=== PATIENT | female | born 1950 | race Two or more races ===

== ENCOUNTER → 2016-09-15 | Outpatient (CLI) | payer MEDICARE, MEDICAID | LOC: RAD 08:46 | PROVIDERS: ATTEND Internal Medicine | DX: N18.3 Chronic kidney disease, stage 3 (moderate) (principal) | CPT/HCPCS: 76770 ==

== ENCOUNTER → 2016-09-16 | Outpatient (CLI) | payer MEDICARE, MEDICAID | LOC: RAD 08:20 | PROVIDERS: ATTEND Internal Medicine | DX: R13.10 Dysphagia, unspecified (principal) | CPT/HCPCS: 74210 ==

== ENCOUNTER 2016-12-18 17:25 | Inpatient (IN) | payer MEDICARE, MEDICAID ==
[2016-12-18] MEDS ORDERED: NORMAL SALINE 250 ML with FUROSEMIDE 250 MG IV PRN ×2 (18:09)
[2016-12-18 19:12] LABS: HEMATOCRIT 33.9 % (36.0-47.0); HEMOGLOBIN 10.8 g/dL (12.0-15.5); HGB HCT DIFFERENCE -1.5; MEAN CORPUSCULAR HEMOGLOBIN 28.5 pg (27.0-33.4); MEAN CORPUSCULAR HGB CONC 31.9 g/dL (32.0-36.0); MEAN CORPUSCULAR VOLUME 89 fl (80-97); RED CELL DISTRIBUTION WIDTH 13.9 % (11.5-14.0); WHITE BLOOD COUNT 6.4 10^3/uL (4.0-10.5)
[2016-12-18 19:33] LABS: ALANINE AMINOTRANSFERASE 19 U/L (9-52); ALBUMIN 3.8 g/dL (3.5-5.0); ALKALINE PHOSPHATASE 89 U/L (38-126); ANION GAP 13 (5-19); ASPARTATE AMINO TRANSFERASE 15 U/L (14-36); BILIRUBIN,DIRECT 0.1 mg/dL (0.0-0.4); BILIRUBIN,TOTAL 0.9 mg/dL (0.2-1.3); BLOOD UREA NITROGEN 23 mg/dL (7-20); CALCIUM 9.4 mg/dL (8.4-10.2); CARBON DIOXIDE 26 mmol/L (22-30); CHLORIDE 103 mmol/L (98-107); CREATINE KINASE 41 U/L (30-135); CREATININE RESULT 1.33 mg/dL (0.52-1.25); GLUCOSE 283 mg/dL (75-110); POTASSIUM 5.2 mmol/L (3.6-5.0); SODIUM 141.9 mmol/L (137-145); TOTAL PROTEIN 7.1 g/dL (6.3-8.2)
--- NOTE | 2016-12-18 19:36 | EKG REPORT ---
SEVERITY:- ABNORMAL ECG - SINUS RHYTHM LEFT BUNDLE BRANCH BLOCK : Confirmed by: Damian Rainey 18-Dec-2016 19:35:48
[2016-12-18 19:45] LABS: CREATINE KINASE MB 0.48 ng/mL (<4.55); TROPONIN I < 0.012 ng/mL
[2016-12-18] MEDS ORDERED: ALBUTEROL SULFATE HFA (90 MCG/PUFF) 8 GM MDI (1 MDI/ER DISP) IH PRN (19:59)
[2016-12-18] MEDS ORDERED: (PENDING PHARMACY ID) (Solifenacin Succinate [Vesicare] 10 MG) PO SCH (20:00)
[2016-12-18] MEDS ORDERED: (PENDING PHARMACY ID) (Topiramate [Topamax] 200 MG) PO SCH (20:00)
[2016-12-18] MEDS ORDERED: (PENDING PHARMACY ID) (Amlodipine/Valsartan/Hcthiazid [Amlod-Valsa-Hctz 10-320-25 Mg] 1 TA PO SCH (20:00)
[2016-12-18 20:34] LABS: THYROID STIMULATING HORMONE 4.19 uIU/mL (0.47-4.68)
[2016-12-18] MEDS ORDERED: METFORMIN HCL 500 MG TABLET PO ONE (21:00)
[2016-12-18] MEDS ORDERED: METOPROLOL SUCCINATE 50 MG TAB.SR.24H PO ONE (21:00)
[2016-12-18] MEDS ORDERED: PIOGLITAZONE HCL 15 MG TABLET PO ONE (21:00)
[2016-12-18] MEDS ORDERED: ALBUTEROL SULFATE HFA (90 MCG/PUFF) 200 PUFF/8.5 GM MDI IH PRN (21:08)
[2016-12-18] MEDS: PREGABALIN 75 MG CAPSULE PO SCH (21:22)
[2016-12-18] MEDS: SIMVASTATIN 40 MG TABLET PO SCH (21:23)
[2016-12-18] MEDS: TOLTERODINE TARTRATE 1 MG TABLET PO SCH (21:25)
[2016-12-18] MEDS: TOPIRAMATE 100 MG TABLET PO SCH (21:25)
[2016-12-18] MEDS: ISOSORB DINIT/HYDRALAZINE HCL 20-37.5 MG TABLET PO SCH (21:26)
[2016-12-18] MEDS ORDERED: HYDROCHLOROTHIAZIDE 25 MG TABLET PO ONE (21:30)
[2016-12-18] MEDS ORDERED: DULOXETINE HCL 30 MG CAPSULE.DR PO ONE (21:30)
[2016-12-18] MEDS ORDERED: VALSARTAN 160 MG TABLET PO ONE (21:30)
[2016-12-18] MEDS ORDERED: AMLODIPINE BESYLATE 10 MG TABLET PO ONE (21:30)
[2016-12-18] MEDS ORDERED: INSULIN GLARGINE,HUM.REC.ANLOG 1,000 UNIT/10 ML UNIT SUBCUT ONE ×2 (22:44→22:46)
[2016-12-18] MEDS: BUDESONIDE/FORMOTEROL 160-4.5 MCG 60 PUFF/6 GM MDI IH SCH (22:45)
[2016-12-18] MEDS: INSULIN GLARGINE,HUM.REC.ANLOG 300 UNIT/3 ML INSULN.PEN SUBCUT SCH (22:45)
[2016-12-18 23:15] LABS: APPEARANCE,URINE CLEAR; BILIRUBIN,URINE NEGATIVE (NEGATIVE); GLUCOSE, URINE 50 mg/dL (NEGATIVE); KETONES,URINE NEGATIVE (NEGATIVE); LEUKOCYTE ESTERASE,URINE NEGATIVE (NEGATIVE); NITRITE,URINE NEGATIVE (NEGATIVE); PROTEIN,URINE 100 mg/dL (NEGATIVE); URINE SPECIFIC GRAVITY 1.015; UROBILINOGEN,URINE NEGATIVE mg/dL (<2.0)
[2016-12-19 03:20] LABS: CREATINE KINASE MB 0.42 ng/mL (<4.55); TROPONIN I < 0.012 ng/mL
[2016-12-19] MEDS: ISOSORB DINIT/HYDRALAZINE HCL 20-37.5 MG TABLET PO SCH ×2 (05:19→14:22)
[2016-12-19] MEDS: TOLTERODINE TARTRATE 1 MG TABLET PO SCH ×2 (09:32→22:30)
[2016-12-19] MEDS: TOPIRAMATE 100 MG TABLET PO SCH ×2 (09:33→22:30)
[2016-12-19] MEDS: DULOXETINE HCL 30 MG CAPSULE.DR PO SCH (09:33)
[2016-12-19] MEDS: HYDROCHLOROTHIAZIDE 25 MG TABLET PO SCH (09:34)
[2016-12-19] MEDS: PREGABALIN 75 MG CAPSULE PO SCH ×2 (09:34→22:30)
[2016-12-19] MEDS: PIOGLITAZONE HCL 15 MG TABLET PO SCH (09:50)
[2016-12-19] MEDS: METFORMIN HCL 500 MG TABLET PO SCH ×3 (09:50→17:05)
[2016-12-19] MEDS: BUDESONIDE/FORMOTEROL 160-4.5 MCG 60 PUFF/6 GM MDI IH SCH ×2 (09:50→22:29)
[2016-12-19] MEDS: VALSARTAN 160 MG TABLET PO SCH (09:50)
[2016-12-19] MEDS: METOPROLOL SUCCINATE 50 MG TAB.SR.24H PO SCH (09:50)
[2016-12-19] MEDS: AMLODIPINE BESYLATE 10 MG TABLET PO SCH (09:50)
[2016-12-19 12:34] LABS: CREATINE KINASE MB 0.63 ng/mL (<4.55)
[2016-12-19 12:38] LABS: TROPONIN I < 0.012 ng/mL
[2016-12-19] MEDS: IPRATROPIUM/ALBUTEROL 0.5-2.5 MG/3 ML AMPUL NEB SCH ×5 (15:02→19:57)
[2016-12-19] MEDS ORDERED: METHYLPREDNISOLONE INJ 125 MG/2 ML SDV IV ONE (15:30)
--- NOTE | 2016-12-19 16:38 | PDOC H&P ---
History of Present Illness Admission Date/PCP: 12/18/16 17:25 ÓSCAR NORRIS MD History of Present Illness: IAN FOSTER is a 66 year old female she came to the office as same day urgent visit,, with many complaints including abdominal distention, shortness of breath, wheezing in the office she was evaluated she was found to have lower extremity edema abdominal distention on percussion of the abdomen there was a suggestion that there was shifting dullness that was suggestive of ascites, because of all of the concern she was admitted directly into the hospital for evaluation. The BMP was normal, these virtually rule out CHF. CAT scan of the abdomen and pelvis without contrast was done and there was no evidence of ascites or any intra-abdominal pathology she has a history of severe persistent asthma with episodes of exacerbation sometime frequently patient was very reluctant to be admitted to the hospital, clinically the differential diagnosis included, CHF, right heart failure, abdominal distention probably due to weight Past Medical History Cardiac Medical History: Reports: Hypertension Pulmonary Medical History: Reports: Asthma Endocrine Medical History: Reports: Diabetes Mellitus Type 2, Obesity Psychiatric Medical History: Reports: Depression Past Surgical History Past Surgical History: Reports: Tubal Ligation Social History Smoking Status: Never Smoker Frequency of Alcohol Use: None Hx Recreational Drug Use: No Drugs: None Hx Prescription Drug Abuse: No Family History Family History: Reviewed & Not Pertinent Parental Family History Reviewed: Yes Children Family History Reviewed: Yes Sibling(s) Family History Reviewed.: Yes Medication/Allergy Home Medications: Albuterol Sulfate [Proair HFA] 2 puff IH Q4HP PRN 12/18/16 Amlodipine/Valsartan/Hcthiazid [Oegua-Zweta-Fatd 10-320-25 mg] 1 tab PO DAILY Budesonide/Formoterol Fumarate [Symbicort HFA 160-4.5 mcg Inhaler 6 gm] 2 puff IH Q12 12/18/16 Cholecalciferol (Vitamin D3) [Vitamin D3] 50,000 unit PO MO 12/18/16 Duloxetine HCl [Cymbalta] 60 mg PO DAILY 12/18/16 Insulin Glargine,Hum.rec.anlog [Lantus Solostar] 40 unit SQ QHS 12/18/16 Isosorb Dinit/Hydralazine HCl [Bidil 20-37.5 mg Tablet] 1 tab PO Q8 12/18/16 Metformin HCl [Glucophage] 500 mg PO TID 12/18/16 Metoprolol Succinate [Toprol Xl 50 mg Tab.sr] 50 mg PO DAILY 12/18/16 Pioglitazone HCl [Actos 15 mg Tablet] 15 mg PO DAILY 12/18/16 Pregabalin [Lyrica 75 mg Capsule] 75 mg PO Q12 12/18/16 Simvastatin [Zocor 40 mg Tablet] 40 mg PO QHS 12/18/16 Solifenacin Succinate [Vesicare] 10 mg PO DAILY 12/18/16 Topiramate [Topamax] 200 mg PO Q12 12/18/16 Allergies/Adverse Reactions: No Known Allergies Allergy (Verified 04/25/13 18:46) Review of Systems Constitutional: PRESENT: weakness Cardiovascular: PRESENT: dyspnea on exertion, edema Respiratory: PRESENT: dyspnea Gastrointestinal: PRESENT: bloating Neurological: ABSENT: abnormal gait, abnormal speech, confusion, dizziness, focal weakness, syncope Psychiatric: ABSENT: anxiety, depression, homidical ideation, suicidal ideation Endocrine: ABSENT: cold intolerance, heat intolerance, menstrual abnormalities, polydipsia, polyuria Hematologic/Lymphatic: ABSENT: easy bleeding, easy bruising, lymphadenopathy Physical Exam Vital Signs: Temp Pulse Resp BP Pulse Ox 98.1 F 65 20 96/46 L 94 12/19/16 11:49 12/19/16 14:00 12/19/16 11:49 12/19/16 11:49 12/19/16 11:49 Intake & Output 12/18/16 12/19/16 12/20/16 06:59 06:59 06:59 Intake Total 1007 636 Output Total 0 Balance 1007 636 Weight 97.3 kg General appearance: PRESENT: no acute distress, well-developed, well-nourished Head exam: PRESENT: atraumatic, normocephalic Eye exam: PRESENT: conjunctiva pink, EOMI, PERRLA Ear exam: PRESENT: normal external ear exam Mouth exam: PRESENT: moist, tongue midline Neck exam: PRESENT: full ROM Respiratory exam: PRESENT: wheezes Cardiovascular exam: PRESENT: RRR, +S1, +S2 Pulses: PRESENT: normal dorsalis pedis pul, +2 pedal pulses bilateral Vascular exam: PRESENT: normal capillary refill GI/Abdominal exam: PRESENT: normal bowel sounds, soft, other - Abdominal distention Rectal exam: PRESENT: deferred Neurological exam: PRESENT: alert, awake, oriented to person, oriented to place , oriented to time, oriented to situation, CN II-XII grossly intact Psychiatric exam: PRESENT: appropriate affect, normal mood Skin exam: PRESENT: dry, intact, warm Results Laboratory Results: 12/18/16 18:45 12/18/16 18:45 12/18/16 12/18/16 12/18/16 18:45 18:45 18:45 WBC 6.4 RBC 3.80 Hgb 10.8 L Hct 33.9 L MCV 89 MCH 28.5 MCHC 31.9 L RDW 13.9 Plt Count 351 Sodium 141.9 Potassium 5.2 H Chloride 103 Carbon Dioxide 26 Anion Gap 13 BUN 23 H Creatinine 1.33 H Est GFR ( Amer) 48 L Est GFR (Non-Af Amer) 40 L Glucose 283 H Calcium 9.4 Total Bilirubin 0.9 AST 15 ALT 19 Alkaline Phosphatase 89 Total Protein 7.1 Albumin 3.8 TSH 4.19 Free T4 0.97 Urine Color Urine Appearance Urine pH Ur Specific [place] Urine Protein Urine Glucose (UA) Urine Ketones Urine Blood Urine Nitrite Ur Leukocyte Esterase Urine WBC (Auto) Urine RBC (Auto) 12/18/16 22:26 WBC RBC Hgb Hct MCV MCH MCHC RDW Plt Count Sodium Potassium Chloride Carbon Dioxide Anion Gap BUN Creatinine Est GFR ( Amer) Est GFR (Non-Af Amer) Glucose Calcium Total Bilirubin AST ALT Alkaline Phosphatase Total Protein Albumin TSH Free T4 Urine Color STRAW Urine Appearance CLEAR Urine pH 8.0 Ur Specific [place] 1.015 Urine Protein 100 H Urine Glucose (UA) 50 H Urine Ketones NEGATIVE Urine Blood NEGATIVE Urine Nitrite NEGATIVE Ur Leukocyte Esterase NEGATIVE Urine WBC (Auto) 1 Urine RBC (Auto) 0 12/18/16 12/18/16 12/19/16 18:45 18:45 02:45 Creatine Kinase 41 38 CK-MB (CK-2) 0.48 Troponin I < 0.012 NT-Pro-B Natriuret Pep 155 12/19/16 12/19/16 12/19/16 02:45 11:46 11:46 Creatine Kinase 38 CK-MB (CK-2) 0.42 0.63 Troponin I < 0.012 < 0.012 NT-Pro-B Natriuret Pep Impressions: Abdomen/Pelvis CT 12/18/16 00:00 IMPRESSION: NO SIGNIFICANT OR ACUTE FINDING IN THE ABDOMEN OR PELVIS ON CT SCAN WITH IV CONTRAST. Chest X-Ray 12/18/16 00:00 IMPRESSION: NO ACUTE CARDIOPULMONARY PROCESS. NO SIGNIFICANT CHANGE FROM PRIOR STUDY. Assessment & Plan - Diagnosis (1) Severe persistent asthma with (acute) exacerbation Is this a current diagnosis for this admission?: YesPlan: She will continue present regimen (2) Bilateral lower extremity edema Is this a current diagnosis for this admission?: YesPlan: She was treated with Lasix infusion to help mobilize the lower extremity edema (3) Type 2 diabetes mellitus Qualifiers: Diabetes mellitus complication status: with neurologic complications Diabetes mellitus complication detail: with polyneuropathy Diabetes mellitus long term care pharmacist insulin use: without group home use Qualified Code(s): E11.42 - Type 2 diabetes mellitus with diabetic polyneuropathy Is this a current diagnosis for this admission?: Yes (4) Abdominal distention Is this a current diagnosis for this admission?: YesPlan: Patient was admitted because of concern for CHF, the BNP was normal this virtually rule out CHF the abdominal distention is most likely from abdominal fat due to excessive calories.
[2016-12-19] MEDS ORDERED: METHYLPREDNISOLONE INJ 40 MG/1 ML SDV IV ONE (18:15)
[2016-12-19 18:50] LABS: HEMATOCRIT 33.5 % (36.0-47.0); HEMOGLOBIN 10.9 g/dL (12.0-15.5); HGB HCT DIFFERENCE -0.8; MEAN CORPUSCULAR HEMOGLOBIN 28.8 pg (27.0-33.4); MEAN CORPUSCULAR HGB CONC 32.7 g/dL (32.0-36.0); MEAN CORPUSCULAR VOLUME 88 fl (80-97); RED CELL DISTRIBUTION WIDTH 13.9 % (11.5-14.0); WHITE BLOOD COUNT 7.9 10^3/uL (4.0-10.5)
[2016-12-19 19:10] LABS: PROTHROMBIN TIME 11.6 SEC (11.4-15.4)
[2016-12-19 19:12] LABS: CREATININE RESULT 2.38 mg/dL (0.52-1.25); PARTIAL THROMBOPLASTIN TIME 35.3 SEC (23.5-35.8)
[2016-12-19] MEDS: HEPARIN SOD (PORCINE) 5,000 UNIT/ML 1 ML SYRINGE SUBCUT SCH (22:28)
[2016-12-19] MEDS: INSULIN GLARGINE,HUM.REC.ANLOG 300 UNIT/3 ML INSULN.PEN SUBCUT SCH (22:29)
[2016-12-19] MEDS: METHYLPREDNISOLONE INJ 40 MG/1 ML SDV IV SCH (22:29)
[2016-12-19] MEDS: SIMVASTATIN 40 MG TABLET PO SCH (22:30)
[2016-12-20] MEDS: IPRATROPIUM/ALBUTEROL 0.5-2.5 MG/3 ML AMPUL NEB SCH ×4 (04:19→12:45)
[2016-12-20] MEDS: HEPARIN SOD (PORCINE) 5,000 UNIT/ML 1 ML SYRINGE SUBCUT SCH ×3 (05:51→22:46)
[2016-12-20] MEDS: METHYLPREDNISOLONE INJ 40 MG/1 ML SDV IV SCH ×3 (05:51→22:46)
[2016-12-20] MEDS ORDERED: DEXTROSE 50%-WATER SYRINGE 12.5 GM/25 ML DOSE IV PRN (08:48)
[2016-12-20] MEDS ORDERED: GLUCAGON,HUMAN RECOMB 1 MG INJ IM PRN ×2 (08:48→17:59)
[2016-12-20] MEDS ORDERED: DEXTROSE 40% GEL 15 GM TUBE PO PRN ×3 (08:48→17:59)
[2016-12-20] MEDS ORDERED: DEXTROSE 50%-WATER SYRINGE 25 GM/50 ML DOSE IV PRN (08:48)
[2016-12-20] MEDS ORDERED: DEXTROSE 40% GEL 15 GM TUBE X 2 PO PRN (08:48)
[2016-12-20] MEDS: VALSARTAN 160 MG TABLET PO SCH (10:37)
[2016-12-20] MEDS: PREGABALIN 75 MG CAPSULE PO SCH ×2 (10:39→22:47)
[2016-12-20 10:41] LABS: URINE CREATININE 132.4 mg/dL (15-278); URINE PROTEIN 41.6 mg/dL (<12)
[2016-12-20] MEDS: METOPROLOL SUCCINATE 50 MG TAB.SR.24H PO SCH (10:42)
[2016-12-20] MEDS: DULOXETINE HCL 30 MG CAPSULE.DR PO SCH (10:42)
[2016-12-20] MEDS: AMLODIPINE BESYLATE 10 MG TABLET PO SCH (10:42)
[2016-12-20] MEDS: HYDROCHLOROTHIAZIDE 25 MG TABLET PO SCH (10:43)
[2016-12-20] MEDS: INSULIN LISPRO 100 UNIT/ML 3 ML VIAL SUBCUT PRN ×2 (10:59→16:13)
[2016-12-20] MEDS: METFORMIN HCL 500 MG TABLET PO SCH ×3 (11:08→17:16)
[2016-12-20] MEDS: PIOGLITAZONE HCL 15 MG TABLET PO SCH (11:08)
[2016-12-20] MEDS: TOPIRAMATE 100 MG TABLET PO SCH ×2 (11:08→22:47)
[2016-12-20] MEDS: TOLTERODINE TARTRATE 1 MG TABLET PO SCH ×2 (11:08→22:48)
[2016-12-20] MEDS: BUDESONIDE/FORMOTEROL 160-4.5 MCG 60 PUFF/6 GM MDI IH SCH ×2 (11:08→22:47)
[2016-12-20] MEDS ORDERED: NORMAL SALINE 1000 ML 1,000 ML IV PRN (14:50)
[2016-12-20 16:42] LABS: ALANINE AMINOTRANSFERASE 22 U/L (9-52); ALBUMIN 3.8 g/dL (3.5-5.0); ALKALINE PHOSPHATASE 101 U/L (38-126); ANION GAP 15 (5-19); ASPARTATE AMINO TRANSFERASE 14 U/L (14-36); BILIRUBIN,DIRECT 0.4 mg/dL (0.0-0.4); BILIRUBIN,TOTAL 0.9 mg/dL (0.2-1.3); BLOOD UREA NITROGEN 67 mg/dL (7-20); CALCIUM 8.7 mg/dL (8.4-10.2); CARBON DIOXIDE 19 mmol/L (22-30); CHLORIDE 95 mmol/L (98-107); CREATININE RESULT 2.86 mg/dL (0.52-1.25); SODIUM 129.3 mmol/L (137-145); TOTAL PROTEIN 7.2 g/dL (6.3-8.2)
[2016-12-20 16:50] LABS: GLUCOSE 415 mg/dL (75-110)
[2016-12-20 16:51] LABS: POTASSIUM 6.2 mmol/L (3.6-5.0)
[2016-12-20] MEDS: SODIUM POLYSTYRENE SULFONATE 15 GM/60 ML PO SCH ×2 (17:13→22:48)
--- NOTE | 2016-12-20 17:58 | PDOC PROGRESS REPORT ---
Subjective Progress Note for:: 12/20/16 Subjective:: She was admitted originally for observation due to suspected CHF but CHF was rule out because of normal BNP, she then developed acute exacerbation of severe persistent asthma then she was started on IV Solu-Medrol yesterday initial intent was admitted for observation, on admission because of distended abdomen CT scan of the abdomen and pelvis was done with IV contrast on admission the serum creatinine was 1.3 serum creatinine today is 2 suggesting acute kidney injury probably due to combination of contrast and low blood pressure. Patient CARE will not be transitioned to inpatient care from observation care Physical Exam Vital Signs: Temp Pulse Resp BP Pulse Ox 98.4 F 95 21 H 123/61 92 12/20/16 15:01 12/20/16 15:01 12/20/16 15:01 12/20/16 15:01 12/20/16 15:01 Intake & Output 12/19/16 12/20/16 12/21/16 06:59 06:59 06:59 Intake Total 1007 1448 560 Output Total 0 260 Balance 1007 1448 300 Weight 97.3 kg 98.4 kg General appearance: PRESENT: mild distress Eye exam: PRESENT: PERRLA Respiratory exam: PRESENT: wheezes Cardiovascular exam: PRESENT: +S1, +S2 GI/Abdominal exam: PRESENT: distended, soft Extremities exam: PRESENT: pedal edema Neurological exam: PRESENT: alert, CN II-XII grossly intact Skin exam: PRESENT: other Results Laboratory Results: 12/19/16 18:40 12/20/16 16:15 12/19/16 12/19/16 12/20/16 18:40 18:40 16:15 WBC 7.9 RBC 3.80 Hgb 10.9 L Hct 33.5 L MCV 88 MCH 28.8 MCHC 32.7 RDW 13.9 Plt Count 348 Sodium 129.3 L Potassium 6.2 H* Chloride 95 L Carbon Dioxide 19 L Anion Gap 15 BUN 67 H Creatinine 2.38 H 2.86 H Est GFR ( Amer) 25 L 20 L Est GFR (Non-Af Amer) 20 L 16 L Glucose 415 H* Calcium 8.7 Total Bilirubin 0.9 AST 14 ALT 22 Alkaline Phosphatase 101 Total Protein 7.2 Albumin 3.8 12/18/16 12/18/16 12/19/16 18:45 18:45 02:45 Creatine Kinase 41 38 CK-MB (CK-2) 0.48 Troponin I < 0.012 NT-Pro-B Natriuret Pep 155 12/19/16 12/19/16 12/19/16 02:45 11:46 11:46 Creatine Kinase 38 CK-MB (CK-2) 0.42 0.63 Troponin I < 0.012 < 0.012 NT-Pro-B Natriuret Pep Impressions: Abdomen/Pelvis CT 12/18/16 00:00 IMPRESSION: NO SIGNIFICANT OR ACUTE FINDING IN THE ABDOMEN OR PELVIS ON CT SCAN WITH IV CONTRAST. Chest X-Ray 12/18/16 00:00 IMPRESSION: NO ACUTE CARDIOPULMONARY PROCESS. NO SIGNIFICANT CHANGE FROM PRIOR STUDY. Assessment & Plan - Diagnosis (1) Severe persistent asthma with (acute) exacerbation Is this a current diagnosis for this admission?: YesPlan: We will continue Solu-Medrol (2) Bilateral lower extremity edema Is this a current diagnosis for this admission?: Yes (3) Type 2 diabetes mellitus Qualifiers: Diabetes mellitus complication status: with neurologic complications Diabetes mellitus complication detail: with polyneuropathy Diabetes mellitus correction insulin use: without ferry terminal agent use Qualified Code(s): E11.42 - Type 2 diabetes mellitus with diabetic polyneuropathy; Z79.4 - FPC (current) use of insulin Is this a current diagnosis for this admission?: Yes (4) Abdominal distention Is this a current diagnosis for this admission?: Yes (5) Acute kidney injury Is this a current diagnosis for this admission?: YesPlan: Acute kidney injury most likely due to combination of contrast and low blood pressure, start IV fluid (6) Acute tubular necrosis Is this a current diagnosis for this admission?: YesPlan: She probably has ATN due to low blood pressure and contrast (7) Hyperkalemia Plan: Give Kayexalate (8) Diabetes mellitus Qualifiers: Diabetes mellitus type: type 2 Diabetes mellitus complication status: with hyperglycemia Diabetes mellitus ferry terminal agent insulin use: with correction use Qualified Code(s): E11.65 - Type 2 diabetes mellitus with hyperglycemia; Z79.4 - termite inspector (current) use of insulin Is this a current diagnosis for this admission?: YesPlan: Start insulin drip
[2016-12-20] MEDS ORDERED: NORMAL SALINE 100 ML with INSULIN REGULAR, HUMAN 100 UNIT IV PRN ×2 (17:59)
[2016-12-20] MEDS ORDERED: DEXTROSE 50%-WATER 25 GM/50 ML DISP.SYRIN IV PRN ×2 (17:59)
[2016-12-20] MEDS ORDERED: LANSOPRAZOLE 30 MG TAB.RAP.DR PO ONE (19:00)
[2016-12-20 19:55] LABS: AMORPHOUS SEDIMENT,URINE TRACE /HPF; APPEARANCE,URINE SLIGHTLY-CLOUDY; BILIRUBIN,URINE NEGATIVE (NEGATIVE); GLUCOSE, URINE 150 mg/dL (NEGATIVE); KETONES,URINE NEGATIVE (NEGATIVE); LEUKOCYTE ESTERASE,URINE NEGATIVE (NEGATIVE); NITRITE,URINE NEGATIVE (NEGATIVE); PROTEIN,URINE 30 mg/dL (NEGATIVE); URINE SPECIFIC GRAVITY 1.015; UROBILINOGEN,URINE NEGATIVE mg/dL (<2.0)
[2016-12-20 20:57] LABS: ANION GAP 15 (5-19); BLOOD UREA NITROGEN 72 mg/dL (7-20); CALCIUM 8.9 mg/dL (8.4-10.2); CARBON DIOXIDE 22 mmol/L (22-30); CHLORIDE 97 mmol/L (98-107); CREATININE RESULT 2.92 mg/dL (0.52-1.25); GLUCOSE 160 mg/dL (75-110); SODIUM 134.2 mmol/L (137-145)
--- NOTE | 2016-12-20 22:47 | EKG REPORT ---
SEVERITY:- ABNORMAL ECG - SINUS RHYTHM LEFT BUNDLE BRANCH BLOCK : Confirmed by: Damian Rainey 20-Dec-2016 22:47:10
[2016-12-20] MEDS: SIMVASTATIN 40 MG TABLET PO SCH (22:48)
[2016-12-20] MEDS: INSULIN GLARGINE,HUM.REC.ANLOG 300 UNIT/3 ML INSULN.PEN SUBCUT SCH (22:51)
[2016-12-21] MEDS ORDERED: ONDANSETRON HCL 8 MG TABLET PO PRN (00:42)
[2016-12-21 01:31] LABS: ANION GAP 17 (5-19); BLOOD UREA NITROGEN 75 mg/dL (7-20); CALCIUM 8.9 mg/dL (8.4-10.2); CARBON DIOXIDE 20 mmol/L (22-30); CHLORIDE 98 mmol/L (98-107); CREATININE RESULT 2.64 mg/dL (0.52-1.25); GLUCOSE 159 mg/dL (75-110); POTASSIUM 5.9 mmol/L (3.6-5.0); SODIUM 135.2 mmol/L (137-145)
[2016-12-21] MEDS: SODIUM POLYSTYRENE SULFONATE 15 GM/60 ML PO SCH ×4 (02:35→17:06)
[2016-12-21] MEDS: IPRATROPIUM/ALBUTEROL 0.5-2.5 MG/3 ML AMPUL NEB PRN (02:50)
[2016-12-21 05:26] LABS: ANION GAP 16 (5-19); BLOOD UREA NITROGEN 72 mg/dL (7-20); CALCIUM 8.8 mg/dL (8.4-10.2); CARBON DIOXIDE 22 mmol/L (22-30); CHLORIDE 98 mmol/L (98-107); GLUCOSE 164 mg/dL (75-110); SODIUM 136.2 mmol/L (137-145)
[2016-12-21 05:32] LABS: POTASSIUM 6.5 mmol/L (3.6-5.0)
[2016-12-21] MEDS: HEPARIN SOD (PORCINE) 5,000 UNIT/ML 1 ML SYRINGE SUBCUT SCH ×3 (05:56→22:07)
[2016-12-21] MEDS: METHYLPREDNISOLONE INJ 40 MG/1 ML SDV IV SCH ×3 (05:56→22:06)
[2016-12-21] MEDS ORDERED: SODIUM POLYSTYRENE SULFONATE 15 GM/60 ML PO ONE (07:00)
[2016-12-21] MEDS ORDERED: DEXTROSE 50%-WATER 25 GM/50 ML DISP.SYRIN IV ONE (07:00)
[2016-12-21] MEDS ORDERED: INSULIN REG, HUMAN 100 UNIT/ML 3 ML VIAL (PYX) IV ONE ×2 (07:00→08:30)
[2016-12-21] MEDS ORDERED: CALCIUM GLUCONATE 1,000 MG in DEXTROSE 5%-WATER 50 ML IV ONE (07:00)
[2016-12-21] MEDS ORDERED: CALCIUM GLUCONATE 1000 MG/10 ML INJ IV ONE ×2 (07:02→19:30)
[2016-12-21] MEDS ORDERED: DEXTROSE 50%-WATER SYRINGE 12.5 GM/25 ML DOSE IV ONE (08:30)
[2016-12-21] MEDS: HYDROCHLOROTHIAZIDE 25 MG TABLET PO SCH (09:17)
[2016-12-21] MEDS: LANSOPRAZOLE 30 MG TAB.RAP.DR PO SCH (09:17)
[2016-12-21] MEDS: TOLTERODINE TARTRATE 1 MG TABLET PO SCH ×2 (09:17→22:07)
[2016-12-21] MEDS: VALSARTAN 160 MG TABLET PO SCH (09:17)
[2016-12-21] MEDS: AMLODIPINE BESYLATE 10 MG TABLET PO SCH (09:18)
[2016-12-21] MEDS: DULOXETINE HCL 30 MG CAPSULE.DR PO SCH (09:18)
[2016-12-21] MEDS: PREGABALIN 75 MG CAPSULE PO SCH ×2 (09:18→22:06)
[2016-12-21] MEDS: METOPROLOL SUCCINATE 50 MG TAB.SR.24H PO SCH (09:18)
[2016-12-21 09:26] LABS: ANION GAP 15 (5-19); BLOOD UREA NITROGEN 73 mg/dL (7-20); CALCIUM 8.6 mg/dL (8.4-10.2); CARBON DIOXIDE 20 mmol/L (22-30); CHLORIDE 99 mmol/L (98-107); CREATININE RESULT 2.47 mg/dL (0.52-1.25); GLUCOSE 272 mg/dL (75-110); POTASSIUM 5.8 mmol/L (3.6-5.0); SODIUM 133.7 mmol/L (137-145)
[2016-12-21] MEDS: METFORMIN HCL 500 MG TABLET PO SCH ×3 (09:29→17:06)
[2016-12-21] MEDS: BUDESONIDE/FORMOTEROL 160-4.5 MCG 60 PUFF/6 GM MDI IH SCH ×2 (09:29→22:06)
[2016-12-21] MEDS: PIOGLITAZONE HCL 15 MG TABLET PO SCH (09:29)
[2016-12-21] MEDS: TOPIRAMATE 100 MG TABLET PO SCH ×2 (09:29→22:06)
[2016-12-21] MEDS ORDERED: SODIUM POLYSTYRENE SULFONATE 15 GM/60 ML PO SCH ×2 (10:00→19:30)
[2016-12-21] MEDS ORDERED: ERGOCALCIFEROL (VITAMIN D2) 50000 UNIT (1.25 MG) CAPSULE PO SCH (10:00)
[2016-12-21 13:22] LABS: ANION GAP 13 (5-19); BLOOD UREA NITROGEN 74 mg/dL (7-20); CALCIUM 8.2 mg/dL (8.4-10.2); CARBON DIOXIDE 20 mmol/L (22-30); CHLORIDE 100 mmol/L (98-107); CREATININE RESULT 2.48 mg/dL (0.52-1.25); GLUCOSE 256 mg/dL (75-110); SODIUM 133.3 mmol/L (137-145)
[2016-12-21] MEDS: INSULIN LISPRO 100 UNIT/ML 3 ML VIAL SUBCUT PRN ×3 (13:22→22:06)
[2016-12-21 13:28] LABS: POTASSIUM 6.9 mmol/L (3.6-5.0)
[2016-12-21 16:43] LABS: ANION GAP 13 (5-19); BLOOD UREA NITROGEN 76 mg/dL (7-20); CALCIUM 8.1 mg/dL (8.4-10.2); CARBON DIOXIDE 19 mmol/L (22-30); CHLORIDE 100 mmol/L (98-107); CREATININE RESULT 2.49 mg/dL (0.52-1.25); GLUCOSE 303 mg/dL (75-110); SODIUM 132.4 mmol/L (137-145)
[2016-12-21 16:50] LABS: POTASSIUM 6.3 mmol/L (3.6-5.0)
[2016-12-21] MEDS: NORMAL SALINE 1000 ML 1,000 ML IV PRN (17:01)
[2016-12-21 18:45] LABS: ALANINE AMINOTRANSFERASE 23 U/L (9-52); ALBUMIN 3.9 g/dL (3.5-5.0); ALKALINE PHOSPHATASE 83 U/L (38-126); ANION GAP 16 (5-19); ASPARTATE AMINO TRANSFERASE 16 U/L (14-36); BILIRUBIN,DIRECT 0.3 mg/dL (0.0-0.4); BILIRUBIN,TOTAL 0.7 mg/dL (0.2-1.3); BLOOD UREA NITROGEN 77 mg/dL (7-20); CALCIUM 8.6 mg/dL (8.4-10.2); CARBON DIOXIDE 21 mmol/L (22-30); CHLORIDE 100 mmol/L (98-107); GLUCOSE 247 mg/dL (75-110); POTASSIUM 5.8 mmol/L (3.6-5.0); SODIUM 136.9 mmol/L (137-145); TOTAL PROTEIN 7.4 g/dL (6.3-8.2)
--- NOTE | 2016-12-21 18:54 | XCELERA REPORT ---
[address] [address] Transthoracic Echocardiogram Report Name: IAN FOSTER I Age: 66 yrs Gender: Female : 1950 Patient Status: Inpatient Patient Location: 3S\S\330\S\A Study Date: 12/21/2016 10:04 AM Height: 61 in Weight: 226 lb BSA: 2.0 m2 Procedure: A complete two-dimensional transthoracic echocardiogram was performed (2D, M-mode, spectral and color flow Doppler). The study was technically difficult with many images being suboptimal in quality. Reason For Study: CHF Ordering Physician: ÓSCAR NORRIS Performed By: Becca Gilliland Interpretation Summary The study was technically difficult with many images being suboptimal in quality. The left ventricular ejection fraction is normal. There is mild concentric left ventricular hypertrophy. Doppler measurements suggest pseudonormalized left ventricular relaxation, which is associated with grade II/IV or mild to moderate diastolic dysfunction The left ventricle is grossly normal size. Wall motion cannot be accurately commented on, but no definite regional wall motion abnormalities noted. The right ventricular systolic function is normal. Borderline left atrial enlargement. The right atrium is normal in size There is a trace amount of mitral regurgitation There is no mitral valve stenosis. There is a trace amount of aortic regurgitation There is no aortic valve stenosis There is a trace or physiologic amount of tricuspid regurgitation Tricuspid regurgitation jet envelope not well defined to measure RV systolic pressure accurately. The aortic root is not well visualized. The inferior vena cava was not well visualized Minimal pericardial effusion. MMode/2D Measurements \T\ Calculations RVDd: 2.4 cm LVIDd: 4.2 cm FS: 27.4 % Ao root diam: 2.7 cm IVSd: 1.2 cm LVIDs: 3.0 cm EDV(Teich): 77.6 ml LVPWd: 1.2 cm ESV(Teich): 35.9 ml Ao root area: 5.8 cm2 EF(Teich): 53.7 % LA dimension: 3.6 cm LVOT diam: 1.8 cm LVOT area: 2.6 cm2 Doppler Measurements \T\ Calculations MV E max lexa: MV P1/2t max lexa: Ao V2 max: LV V1 max P.4 cm/sec 87.4 cm/sec 167.2 cm/sec 5.6 mmHg MV A max lexa: MV P1/2t: 41.4 msec Ao max PG: LV V1 max: 124.4 cm/sec MVA(P1/2t): 5.3 cm2 11.2 mmHg 118.5 cm/sec MV E/A: 0.69 MV dec slope: MBAEL(V,D): 1.8 cm2 618.2 cm/sec2 PA V2 max: TR max lexa: 102.7 cm/sec 232.4 cm/sec PA max P.2 mmHgTR max P.6 mmHg Left Ventricle The left ventricle is grossly normal size. There is mild concentric left ventricular hypertrophy. The left ventricular ejection fraction is normal. Doppler measurements suggest pseudonormalized left ventricular relaxation, which is associated with grade II/IV or mild to moderate diastolic dysfunction. Wall motion cannot be accurately commented on, but no definite regional wall motion abnormalities noted. Right Ventricle The right ventricle is grossly normal size. There is normal right ventricular wall thickness. The right ventricular systolic function is normal. Atria The right atrium is normal in size. Borderline left atrial enlargement. Interarterial septum not well visualized and not well dopplered. Cannot comment on ASD/PFO presence. Mitral Valve The mitral valve leaflets are sclerotic, but show no functional abnormalities. There is no mitral valve stenosis. There is a trace amount of mitral regurgitation. Aortic Valve The aortic valve is not well visualized secondary to technical limitations. There is no aortic valve stenosis. There is a trace amount of aortic regurgitation. Tricuspid Valve The tricuspid valve is not well visualized secondary to technical limitations. There is no tricuspid stenosis. There is a trace or physiologic amount of tricuspid regurgitation. Tricuspid regurgitation jet envelope not well defined to measure RV systolic pressure accurately. Pulmonic Valve The pulmonic valve is not well visualized. Great Vessels The aortic root is not well visualized. The inferior vena cava was not well visualized. Effusions Minimal pericardial effusion. : ÓSCAR NORRIS > Damian Rainey
[2016-12-21] MEDS ORDERED: (PENDING PHARMACY ID) (Cholecalciferol (Vitamin D3) [Vitamin D3] 50,000 UNIT) PO SCH (19:59)
--- NOTE | 2016-12-21 20:24 | PDOC PROGRESS REPORT ---
Subjective Progress Note for:: 12/21/16 Subjective:: She has persistent hyperkalemia despite treatment with insulin, Kayexalate gluconate, she sustained acute kidney injury due to ATN from combination of low blood pressure and contrast nephropathy I explained to the daughter her present condition, she continues to refuse the Kayexalate on at least one of the reason why the hyperkalemia state persisted Physical Exam Vital Signs: Temp Pulse Resp BP Pulse Ox 97.8 F 71 22 H 122/61 95 12/21/16 15:29 12/21/16 15:29 12/21/16 15:29 12/21/16 15:29 12/21/16 15:58 Intake & Output 12/20/16 12/21/16 12/22/16 06:59 06:59 06:59 Intake Total 1448 2286 957 Output Total 0 510 Balance 1448 1776 957 Weight 98.4 kg 102.8 kg General appearance: PRESENT: no acute distress Eye exam: PRESENT: PERRLA Respiratory exam: PRESENT: wheezes Cardiovascular exam: PRESENT: +S1, +S2 GI/Abdominal exam: PRESENT: soft Neurological exam: PRESENT: alert Results Laboratory Results: 12/19/16 18:40 12/21/16 18:00 12/20/16 12/21/16 12/21/16 20:30 00:35 04:37 Sodium 134.2 L 135.2 L 136.2 L Potassium 6.0 H* 5.9 H 6.5 H* Chloride 97 L 98 98 Carbon Dioxide 22 20 L 22 Anion Gap 15 17 16 BUN 72 H 75 H 72 H Creatinine 2.92 H 2.64 H 2.70 H Est GFR ( Amer) 19 L 22 L 21 L Est GFR (Non-Af Amer) 16 L 18 L 18 L Glucose 160 H 159 H 164 H Calcium 8.9 8.9 8.8 Total Bilirubin AST ALT Alkaline Phosphatase Total Protein Albumin 12/21/16 12/21/16 12/21/16 08:30 12:53 16:12 Sodium 133.7 L 133.3 L 132.4 L Potassium 5.8 H 6.9 H* D 6.3 H* Chloride 99 100 100 Carbon Dioxide 20 L 20 L 19 L Anion Gap 15 13 13 BUN 73 H 74 H 76 H Creatinine 2.47 H 2.48 H 2.49 H Est GFR ( Amer) 24 L 24 L 23 L Est GFR (Non-Af Amer) 20 L 19 L 19 L Glucose 272 H 256 H 303 H Calcium 8.6 8.2 L 8.1 L Total Bilirubin AST ALT Alkaline Phosphatase Total Protein Albumin 12/21/16 18:00 Sodium 136.9 L Potassium 5.8 H Chloride 100 Carbon Dioxide 21 L Anion Gap 16 BUN 77 H Creatinine 2.50 H Est GFR ( Amer) 23 L Est GFR (Non-Af Amer) 19 L Glucose 247 H Calcium 8.6 Total Bilirubin 0.7 AST 16 ALT 23 Alkaline Phosphatase 83 Total Protein 7.4 Albumin 3.9 12/18/16 12/18/16 12/19/16 18:45 18:45 02:45 Creatine Kinase 41 38 CK-MB (CK-2) 0.48 Troponin I < 0.012 NT-Pro-B Natriuret Pep 155 12/19/16 12/19/16 12/19/16 02:45 11:46 11:46 Creatine Kinase 38 CK-MB (CK-2) 0.42 0.63 Troponin I < 0.012 < 0.012 NT-Pro-B Natriuret Pep Impressions: Abdomen/Pelvis CT 12/18/16 00:00 IMPRESSION: NO SIGNIFICANT OR ACUTE FINDING IN THE ABDOMEN OR PELVIS ON CT SCAN WITH IV CONTRAST. Chest X-Ray 12/18/16 00:00 IMPRESSION: NO ACUTE CARDIOPULMONARY PROCESS. NO SIGNIFICANT CHANGE FROM PRIOR STUDY. Renal Ultrasound 12/20/16 00:00 IMPRESSION: No acute finding. Assessment & Plan - Diagnosis (1) Severe persistent asthma with (acute) exacerbation Is this a current diagnosis for this admission?: Yes (2) Bilateral lower extremity edema Is this a current diagnosis for this admission?: Yes (3) Type 2 diabetes mellitus Qualifiers: Diabetes mellitus complication status: with neurologic complications Diabetes mellitus complication detail: with polyneuropathy Diabetes mellitus lobsterman insulin use: without custodial use Qualified Code(s): E11.42 - Type 2 diabetes mellitus with diabetic polyneuropathy; Z79.4 - long-term (current) use of insulin Is this a current diagnosis for this admission?: Yes (4) Abdominal distention Is this a current diagnosis for this admission?: Yes (5) Acute kidney injury Is this a current diagnosis for this admission?: Yes (6) Acute tubular necrosis Is this a current diagnosis for this admission?: Yes (8) Diabetes mellitus Qualifiers: Diabetes mellitus type: type 2 Diabetes mellitus complication status: with hyperglycemia Diabetes mellitus custodial insulin use: with custodial use Qualified Code(s): E11.65 - Type 2 diabetes mellitus with hyperglycemia; Z79.4 - terminal clerk (current) use of insulin Is this a current diagnosis for this admission?: Yes - Plan Summary Plan Summary: She has acute tubular necrosis with hyperkalemia, she was given Kayexalate enema
[2016-12-21] MEDS: SODIUM POLYSTYRENE SULFONATE 15 GM/60 ML PR SCH (22:05)
[2016-12-21] MEDS: SIMVASTATIN 40 MG TABLET PO SCH (22:06)
[2016-12-21] MEDS: INSULIN GLARGINE,HUM.REC.ANLOG 300 UNIT/3 ML INSULN.PEN SUBCUT SCH (22:06)
[2016-12-21 22:39] LABS: ANION GAP 14 (5-19); BLOOD UREA NITROGEN 76 mg/dL (7-20); CALCIUM 8.3 mg/dL (8.4-10.2); CARBON DIOXIDE 21 mmol/L (22-30); CHLORIDE 100 mmol/L (98-107); CREATININE RESULT 2.35 mg/dL (0.52-1.25); GLUCOSE 222 mg/dL (75-110); POTASSIUM 5.4 mmol/L (3.6-5.0)
[2016-12-22 02:18] LABS: ANION GAP 11 (5-19); BLOOD UREA NITROGEN 77 mg/dL (7-20); CALCIUM 8.2 mg/dL (8.4-10.2); CARBON DIOXIDE 23 mmol/L (22-30); CHLORIDE 105 mmol/L (98-107); CREATININE RESULT 2.22 mg/dL (0.52-1.25); GLUCOSE 179 mg/dL (75-110); POTASSIUM 5.2 mmol/L (3.6-5.0); SODIUM 139.2 mmol/L (137-145)
[2016-12-22] MEDS: NORMAL SALINE 1000 ML 1,000 ML IV PRN ×3 (02:55→23:28)
[2016-12-22] MEDS: SODIUM POLYSTYRENE SULFONATE 15 GM/60 ML PR SCH ×3 (03:11→15:02)
[2016-12-22] MEDS: HEPARIN SOD (PORCINE) 5,000 UNIT/ML 1 ML SYRINGE SUBCUT SCH ×3 (05:15→23:17)
[2016-12-22] MEDS: METHYLPREDNISOLONE INJ 40 MG/1 ML SDV IV SCH ×3 (05:15→23:17)
[2016-12-22 06:17] LABS: ANION GAP 14 (5-19); BLOOD UREA NITROGEN 71 mg/dL (7-20); CALCIUM 8.3 mg/dL (8.4-10.2); CARBON DIOXIDE 22 mmol/L (22-30); CHLORIDE 105 mmol/L (98-107); CREATININE RESULT 2.11 mg/dL (0.52-1.25); GLUCOSE 188 mg/dL (75-110); POTASSIUM 5.1 mmol/L (3.6-5.0); SODIUM 140.6 mmol/L (137-145)
[2016-12-22] MEDS: INSULIN LISPRO 100 UNIT/ML 3 ML VIAL SUBCUT PRN ×4 (08:04→23:17)
[2016-12-22] MEDS: TOLTERODINE TARTRATE 1 MG TABLET PO SCH ×2 (09:30→23:01)
[2016-12-22] MEDS: LANSOPRAZOLE 30 MG TAB.RAP.DR PO SCH (09:30)
[2016-12-22] MEDS: PREGABALIN 75 MG CAPSULE PO SCH ×2 (09:30→23:16)
[2016-12-22] MEDS: BUDESONIDE/FORMOTEROL 160-4.5 MCG 60 PUFF/6 GM MDI IH SCH ×2 (09:32→23:16)
[2016-12-22] MEDS: DULOXETINE HCL 30 MG CAPSULE.DR PO SCH (09:33)
[2016-12-22] MEDS: METOPROLOL SUCCINATE 50 MG TAB.SR.24H PO SCH (09:33)
[2016-12-22] MEDS: AMLODIPINE BESYLATE 10 MG TABLET PO SCH (09:33)
[2016-12-22] MEDS: HYDROCHLOROTHIAZIDE 25 MG TABLET PO SCH (09:33)
[2016-12-22] MEDS: VALSARTAN 160 MG TABLET PO SCH (09:33)
[2016-12-22] MEDS: TOPIRAMATE 100 MG TABLET PO SCH ×2 (09:33→23:17)
[2016-12-22 10:54] LABS: ANION GAP 15 (5-19); BLOOD UREA NITROGEN 70 mg/dL (7-20); CALCIUM 8.4 mg/dL (8.4-10.2); CARBON DIOXIDE 20 mmol/L (22-30); CHLORIDE 106 mmol/L (98-107); CREATININE RESULT 2.11 mg/dL (0.52-1.25); GLUCOSE 250 mg/dL (75-110); POTASSIUM 4.8 mmol/L (3.6-5.0); SODIUM 140.8 mmol/L (137-145)
[2016-12-22 14:23] LABS: ANION GAP 14 (5-19); BLOOD UREA NITROGEN 71 mg/dL (7-20); CALCIUM 8.3 mg/dL (8.4-10.2); CARBON DIOXIDE 22 mmol/L (22-30); CHLORIDE 105 mmol/L (98-107); CREATININE RESULT 2.04 mg/dL (0.52-1.25); GLUCOSE 319 mg/dL (75-110); POTASSIUM 4.8 mmol/L (3.6-5.0); SODIUM 140.6 mmol/L (137-145)
[2016-12-22] MEDS: IPRATROPIUM/ALBUTEROL 0.5-2.5 MG/3 ML AMPUL NEB PRN (14:47)
[2016-12-22 18:48] LABS: ANION GAP 14 (5-19); BLOOD UREA NITROGEN 66 mg/dL (7-20); CALCIUM 8.3 mg/dL (8.4-10.2); CARBON DIOXIDE 21 mmol/L (22-30); CHLORIDE 106 mmol/L (98-107); CREATININE RESULT 1.92 mg/dL (0.52-1.25); GLUCOSE 335 mg/dL (75-110); POTASSIUM 4.9 mmol/L (3.6-5.0); SODIUM 140.9 mmol/L (137-145)
--- NOTE | 2016-12-22 20:22 | PDOC PROGRESS REPORT ---
Subjective Progress Note for:: 12/22/16 Subjective:: She is in recovery phase of ATN, kidney function is improving, potassium is now normal Physical Exam Vital Signs: Temp Pulse Resp BP Pulse Ox 97.7 F 80 20 149/59 H 96 12/22/16 16:09 12/22/16 16:09 12/22/16 16:09 12/22/16 16:09 12/22/16 17:19 Intake & Output 12/21/16 12/22/16 12/23/16 06:59 06:59 06:59 Intake Total 2286 2184 2497 Output Total 510 300 400 Balance 1776 1884 2097 Weight 102.8 kg 101.8 kg General appearance: PRESENT: no acute distress, well-developed, well-nourished Head exam: PRESENT: atraumatic, normocephalic Eye exam: PRESENT: conjunctiva pink, EOMI, PERRLA. ABSENT: scleral icterus Ear exam: PRESENT: normal external ear exam Mouth exam: PRESENT: moist, tongue midline Neck exam: PRESENT: full ROM Respiratory exam: PRESENT: clear to auscultation leroy Cardiovascular exam: PRESENT: RRR. ABSENT: diastolic murmur, rubs, systolic murmur Pulses: PRESENT: normal dorsalis pedis pul, +2 pedal pulses bilateral Vascular exam: PRESENT: normal capillary refill GI/Abdominal exam: PRESENT: normal bowel sounds, soft Rectal exam: PRESENT: deferred Neurological exam: PRESENT: alert, awake, oriented to person, oriented to place , oriented to time, oriented to situation, CN II-XII grossly intact. ABSENT: motor sensory deficit Psychiatric exam: PRESENT: appropriate affect, normal mood. ABSENT: homicidal ideation, suicidal ideation Skin exam: PRESENT: dry, intact, warm. ABSENT: cyanosis, rash Results Laboratory Results: 12/19/16 18:40 12/22/16 18:00 12/21/16 12/22/16 12/22/16 21:54 01:50 05:28 Sodium 135.0 L 139.2 140.6 Potassium 5.4 H 5.2 H 5.1 H Chloride 100 105 105 Carbon Dioxide 21 L 23 22 Anion Gap 14 11 14 BUN 76 H 77 H 71 H Creatinine 2.35 H 2.22 H 2.11 H Est GFR ( Amer) 25 L 27 L 28 L Est GFR (Non-Af Amer) 21 L 22 L 23 L Glucose 222 H 179 H 188 H Calcium 8.3 L 8.2 L 8.3 L 12/22/16 12/22/16 12/22/16 10:13 13:50 18:00 Sodium 140.8 140.6 140.9 Potassium 4.8 4.8 4.9 Chloride 106 105 106 Carbon Dioxide 20 L 22 21 L Anion Gap 15 14 14 BUN 70 H 71 H 66 H Creatinine 2.11 H 2.04 H 1.92 H Est GFR ( Amer) 28 L 29 L 32 L Est GFR (Non-Af Amer) 23 L 24 L 26 L Glucose 250 H 319 H 335 H Calcium 8.4 8.3 L 8.3 L 12/18/16 12/18/16 12/19/16 18:45 18:45 02:45 Creatine Kinase 41 38 CK-MB (CK-2) 0.48 Troponin I < 0.012 NT-Pro-B Natriuret Pep 155 12/19/16 12/19/16 12/19/16 02:45 11:46 11:46 Creatine Kinase 38 CK-MB (CK-2) 0.42 0.63 Troponin I < 0.012 < 0.012 NT-Pro-B Natriuret Pep Impressions: Abdomen/Pelvis CT 12/18/16 00:00 IMPRESSION: NO SIGNIFICANT OR ACUTE FINDING IN THE ABDOMEN OR PELVIS ON CT SCAN WITH IV CONTRAST. Chest X-Ray 12/18/16 00:00 IMPRESSION: NO ACUTE CARDIOPULMONARY PROCESS. NO SIGNIFICANT CHANGE FROM PRIOR STUDY. Renal Ultrasound 12/20/16 00:00 IMPRESSION: No acute finding. Assessment & Plan - Diagnosis (1) Severe persistent asthma with (acute) exacerbation Is this a current diagnosis for this admission?: Yes (2) Bilateral lower extremity edema Is this a current diagnosis for this admission?: Yes (3) Type 2 diabetes mellitus Qualifiers: Diabetes mellitus complication status: with neurologic complications Diabetes mellitus complication detail: with polyneuropathy Diabetes mellitus terminal supervisor insulin use: without terminal supervisor use Qualified Code(s): E11.42 - Type 2 diabetes mellitus with diabetic polyneuropathy; Z79.4 - detention (current) use of insulin Is this a current diagnosis for this admission?: Yes (4) Abdominal distention Is this a current diagnosis for this admission?: Yes (5) Acute kidney injury Is this a current diagnosis for this admission?: YesPlan: Patient is improving on present treatment (6) Acute tubular necrosis Is this a current diagnosis for this admission?: Yes (8) Diabetes mellitus Qualifiers: Diabetes mellitus type: type 2 Diabetes mellitus complication status: with hyperglycemia Diabetes mellitus terminal supervisor insulin use: with terminal supervisor use Qualified Code(s): E11.65 - Type 2 diabetes mellitus with hyperglycemia; Z79.4 - detention (current) use of insulin Is this a current diagnosis for this admission?: Yes
[2016-12-22 22:23] LABS: ANION GAP 13 (5-19); BLOOD UREA NITROGEN 64 mg/dL (7-20); CALCIUM 8.4 mg/dL (8.4-10.2); CARBON DIOXIDE 20 mmol/L (22-30); CHLORIDE 108 mmol/L (98-107); CREATININE RESULT 2.07 mg/dL (0.52-1.25); GLUCOSE 359 mg/dL (75-110); POTASSIUM 4.7 mmol/L (3.6-5.0); SODIUM 141.3 mmol/L (137-145)
[2016-12-22] MEDS: INSULIN GLARGINE,HUM.REC.ANLOG 300 UNIT/3 ML INSULN.PEN SUBCUT SCH (23:17)
[2016-12-22] MEDS: SIMVASTATIN 40 MG TABLET PO SCH (23:17)
[2016-12-23 02:37] LABS: ANION GAP 12 (5-19); BLOOD UREA NITROGEN 65 mg/dL (7-20); CALCIUM 8.5 mg/dL (8.4-10.2); CARBON DIOXIDE 21 mmol/L (22-30); CHLORIDE 111 mmol/L (98-107); CREATININE RESULT 1.95 mg/dL (0.52-1.25); GLUCOSE 282 mg/dL (75-110); POTASSIUM 4.8 mmol/L (3.6-5.0); SODIUM 144.1 mmol/L (137-145)
[2016-12-23] MEDS: HEPARIN SOD (PORCINE) 5,000 UNIT/ML 1 ML SYRINGE SUBCUT SCH ×3 (05:43→22:54)
[2016-12-23] MEDS: METHYLPREDNISOLONE INJ 40 MG/1 ML SDV IV SCH ×3 (05:43→22:54)
[2016-12-23 07:09] LABS: ANION GAP 10 (5-19); BLOOD UREA NITROGEN 60 mg/dL (7-20); CALCIUM 8.9 mg/dL (8.4-10.2); CARBON DIOXIDE 22 mmol/L (22-30); CHLORIDE 113 mmol/L (98-107); GLUCOSE 230 mg/dL (75-110); POTASSIUM 4.9 mmol/L (3.6-5.0); SODIUM 145.4 mmol/L (137-145)
[2016-12-23] MEDS: INSULIN LISPRO 100 UNIT/ML 3 ML VIAL SUBCUT PRN ×4 (08:24→22:53)
[2016-12-23] MEDS: AMLODIPINE BESYLATE 10 MG TABLET PO SCH (08:25)
[2016-12-23] MEDS: METOPROLOL SUCCINATE 50 MG TAB.SR.24H PO SCH (08:25)
[2016-12-23] MEDS: LANSOPRAZOLE 30 MG TAB.RAP.DR PO SCH (08:26)
[2016-12-23] MEDS: VALSARTAN 160 MG TABLET PO SCH (08:28)
[2016-12-23] MEDS: PREGABALIN 75 MG CAPSULE PO SCH ×2 (08:30→22:53)
[2016-12-23] MEDS: BUDESONIDE/FORMOTEROL 160-4.5 MCG 60 PUFF/6 GM MDI IH SCH ×2 (08:30→22:52)
[2016-12-23] MEDS: HYDROCHLOROTHIAZIDE 25 MG TABLET PO SCH (09:00)
[2016-12-23 10:45] LABS: ANION GAP 12 (5-19); BLOOD UREA NITROGEN 54 mg/dL (7-20); CALCIUM 8.7 mg/dL (8.4-10.2); CARBON DIOXIDE 22 mmol/L (22-30); CHLORIDE 109 mmol/L (98-107); CREATININE RESULT 1.73 mg/dL (0.52-1.25); GLUCOSE 313 mg/dL (75-110); POTASSIUM 4.8 mmol/L (3.6-5.0); SODIUM 142.6 mmol/L (137-145)
[2016-12-23 14:39] LABS: ANION GAP 13 (5-19); BLOOD UREA NITROGEN 52 mg/dL (7-20); CALCIUM 9.1 mg/dL (8.4-10.2); CARBON DIOXIDE 21 mmol/L (22-30); CHLORIDE 111 mmol/L (98-107); CREATININE RESULT 1.63 mg/dL (0.52-1.25); GLUCOSE 268 mg/dL (75-110); POTASSIUM 4.9 mmol/L (3.6-5.0); SODIUM 144.9 mmol/L (137-145)
--- NOTE | 2016-12-23 15:31 | PDOC PROGRESS REPORT ---
Subjective Progress Note for:: 12/23/16 Subjective:: Patient was seen by the bedside, she is still wheezing on IV Solu-Medrol, kidney function is improving Physical Exam Vital Signs: Temp Pulse Resp BP Pulse Ox 98.3 F 71 24 H 121/78 95 12/23/16 12:11 12/23/16 12:11 12/23/16 12:11 12/23/16 12:11 12/23/16 12:11 Intake & Output 12/22/16 12/23/16 12/24/16 06:59 06:59 06:59 Intake Total 2184 4688 422 Output Total 300 1150 600 Balance 1884 3538 -178 Weight 101.8 kg 102.4 kg General appearance: PRESENT: mild distress Eye exam: PRESENT: PERRLA Respiratory exam: PRESENT: wheezes Cardiovascular exam: PRESENT: +S1, +S2 GI/Abdominal exam: PRESENT: soft Neurological exam: PRESENT: alert Results Laboratory Results: 12/19/16 18:40 12/23/16 14:00 12/22/16 12/22/16 12/23/16 18:00 21:55 01:55 Sodium 140.9 141.3 144.1 Potassium 4.9 4.7 4.8 Chloride 106 108 H 111 H Carbon Dioxide 21 L 20 L 21 L Anion Gap 14 13 12 BUN 66 H 64 H 65 H Creatinine 1.92 H 2.07 H 1.95 H Est GFR ( Amer) 32 L 29 L 31 L Est GFR (Non-Af Amer) 26 L 24 L 26 L Glucose 335 H 359 H 282 H Calcium 8.3 L 8.4 8.5 12/23/16 12/23/16 12/23/16 06:34 10:03 14:00 Sodium 145.4 H 142.6 144.9 Potassium 4.9 4.8 4.9 Chloride 113 H 109 H 111 H Carbon Dioxide 22 22 21 L Anion Gap 10 12 13 BUN 60 H 54 H 52 H Creatinine 1.80 H 1.73 H 1.63 H Est GFR ( Amer) 34 L 36 L 38 L Est GFR (Non-Af Amer) 28 L 29 L 32 L Glucose 230 H 313 H 268 H Calcium 8.9 8.7 9.1 12/18/16 12/18/16 12/19/16 18:45 18:45 02:45 Creatine Kinase 41 38 CK-MB (CK-2) 0.48 Troponin I < 0.012 NT-Pro-B Natriuret Pep 155 12/19/16 12/19/16 12/19/16 02:45 11:46 11:46 Creatine Kinase 38 CK-MB (CK-2) 0.42 0.63 Troponin I < 0.012 < 0.012 NT-Pro-B Natriuret Pep Impressions: Abdomen/Pelvis CT 12/18/16 00:00 IMPRESSION: NO SIGNIFICANT OR ACUTE FINDING IN THE ABDOMEN OR PELVIS ON CT SCAN WITH IV CONTRAST. Chest X-Ray 12/18/16 00:00 IMPRESSION: NO ACUTE CARDIOPULMONARY PROCESS. NO SIGNIFICANT CHANGE FROM PRIOR STUDY. Renal Ultrasound 12/20/16 00:00 IMPRESSION: No acute finding. 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 Is this a current diagnosis for this admission?: Yes (4) Abdominal distention Is this a current diagnosis for this admission?: Yes (5) Acute kidney injury Is this a current diagnosis for this admission?: Yes (6) Acute tubular necrosis Is this a current diagnosis for this admission?: Yes (8) Diabetes mellitus Qualifiers: Diabetes mellitus type: type 2 Diabetes mellitus complication status: with hyperglycemia Diabetes mellitus senior care insulin use: with buttermaker helper use Qualified Code(s): E11.65 - Type 2 diabetes mellitus with hyperglycemia; Z79.4 - [employer] (current) use of insulin Is this a current diagnosis for this admission?: Yes - Plan Summary Plan Summary: The acute kidney injury is improving, most recent serum creatinine is 1.6
[2016-12-23] MEDS: NORMAL SALINE 1000 ML 1,000 ML IV PRN (17:32)
[2016-12-23 19:06] LABS: ANION GAP 14 (5-19); BLOOD UREA NITROGEN 48 mg/dL (7-20); CALCIUM 9.1 mg/dL (8.4-10.2); CARBON DIOXIDE 21 mmol/L (22-30); CHLORIDE 111 mmol/L (98-107); CREATININE RESULT 1.58 mg/dL (0.52-1.25); GLUCOSE 245 mg/dL (75-110); POTASSIUM 5.3 mmol/L (3.6-5.0); SODIUM 145.5 mmol/L (137-145)
[2016-12-23] MEDS ORDERED: TOLTERODINE TARTRATE 1 MG TABLET PO SCH (22:00)
[2016-12-23] MEDS ORDERED: DULOXETINE HCL 30 MG CAPSULE.DR PO SCH (22:00)
[2016-12-23] MEDS ORDERED: TOPIRAMATE 100 MG TABLET PO SCH (22:00)
[2016-12-23 22:33] LABS: ANION GAP 10 (5-19); BLOOD UREA NITROGEN 45 mg/dL (7-20); CALCIUM 8.4 mg/dL (8.4-10.2); CARBON DIOXIDE 21 mmol/L (22-30); CHLORIDE 110 mmol/L (98-107); CREATININE RESULT 1.53 mg/dL (0.52-1.25); GLUCOSE 305 mg/dL (75-110); SODIUM 140.9 mmol/L (137-145)
[2016-12-23] MEDS: SIMVASTATIN 40 MG TABLET PO SCH (22:52)
[2016-12-23] MEDS: INSULIN GLARGINE,HUM.REC.ANLOG 300 UNIT/3 ML INSULN.PEN SUBCUT SCH (22:53)
[2016-12-24 02:38] LABS: ANION GAP 10 (5-19); BLOOD UREA NITROGEN 41 mg/dL (7-20); CALCIUM 8.7 mg/dL (8.4-10.2); CARBON DIOXIDE 20 mmol/L (22-30); CHLORIDE 113 mmol/L (98-107); CREATININE RESULT 1.36 mg/dL (0.52-1.25); GLUCOSE 230 mg/dL (75-110); SODIUM 143.1 mmol/L (137-145)
[2016-12-24] MEDS: METHYLPREDNISOLONE INJ 40 MG/1 ML SDV IV SCH ×2 (05:55→15:14)
[2016-12-24] MEDS: HEPARIN SOD (PORCINE) 5,000 UNIT/ML 1 ML SYRINGE SUBCUT SCH ×2 (05:55→15:14)
[2016-12-24] MEDS: NORMAL SALINE 1000 ML 1,000 ML IV PRN (05:55)
[2016-12-24 06:45] LABS: ANION GAP 11 (5-19); BLOOD UREA NITROGEN 40 mg/dL (7-20); CALCIUM 8.8 mg/dL (8.4-10.2); CARBON DIOXIDE 21 mmol/L (22-30); CHLORIDE 113 mmol/L (98-107); CREATININE RESULT 1.35 mg/dL (0.52-1.25); GLUCOSE 172 mg/dL (75-110); POTASSIUM 5.1 mmol/L (3.6-5.0); SODIUM 145.2 mmol/L (137-145)
[2016-12-24] MEDS: INSULIN LISPRO 100 UNIT/ML 3 ML VIAL SUBCUT PRN ×2 (08:57→16:49)
[2016-12-24] MEDS: VALSARTAN 160 MG TABLET PO SCH (08:57)
[2016-12-24] MEDS: AMLODIPINE BESYLATE 10 MG TABLET PO SCH (08:58)
[2016-12-24] MEDS: HYDROCHLOROTHIAZIDE 25 MG TABLET PO SCH (08:58)
[2016-12-24] MEDS: METOPROLOL SUCCINATE 50 MG TAB.SR.24H PO SCH (08:58)
[2016-12-24] MEDS: LANSOPRAZOLE 30 MG TAB.RAP.DR PO SCH (08:59)
[2016-12-24 10:57] LABS: ANION GAP 10 (5-19); BLOOD UREA NITROGEN 37 mg/dL (7-20); CALCIUM 8.7 mg/dL (8.4-10.2); CARBON DIOXIDE 21 mmol/L (22-30); CHLORIDE 112 mmol/L (98-107); CREATININE RESULT 1.35 mg/dL (0.52-1.25); GLUCOSE 209 mg/dL (75-110); POTASSIUM 5.2 mmol/L (3.6-5.0); SODIUM 142.6 mmol/L (137-145)
[2016-12-24] MEDS: PREGABALIN 75 MG CAPSULE PO SCH (13:30)
[2016-12-24] MEDS: BUDESONIDE/FORMOTEROL 160-4.5 MCG 60 PUFF/6 GM MDI IH SCH (13:30)
[2016-12-24 15:16] LABS: ANION GAP 10 (5-19); BLOOD UREA NITROGEN 35 mg/dL (7-20); CALCIUM 8.9 mg/dL (8.4-10.2); CARBON DIOXIDE 21 mmol/L (22-30); CHLORIDE 111 mmol/L (98-107); GLUCOSE 202 mg/dL (75-110); POTASSIUM 5.2 mmol/L (3.6-5.0); SODIUM 141.6 mmol/L (137-145)
[2016-12-24 15:31] LABS: CREATININE RESULT 1.26 mg/dL (0.52-1.25)
--- NOTE | 2016-12-24 18:42 | PDOC DISCHARGE SUMMARY ---
General - Admit/Disc Date/PCP Admission Date/Primary Care Provider: 12/19/16 02:28 ÓSCAR NORRIS MD Discharge Date: 12/24/16 - Discharge Diagnosis (1) Severe persistent asthma with (acute) exacerbation Is this a current diagnosis for this admission?: Yes (2) Bilateral lower extremity edema Is this a current diagnosis for this admission?: Yes (3) Type 2 diabetes mellitus Is this a current diagnosis for this admission?: Yes (4) Abdominal distention Is this a current diagnosis for this admission?: Yes (5) Acute kidney injury Is this a current diagnosis for this admission?: Yes (6) Acute tubular necrosis Is this a current diagnosis for this admission?: Yes (8) Diabetes mellitus Is this a current diagnosis for this admission?: Yes - Additional Information Home Medications: Albuterol Sulfate [Proair HFA] 2 puff IH Q4HP PRN 12/18/16 Amlodipine/Valsartan/Hcthiazid [Dsbuf-Nwowh-Admk 10-320-25 mg] 1 tab PO DAILY Budesonide/Formoterol Fumarate [Symbicort HFA 160-4.5 mcg Inhaler 6 gm] 2 puff IH Q12 12/18/16 Cholecalciferol (Vitamin D3) [Vitamin D3] 50,000 unit PO MO 12/18/16 Duloxetine HCl [Cymbalta] 60 mg PO DAILY 12/18/16 Insulin Glargine,Hum.rec.anlog [Lantus Solostar] 40 unit SQ QHS 12/18/16 Isosorb Dinit/Hydralazine HCl [Bidil 20-37.5 mg Tablet] 1 tab PO Q8 12/18/16 Metformin HCl [Glucophage] 500 mg PO TID 12/18/16 Metoprolol Succinate [Toprol Xl 50 mg Tab.sr] 50 mg PO DAILY 12/18/16 Pioglitazone HCl [Actos 15 mg Tablet] 15 mg PO DAILY 12/18/16 Simvastatin [Zocor 40 mg Tablet] 40 mg PO QHS 12/18/16 Solifenacin Succinate [Vesicare] 10 mg PO DAILY 12/18/16 Topiramate [Topamax] 200 mg PO Q12 12/18/16 Pregabalin [Lyrica 75 mg Capsule] 75 mg PO Q12 #60 12/24/16 History of Present Illness History of Present Illness: IAN FOSTER is a 66 year old female she came to the office as same day urgent visit,, with many complaints including abdominal distention, shortness of breath, wheezing in the office she was evaluated she was found to have lower extremity edema abdominal distention on percussion of the abdomen there was a suggestion that there was shifting dullness that was suggestive of ascites, because of all of the concern she was admitted directly into the hospital for evaluation. The BMP was normal, these virtually rule out CHF. CAT scan of the abdomen and pelvis without contrast was done and there was no evidence of ascites or any intra-abdominal pathology she has a history of severe persistent asthma with episodes of exacerbation sometime frequently patient was very reluctant to be admitted to the hospital, clinically the differential diagnosis included, CHF, right heart failure, abdominal distention probably due to weight Hospital Course Hospital Course: Patient was admitted because of concern for CHF, she had abdominal distention and also severe persistent asthma with acute exacerbation. A CAT scan of the abdomen and pelvis was done because of the distended abdomen, the CAT scan was negative but she developed acute tubular necrosis due to combination of contrast and low blood pressure. When she was admitted she had lower extremity edema, she was treated with IV furosemide infusion and she subsequently developed low blood pressure, combination of low blood pressure and the contrast is etiology of the acute tubular necrosis and acute kidney injury., 2D echo was done, it showed normal ejection fraction of left ventricle, there is mild concentric left ventricular hypertrophy with grade 2 diastolic dysfunction of the left ventricle there is trace mitral valve regurgitation. Ultrasound of the kidney was done because of acute kidney injury, it was normal. She had severe hyperkalemia, this was treated with calcium gluconate, Kayexalate and insulin. She was treated with IV Solu-Medrol because of acute exacerbation of asthma, on admission she had very vivid loud wheezing, this was controlled with Solu-Medrol successfully and bronchodilators. Physical Exam Vital Signs: Temp Pulse Resp BP Pulse Ox 98.2 F 69 20 174/70 H 96 12/24/16 15:37 12/24/16 15:37 12/24/16 15:37 12/24/16 15:37 12/24/16 15:37 Intake & Output 12/23/16 12/24/16 12/25/16 06:59 06:59 06:59 Intake Total 6898 3972 777 Output Total 8170 7660 5860 Balance 7701 1422 -3440 Weight 102.4 kg 102.5 kg General appearance: PRESENT: no acute distress, well-developed, well-nourished Head exam: PRESENT: atraumatic, normocephalic Eye exam: PRESENT: conjunctiva pink, EOMI, PERRLA. ABSENT: scleral icterus Ear exam: PRESENT: normal external ear exam Mouth exam: PRESENT: moist, tongue midline Neck exam: PRESENT: full ROM. ABSENT: carotid bruit, JVD, lymphadenopathy, thyromegaly Respiratory exam: PRESENT: clear to auscultation leroy Cardiovascular exam: PRESENT: RRR, +S1, +S2. ABSENT: diastolic murmur, rubs, systolic murmur Pulses: PRESENT: normal dorsalis pedis pul, +2 pedal pulses bilateral Vascular exam: PRESENT: normal capillary refill GI/Abdominal exam: PRESENT: normal bowel sounds, soft Rectal exam: PRESENT: deferred Neurological exam: PRESENT: alert, awake, oriented to person, oriented to place , oriented to time, oriented to situation, CN II-XII grossly intact Psychiatric exam: PRESENT: appropriate affect, normal mood Skin exam: PRESENT: dry, intact, warm Results Laboratory Results: 12/19/16 18:40 12/24/16 14:18 12/23/16 12/23/16 12/24/16 17:55 21:49 01:50 Sodium 145.5 H 140.9 143.1 Potassium 5.3 H 5.0 5.0 Chloride 111 H 110 H 113 H Carbon Dioxide 21 L 21 L 20 L Anion Gap 14 10 10 BUN 48 H 45 H 41 H Creatinine 1.58 H 1.53 H 1.36 H Est GFR ( Amer) 40 L 41 L 47 L Est GFR (Non-Af Amer) 33 L 34 L 39 L Glucose 245 H 305 H 230 H Calcium 9.1 8.4 8.7 12/24/16 12/24/16 12/24/16 06:09 10:14 14:18 Sodium 145.2 H 142.6 141.6 Potassium 5.1 H 5.2 H 5.2 H Chloride 113 H 112 H 111 H Carbon Dioxide 21 L 21 L 21 L Anion Gap 11 10 10 BUN 40 H 37 H 35 H Creatinine 1.35 H 1.35 H 1.26 H Est GFR ( Amer) 47 L 47 L 51 L Est GFR (Non-Af Amer) 39 L 39 L 42 L Glucose 172 H 209 H 202 H Calcium 8.8 8.7 8.9 12/18/16 12/18/16 12/19/16 18:45 18:45 02:45 Creatine Kinase 41 38 CK-MB (CK-2) 0.48 Troponin I < 0.012 NT-Pro-B Natriuret Pep 155 12/19/16 12/19/16 12/19/16 02:45 11:46 11:46 Creatine Kinase 38 CK-MB (CK-2) 0.42 0.63 Troponin I < 0.012 < 0.012 NT-Pro-B Natriuret Pep Impressions: Abdomen/Pelvis CT 12/18/16 00:00 IMPRESSION: NO SIGNIFICANT OR ACUTE FINDING IN THE ABDOMEN OR PELVIS ON CT SCAN WITH IV CONTRAST. Chest X-Ray 12/18/16 00:00 IMPRESSION: NO ACUTE CARDIOPULMONARY PROCESS. NO SIGNIFICANT CHANGE FROM PRIOR STUDY. Renal Ultrasound 12/20/16 00:00 IMPRESSION: No acute finding.
[2016-12-24 19:35] VITALS: BP 175/77
== END 2016-12-24 20:09 | disposition home or self-care (01) | DRG 202 ==
LOC: INTOOBSV 17:25 → 3S 17:25 → OBSVTOIN 12-19 02:28 → INTOOBSV 12-20 18:00 → OBSVTOIN 12-20 18:00
PROVIDERS: ADMIT Internal Medicine; ATTEND Internal Medicine
DX: J45.51 Severe persistent asthma with (acute) exacerbation (principal); N17.0 Acute kidney failure with tubular necrosis; R14.0 Abdominal distension (gaseous); F32.9 Major depressive disorder, single episode, unspecified; I10 Essential (primary) hypertension; E11.42 Type 2 diabetes mellitus with diabetic polyneuropathy; E87.5 Hyperkalemia; R60.9 Edema, unspecified; Z79.84 Long term (current) use of oral hypoglycemic drugs; Z79.4 Long term (current) use of insulin; Z79.51 Long term (current) use of inhaled steroids; Z79.899 Other long term (current) drug therapy
CPT/HCPCS: 36415; 71020; 74177; 76770; 80048; 80053; 80076; 81001; 82550; 82553; 82565; 82570; 82962; 83036; 83880; 84156; 84439; 84443; 84484; 85027; 85379; 85610; 85730; 93005; 93010; 93306; 94640; G0378; G0379; J0610; J1644; J1815; J1940; J2920; J2930; J3490; J7030; J7050; J7620; S0119

== ENCOUNTER → 2017-04-09 | Outpatient (CLI) | payer MEDICARE, MEDICAID ==
--- NOTE | 2017-04-10 14:01 | RADIOLOGY REPORT (SQ) ---
EXAM DESCRIPTION: CT CHEST WITHOUT COMPLETED DATE/TIME: 04/09/2017 1:27 pm REASON FOR STUDY: PULMONARY INFILTRATE (R91.8) R91.8 OTHER NONSPECIFIC ABNORMAL FINDING OF LUNG FIE LD COMPARISON: Barium swallow 09/16/2016 CT abdomen pelvis 12/18/2016 Two-view chest 06/12/2014, 12/18/2016 TECHNIQUE: CT scan performed of the chest without intravenous contrast. Images reviewed with lung, soft tissue and bone windows. Reconstructed coronal and sagittal MPR images reviewed. All images st ored on PACS. All CT scanners at this facility use dose modulation, iterative reconstruction, and/or weight based d osing when appropriate to reduce radiation dose to as low as reasonably achievable (ALARA). [facility]: Dose Right [facility]: CareDose [facility]: Dose Right [facility]: Teradose 4D [facility]: Smart SuppreMol RADIATION DOSE: Up-to-date CT equipment and radiation dose reduction techniques were employed. CTDIv ol: 18.1 mGy. DLP: 658 mGy-cm. mGy. LIMITATIONS: No technical limitations. FINDINGS: LUNGS AND PLEURA: Bandlike atelectasis in the posterior right lower lobe coronal image 86, sagittal image 28, and axial image 72. No fluffy alveolar infiltrates worrisome for edema or pneumonia. No pleural effusions. No pneumotho rax. No pulmonary nodules. Airways are patent. HILAR AND MEDIASTINAL STRUCTURES: No identified masses or abnormal nodes. No obvious aneurysm. HEART AND VASCULAR STRUCTURES: Mild cardiomegaly. Minimal aortic valve calcification. UPPER ABDOMEN: No significant findings. Limited exam. THYROID AND OTHER SOFT TISSUES: No masses. No adenopathy. BONES: No significant finding. HARDWARE: None in the chest. OTHER: No other significant findings. IMPRESSION: Bandlike atelectasis right posterior lung base. TECHNICAL DOCUMENTATION: JOB ID: [id number] Quality ID # [id number]: Final reports with documentation of one or more dose reduction techniques (e.g., Au tomated exposure control, adjustment of the mA and/or kV according to patient size, use of iterative reconstruction technique) 2010 [employer]- All Rights Reserved
== END ==
LOC: RAD 12:58
PROVIDERS: ATTEND Internal Medicine Critical Care Medicine
DX: R91.8 Other nonspecific abnormal finding of lung field (principal)
CPT/HCPCS: 71250

== ENCOUNTER 2017-07-29 16:38 | Emergency (ER) | payer MEDICARE, MEDICAID ==
--- NOTE | 2017-07-29 16:58 | ER Document Report ---
ED General - General Chief Complaint: Abnormal Lab Results Stated Complaint: ABNORMAL LABS Time Seen by Provider: 07/29/17 16:56 Notes: 66-year-old female with chronic kidney disease presents from [facility] for hyperkalemia. She states she feels like she is drunk or hung over but she did not drink last night. She just feels generally weak and dizzy. She has chronic kidney disease and has been discussing future dialysis with Dr. Nick from [facility]. She states that yesterday she ate a big spinach salad. She denies urinary symptoms new back pain fever chills palpitations or dizziness. TRAVEL OUTSIDE OF THE [place] IN LAST 30 DAYS: No - Related Data Allergies/Adverse Reactions: No Known Allergies Allergy (Verified 04/25/13 18:46) Past Medical History - Social History Smoking Status: Never Smoker Family History: Reviewed & Not Pertinent - Past Medical History Cardiac Medical History: Reports: Hx Hypertension Pulmonary Medical History: Reports: Hx Asthma Endocrine Medical History: Reports: Hx Diabetes Mellitus Type 2 Psychiatric Medical History: Reports: Hx Depression Past Surgical History: Reports: Hx Tubal Ligation - Immunizations Hx Diphtheria, Pertussis, Tetanus Vaccination: Yes Hx Pneumococcal Vaccination: 06/16/14 Review of Systems - Review of Systems Notes: REVIEW OF SYSTEMS GEN: Weakness dizziness "like hangover" ENT: Denies sore throat, nasal discharge, ear pain EYES: Denies blurry vision, eye pain, discharge CV: Denies chest pain, palpitations, edema RESP: Denies cough, shortness of breath, wheezing GI: Denies abdominal pain, nausea, vomiting, diarrhea MSK: Denies joint pain/swelling, edema, SKIN: Denies rash, skin lesions LYMPH: Denies swollen glands/lymph nodes NEURO: Denies headache, focal weakness or numbness, dizziness PSYCH: Denies depression, suicidal or homicidal ideation PHYSICAL EXAMINATION General: No acute distress, well-nourished Head: Atraumatic, normocephalic ENT: Mouth normal, oropharynx moist, no exudates or tonsillar enlargement Eyes: Conjunctiva normal, pupils equal, lids normal Neck: No JVD, supple, no guarding CVS: Normal rate, regular rhythm, no murmurs Resp: No resp distress, equal and normal breath sounds bilaterally GI: Centripetal obesity, pronounced. Nondistended, soft, no tenderness to palpation, no rebound or guarding Ext: No deformities, no edema, normal range of motion in upper and lower ext Back: No CVA or midline TTP Skin: No rash, warm Lymphatic: No lymphadeopathy noted Neuro: Awake, alert. Face symmetric. GCS 15. Physical Exam - Vital signs Vitals: Temp Pulse Resp BP Pulse Ox 98.4 F 76 16 147/62 H 91 L 07/29/17 16:43 12 16:43 07/29/17 16:43 07/29/17 16:43 07/29/17 16:43 Course - Re-evaluation Re-evalutation: 07/29/17 17:06 66-year-old female with chronic kidney disease presents with nonspecific symptoms in the setting of hyperkalemia. Reviewing her chart her potassium usually sits around 5. Today it was 6.4. She looks well. I will get an EKG, recheck her potassium, and communicate with her kidney doctor. 07/29/17 18:08 Patient's potassium is 6.1 which is down from earlier today and not associated with EKG changes. Patient was given Kayexalate and albuterol in the ED. I anticipate further trending down and will not keep her for a repeat potassium but rather have her follow-up tomorrow for a lab draw. Sandoval who suggested this plan and agrees with it. Patient is okay with it as well. Reinforced renal diet and prescribed 3 days of Kayexalate. I think this is a transient elevation secondary to dietary indiscretion and slightly increased creatinine but there is no indication of acute on chronic renal failure. I have discussed with the patient there likely diagnosis, aftercare plan, follow-up plans and my usual and customary return precautions. They verbalized understanding of this. - Vital Signs Vital signs: Temp Pulse Resp BP Pulse Ox 98.4 F 76 16 147/62 H 91 L 07/29/17 16:43 07/29/17 16:43 07/29/17 16:43 07/29/17 16:43 07/29/17 16:43 - Laboratory Result Diagrams: 07/29/17 17:30 07/29/17 17:30 Laboratory results interpreted by me: 07/29/17 07/29/17 17:30 17:30 Hgb 10.9 L Hct 33.9 L RDW 15.4 H Eosinophils % 10.4 H Sodium 145.1 H Potassium 6.1 H* Chloride 108 H BUN 34 H Creatinine 1.58 H Est GFR ( Amer) 40 L Est GFR (Non-Af Amer) 33 L Glucose 162 H - EKG Interpretation by Me EKG shows normal: Sinus rhythm Rate: Normal Rhythm: NSR Lorman/QRS: LBBB When compared to previous EKG there are: No significant change - Unchanged from prior, no T-wave peaking or other changes consistent with hyperkalemia Discharge - Discharge Clinical Impression: Hyperkalemia, Hyperkalemia, diminished renal excretion Condition: Good Disposition: HOME, SELF-CARE Instructions: Kidney Failure ([facility]) Additional Instructions: Please follow-up with Dr. Nick's office on Wednesday. Please take the medication I have prescribed in the next 2 days, keep well hydrated, and do not eat avocados, spinach, bananas, or other foods that are high in potassium. Prescriptions: Sodium Polystyrene Sulfonate [Kayexalate 15 Gm/60 Ml Susp 60 Ml] 15 gm PO DAILY #100 ml
[2017-07-29] MEDS ORDERED: ALBUTEROL SULFATE 0.083% NEB 2.5 MG/3 ML AMPUL NEB ONE (17:13)
[2017-07-29] MEDS ORDERED: SODIUM POLYSTYRENE SULFONATE 15 GM/60 ML PO ONE (17:13)
[2017-07-29 17:47] LABS: ABSOLUTE BASOPHILS # (AUTO) 0.1 10^3/uL (0.0-0.2); ABSOLUTE EOSINOPHILS # (AUTO) 0.6 10^3/uL (0.0-0.6); ABSOLUTE LYMPHOCYTES (AUTO) 1.5 10^3/uL (0.5-4.7); ABSOLUTE MONOCYTES (AUTO) 0.5 10^3/uL (0.1-1.4); ABSOLUTE NEUT (AUTO) 3.3 10^3/uL (1.7-8.2); BASOPHILS % (AUTO) 1.2 % (0-2); EOSINOPHILS % (AUTO) 10.4 % (0-6); HEMATOCRIT 33.9 % (36.0-47.0); HEMOGLOBIN 10.9 g/dL (12.0-15.5); HGB HCT DIFFERENCE -1.2; LYMPHOCYTES % (AUTO) 24.9 % (13-45); MEAN CORPUSCULAR HGB CONC 32.3 g/dL (32.0-36.0); MEAN CORPUSCULAR VOLUME 87 fl (80-97); MONOCYTES % (AUTO) 8.4 % (3-13); RED CELL DISTRIBUTION WIDTH 15.4 % (11.5-14.0); SEGMENTED NEUTROPHILS % (AUTO) 55.1 % (42-78); WHITE BLOOD COUNT 6.1 10^3/uL (4.0-10.5)
[2017-07-29 18:04] LABS: ANION GAP 12 (5-19); BLOOD UREA NITROGEN 34 mg/dL (7-20); CALCIUM 9.3 mg/dL (8.4-10.2); CARBON DIOXIDE 25 mmol/L (22-30); CHLORIDE 108 mmol/L (98-107); CREATININE RESULT 1.58 mg/dL (0.52-1.25); GLUCOSE 162 mg/dL (75-110); SODIUM 145.1 mmol/L (137-145)
[2017-07-29 18:08] LABS: POTASSIUM 6.1 mmol/L (3.6-5.0)
[2017-07-29 19:18] VITALS: BP 157/75
--- NOTE | 2017-07-29 20:41 | EKG REPORT ---
SEVERITY:- ABNORMAL ECG - SINUS RHYTHM LEFT BUNDLE BRANCH BLOCK : Confirmed by: Damian Rainey 29-Jul-2017 20:40:26
== END 2017-07-29 19:20 | disposition home or self-care (01) ==
LOC: ER 16:38
DX: E87.5 Hyperkalemia (principal); I12.9 Hypertensive chronic kidney disease with stage 1 through stage 4 chronic kidney disease, or unspecified chronic kidney disease; E11.22 Type 2 diabetes mellitus with diabetic chronic kidney disease; N18.9 Chronic kidney disease, unspecified; R53.1 Weakness; R42 Dizziness and giddiness; I44.7 Left bundle-branch block, unspecified
CPT/HCPCS: 93005; 94640; 99284; 36415; 85025; 80048; 93010; A9270

== ENCOUNTER → 2017-07-29 | Outpatient (CLI) | payer MEDICARE, MEDICAID ==
[2017-07-29 14:09] LABS: ABSOLUTE BASOPHILS # (AUTO) 0.1 10^3/uL (0.0-0.2); ABSOLUTE EOSINOPHILS # (AUTO) 0.5 10^3/uL (0.0-0.6); ABSOLUTE MONOCYTES (AUTO) 0.4 10^3/uL (0.1-1.4); ABSOLUTE NEUT (AUTO) 2.8 10^3/uL (1.7-8.2); BASOPHILS % (AUTO) 1.1 % (0-2); EOSINOPHILS % (AUTO) 11.2 % (0-6); HEMATOCRIT 34.3 % (36.0-47.0); HEMOGLOBIN 11.4 g/dL (12.0-15.5); HGB HCT DIFFERENCE -0.1; LYMPHOCYTES % (AUTO) 21.9 % (13-45); MEAN CORPUSCULAR HEMOGLOBIN 28.3 pg (27.0-33.4); MEAN CORPUSCULAR HGB CONC 33.1 g/dL (32.0-36.0); MEAN CORPUSCULAR VOLUME 86 fl (80-97); MONOCYTES % (AUTO) 8.3 % (3-13); RED BLOOD COUNT 4.01 10^6/uL (3.72-5.28); RED CELL DISTRIBUTION WIDTH 15.5 % (11.5-14.0); SEGMENTED NEUTROPHILS % (AUTO) 57.5 % (42-78); WHITE BLOOD COUNT 4.8 10^3/uL (4.0-10.5)
[2017-07-29 14:22] LABS: APPEARANCE,URINE CLEAR; BILIRUBIN,URINE NEGATIVE (NEGATIVE); GLUCOSE, URINE NEGATIVE (NEGATIVE); KETONES,URINE NEGATIVE (NEGATIVE); LEUKOCYTE ESTERASE,URINE TRACE (NEGATIVE); NITRITE,URINE NEGATIVE (NEGATIVE); PROTEIN,URINE 100 mg/dL (NEGATIVE); URINE SPECIFIC GRAVITY 1.011; UROBILINOGEN,URINE NEGATIVE mg/dL (<2.0)
[2017-07-29 14:35] LABS: ALANINE AMINOTRANSFERASE 25 U/L (9-52); ALBUMIN 4.1 g/dL (3.5-5.0); ALKALINE PHOSPHATASE 97 U/L (38-126); ANION GAP 11 (5-19); ASPARTATE AMINO TRANSFERASE 14 U/L (14-36); BILIRUBIN,DIRECT 0.4 mg/dL (0.0-0.4); BILIRUBIN,TOTAL 0.8 mg/dL (0.2-1.3); BLOOD UREA NITROGEN 32 mg/dL (7-20); CALCIUM 9.4 mg/dL (8.4-10.2); CARBON DIOXIDE 27 mmol/L (22-30); CHLORIDE 106 mmol/L (98-107); CREATININE RESULT 1.54 mg/dL (0.52-1.25); GLUCOSE 103 mg/dL (75-110); MAGNESIUM 2.7 mg/dL (1.6-2.3); SODIUM 143.9 mmol/L (137-145); TOTAL PROTEIN 7.4 g/dL (6.3-8.2)
[2017-07-29 15:32] LABS: POTASSIUM 6.4 mmol/L (3.6-5.0)
[2017-07-30 06:38] LABS: HEPATITIS C VIRUS AB <0.1 s/co ratio (0.0-0.9)
== END ==
LOC: OD 12:14
PROVIDERS: ATTEND Internal Medicine Nephrology
DX: I12.9 Hypertensive chronic kidney disease with stage 1 through stage 4 chronic kidney disease, or unspecified chronic kidney disease (principal); N18.3 Chronic kidney disease, stage 3 (moderate); D64.9 Anemia, unspecified
CPT/HCPCS: 36415; 80053; 81001; 82607; 82728; 83540; 83550; 83735; 84165; 84443; 85025; 86803; 86804; 87340

== ENCOUNTER → 2017-08-09 | Outpatient (CLI) | payer MEDICARE, MEDICAID | LOC: OD 13:45 | PROVIDERS: ATTEND Internal Medicine Nephrology | DX: E78.5 Hyperlipidemia, unspecified (principal) | CPT/HCPCS: 36415; 84132 ==

== ENCOUNTER → 2017-09-07 | Outpatient (CLI) | payer MEDICARE, MEDICAID ==
[2017-09-07 17:18] LABS: HEMATOCRIT 32.2 % (36.0-47.0); HEMOGLOBIN 10.6 g/dL (12.0-15.5); MEAN CORPUSCULAR HEMOGLOBIN 28.5 pg (27.0-33.4); MEAN CORPUSCULAR VOLUME 86 fl (80-97); PLATELET COUNT 342 10^3/uL (150-450); RED BLOOD COUNT 3.73 10^6/uL (3.72-5.28); RED CELL DISTRIBUTION WIDTH 15.8 % (11.5-14.0); WHITE BLOOD COUNT 6.3 10^3/uL (4.0-10.5)
[2017-09-07 17:45] LABS: ANION GAP 11 (5-19); BLOOD UREA NITROGEN 42 mg/dL (7-20); CALCIUM 9.3 mg/dL (8.4-10.2); CARBON DIOXIDE 24 mmol/L (22-30); CHLORIDE 108 mmol/L (98-107); GLUCOSE 114 mg/dL (75-110); POTASSIUM 5.3 mmol/L (3.6-5.0); SODIUM 142.8 mmol/L (137-145)
== END ==
LOC: OD 16:41
PROVIDERS: ATTEND Internal Medicine Nephrology
DX: N18.3 Chronic kidney disease, stage 3 (moderate) (principal); E87.5 Hyperkalemia; D64.9 Anemia, unspecified; R80.9 Proteinuria, unspecified
CPT/HCPCS: 36415; 80048; 85027

== ENCOUNTER → 2017-10-15 | Outpatient (CLI) | payer MEDICARE, MEDICAID ==
[2017-10-15 11:04] LABS: HEMATOCRIT 33.9 % (36.0-47.0); HEMOGLOBIN 11.2 g/dL (12.0-15.5); MEAN CORPUSCULAR HEMOGLOBIN 28.6 pg (27.0-33.4); MEAN CORPUSCULAR VOLUME 87 fl (80-97); PLATELET COUNT 420 10^3/uL (150-450); RED BLOOD COUNT 3.91 10^6/uL (3.72-5.28); RED CELL DISTRIBUTION WIDTH 15.4 % (11.5-14.0); WHITE BLOOD COUNT 5.8 10^3/uL (4.0-10.5)
[2017-10-15 11:11] LABS: APPEARANCE,URINE SLIGHTLY-CLOUDY; BILIRUBIN,URINE NEGATIVE (NEGATIVE); COLOR,URINE YELLOW; GLUCOSE, URINE NEGATIVE (NEGATIVE); KETONES,URINE NEGATIVE (NEGATIVE); LEUKOCYTE ESTERASE,URINE TRACE (NEGATIVE); NITRITE,URINE NEGATIVE (NEGATIVE); PROTEIN,URINE 100 mg/dL (NEGATIVE); URINE SPECIFIC GRAVITY 1.012; UROBILINOGEN,URINE NEGATIVE mg/dL (<2.0)
[2017-10-15 11:23] LABS: ANION GAP 12 (5-19); BLOOD UREA NITROGEN 34 mg/dL (7-20); CALCIUM 9.4 mg/dL (8.4-10.2); CARBON DIOXIDE 25 mmol/L (22-30); CHLORIDE 110 mmol/L (98-107); GLUCOSE 110 mg/dL (75-110); POTASSIUM 4.8 mmol/L (3.6-5.0); SODIUM 147.3 mmol/L (137-145)
[2017-10-15 11:27] LABS: UR PRO/CREAT RATIO RESULT 1.2 mg/mg (0.0-0.2); URINE CREATININE 104.1 mg/dL (15-278); URINE PROTEIN 121.3 mg/dL (<12)
== END ==
LOC: OD 10:00
PROVIDERS: ATTEND Internal Medicine Nephrology
DX: N18.3 Chronic kidney disease, stage 3 (moderate) (principal); E87.5 Hyperkalemia; E11.9 Type 2 diabetes mellitus without complications; R80.9 Proteinuria, unspecified
CPT/HCPCS: 36415; 80048; 81001; 82570; 82728; 83540; 83550; 84156; 85027

== ENCOUNTER 2017-11-09 12:52 | Outpatient (CLI) | payer MEDICARE, MEDICAID ==
[2017-11-09] MEDS ORDERED: FERUMOXYTOL (NON-ESRD) 510 MG/NS 100 ML IV PRN ×2 (13:18)
[2017-11-09 13:34] VITALS: BP 129/58
== END 2017-11-09 15:09 | disposition home or self-care (01) ==
LOC: II 12:52
PROVIDERS: ATTEND Internal Medicine Nephrology
PROC: 3E033GC Introduction of Other Therapeutic Substance into Peripheral Vein, Percutaneous Approach (ICD-10-PCS; principal; 2017-11-09)
DX: D50.8 Other iron deficiency anemias (principal); N18.9 Chronic kidney disease, unspecified
CPT/HCPCS: 96365; Q0138

== ENCOUNTER 2017-11-23 12:52 | Outpatient (CLI) | payer MEDICARE, MEDICAID ==
[~2017-11-23 12:52] MED LIST: FERUMOXYTOL (ESRD) 510 MG/NS 100 ML IV PRN
[2017-11-23 15:25] VITALS: BP 151/64
== END 2017-11-23 15:34 | disposition home or self-care (01) ==
LOC: II 12:52 → 5TH 14:39 → II 15:34
PROVIDERS: ATTEND Internal Medicine Nephrology
PROC: 3E033GC Introduction of Other Therapeutic Substance into Peripheral Vein, Percutaneous Approach (ICD-10-PCS; principal; 2017-11-23)
DX: D50.8 Other iron deficiency anemias (principal); N18.9 Chronic kidney disease, unspecified
CPT/HCPCS: 96367; Q0139; 96365

== ENCOUNTER 2017-12-17 13:03 | Inpatient (IN) | payer MEDICARE, MEDICAID ==
[2017-12-17 14:48] LABS: HEMATOCRIT 35.4 % (36.0-47.0); HEMOGLOBIN 11.6 g/dL (12.0-15.5); MEAN CORPUSCULAR HEMOGLOBIN 29.4 pg (27.0-33.4); MEAN CORPUSCULAR HGB CONC 32.9 g/dL (32.0-36.0); MEAN CORPUSCULAR VOLUME 90 fl (80-97); PLATELET COUNT 323 10^3/uL (150-450); RED BLOOD COUNT 3.95 10^6/uL (3.72-5.28); RED CELL DISTRIBUTION WIDTH 16.4 % (11.5-14.0); WHITE BLOOD COUNT 5.4 10^3/uL (4.0-10.5)
[2017-12-17 15:03] LABS: ALANINE AMINOTRANSFERASE 28 U/L (9-52); ALKALINE PHOSPHATASE 94 U/L (38-126); ANION GAP 13 (5-19); ASPARTATE AMINO TRANSFERASE 16 U/L (14-36); BILIRUBIN,DIRECT 0.3 mg/dL (0.0-0.4); BILIRUBIN,TOTAL 0.7 mg/dL (0.2-1.3); BLOOD UREA NITROGEN 36 mg/dL (7-20); CALCIUM 9.6 mg/dL (8.4-10.2); CARBON DIOXIDE 26 mmol/L (22-30); CHLORIDE 106 mmol/L (98-107); GLUCOSE 125 mg/dL (75-110); SODIUM 145.2 mmol/L (137-145); TOTAL PROTEIN 7.5 g/dL (6.3-8.2)
[2017-12-17 15:29] LABS: CREATINE KINASE MB 0.63 ng/mL (<4.55); TROPONIN I 0.105 ng/mL
[2017-12-17] MEDS ORDERED: GENTAMICIN SULFATE 0.3% OPH OINT 3.5 GM OS ONE (16:00)
[2017-12-17] MEDS ORDERED: CLOPIDOGREL BISULFATE 300 MG TABLET PO ONE (16:00)
[2017-12-17] MEDS ORDERED: ALBUTEROL SULFATE HFA (90 MCG/PUFF) 8 GM MDI (1 MDI/ER DISP) IH PRN (17:40)
[2017-12-17] MEDS ORDERED: DEXTROSE 40% GEL 15 GM TUBE PO PRN (18:10)
[2017-12-17] MEDS ORDERED: DEXTROSE 40% GEL 15 GM TUBE X 2 PO PRN (18:10)
[2017-12-17] MEDS ORDERED: GLUCAGON,HUMAN RECOMB 1 MG INJ IM PRN (18:10)
[2017-12-17] MEDS ORDERED: DEXTROSE 50%-WATER SYRINGE 25 GM/50 ML DOSE IV PRN (18:10)
[2017-12-17] MEDS ORDERED: DEXTROSE 50%-WATER SYRINGE 12.5 GM/25 ML DOSE IV PRN (18:10)
--- NOTE | 2017-12-17 18:21 | EKG REPORT ---
SEVERITY:- ABNORMAL ECG - SINUS RHYTHM LEFT BUNDLE BRANCH BLOCK : Confirmed by: Myles Styles MD 17-Dec-2017 18:20:30
[2017-12-17] MEDS: ENOXAPARIN SODIUM INJ 100 MG/1 ML DISP.SYRIN SUBCUT SCH (18:42)
[2017-12-17] MEDS: METFORMIN HCL 500 MG TABLET PO SCH (18:43)
--- NOTE | 2017-12-17 18:57 | RADIOLOGY REPORT (SQ) ---
EXAM DESCRIPTION: CHEST 2 VIEWS COMPLETED DATE/TIME: 12/17/2017 6:39 pm REASON FOR STUDY: shortness of breath COMPARISON: 12/18/2016 EXAM PARAMETERS: NUMBER OF VIEWS: two views TECHNIQUE: Digital Frontal and Lateral radiographic views of the chest acquired. RADIATION DOSE: NA LIMITATIONS: none FINDINGS: LUNGS AND PLEURA: No opacities, masses or pneumothorax. No pleural effusion. MEDIASTINUM AND HILAR STRUCTURES: No masses or contour abnormalities. HEART AND VASCULAR STRUCTURES: Cardiac silhouette is enlarged. There is no evidence of failure. BONES: No acute findings. HARDWARE: None in the chest. OTHER: No other significant finding. IMPRESSION: Cardiomegaly without CHF. TECHNICAL DOCUMENTATION: JOB ID: [id number] [employer]- All Rights Reserved Reading location - IP/workstation name: [email or web address]
[2017-12-17] MEDS ORDERED: DULOXETINE HCL 30 MG CAPSULE.DR PO ONE (19:00)
[2017-12-17] MEDS ORDERED: LANSOPRAZOLE 30 MG TAB.RAP.DR PO ONE (19:00)
--- NOTE | 2017-12-17 19:36 | XCELERA REPORT ---
[address] [address] Transthoracic Echocardiogram Report Name: IAN FOSTER I Age: 67 yrs Gender: Female : 1950 Patient Status: Inpatient Patient Location: [address] [place] [address] Study Date: 12/17/2017 03:00 PM Height: 62 in Weight: 210 lb BSA: 2.0 m2 Procedure: A complete two-dimensional transthoracic echocardiogram was performed (2D, M-mode, spectral and color flow Doppler). The study was technically difficult with many images being suboptimal in quality. Reason For Study: chest pain Ordering Physician: ÓSCAR NORRIS Performed By: Can Martinez Interpretation Summary The Ejection Fraction estimate is 50-55% Left ventricular systolic function is borderline reduced. Doppler measurements suggest pseudonormalized left ventricular relaxation, which is associated with grade II/IV or mild to moderate diastolic dysfunction Wall motion cannot be accurately commented on, but no definite regional wall motion abnormalities noted. There is mild to moderate concentric left ventricular hypertrophy. The left ventricle is grossly normal size. The right ventricular systolic function is normal. The left atrium is borderline dilated. The right atrium is normal. There is a mild amount of mitral regurgitation There is no mitral valve stenosis. No aortic regurgitation is present. There is no aortic valve stenosis There is a trace or physiologic amount of tricuspid regurgitation Tricuspid regurgitation jet envelope not well defined to measure RV systolic pressure accurately. The aortic root is not well visualized but is probably normal size. The inferior vena cava appeared normal and decreased > 50% with respiration (RAP 5-10 mmHg) Minimal pericardial effusion. MMode/2D Measurements & Calculations RVDd: 2.9 cm LVIDd: 4.4 cm FS: 24.3 % Ao root diam: 2.2 cm IVSd: 1.2 cm LVIDs: 3.3 cm EDV(Teich): 86.2 ml LVPWd: 1.4 cm ESV(Teich): 44.3 ml Ao root area: 3.7 cm2 EF(Teich): 48.6 % LA dimension: 3.3 cm Doppler Measurements & Calculations MV E max lexa: MV P1/2t max lexa: Ao V2 max: LV V1 max P.2 cm/sec 78.4 cm/sec 137.3 cm/sec 4.4 mmHg MV A max lexa: MV P1/2t: 62.3 msec Ao max PG: LV V1 max: 128.9 cm/sec 7.5 mmHg 105.3 cm/sec MV E/A: 0.59 MVA(P1/2t): 3.5 cm2 MV dec slope: 368.6 cm/sec2 PA V2 max: TR max lexa: 115.7 cm/sec 214.8 cm/sec PA max P.4 mmHgTR max P.4 mmHg Left Ventricle The left ventricle is grossly normal size. There is mild to moderate concentric left ventricular hypertrophy. Left ventricular systolic function is borderline reduced. The Ejection Fraction estimate is 50-55%. Doppler measurements suggest pseudonormalized left ventricular relaxation, which is associated with grade II/IV or mild to moderate diastolic dysfunction. Wall motion cannot be accurately commented on, but no definite regional wall motion abnormalities noted. Right Ventricle The right ventricle is grossly normal size. There is normal right ventricular wall thickness. The right ventricular systolic function is normal. Atria The right atrium is normal. The left atrium is borderline dilated. Interarterial septum not well visualized and not well dopplered. Cannot comment on ASD/PFO presence. Mitral Valve The mitral valve is grossly normal. There is no mitral valve stenosis. There is a mild amount of mitral regurgitation. Aortic Valve The aortic valve is not well visualized secondary to technical limitations. There is no aortic valve stenosis. No aortic regurgitation is present. Tricuspid Valve The tricuspid valve is not well visualized secondary to technical limitations. There is no tricuspid stenosis. There is a trace or physiologic amount of tricuspid regurgitation. Tricuspid regurgitation jet envelope not well defined to measure RV systolic pressure accurately. Pulmonic Valve The pulmonic valve is not well visualized. Great Vessels The aortic root is not well visualized but is probably normal size. The inferior vena cava appeared normal and decreased > 50% with respiration (RAP 5-10 mmHg). Effusions Minimal pericardial effusion. : ÓSCAR NORRIS > Damian Rainey
--- NOTE | 2017-12-17 20:30 | PDOC CONSULTATION ---
Consultation Consult Date: 12/17/17 Attending physician:: ÓSCAR NORRIS Consult reason:: Chest pain History of Present Illness Admission Date/PCP: 12/17/17 13:03 ÓSCAR NORRIS MD Patient complains of: Chest pain History of Present Illness: IAN FOSTER is a 67 year old female, who has been experiencing chest discomfort mainly on exertion in the center of chest over the last several weeks. However today she woke up with chest pain. Subsequently got dressed to go to primary care physician to be evaluated for an infection in the left lower eyelid. However as she has started going to her car, she developed chest discomfort again. Subsequently when she walked to Dr. Norris's office, she developed chest pain again. Patient was given aspirin and possibly nitroglycerin in the office. She claims that blood pressure was noted to be elevated in the 180s in the office. She was subsequently sent to the emergency room for admission. Initial troponin I came back abnormally elevated. Twelve- lead EKG suggest bundle branch block, left incomplete. I was asked to evaluate patient because of chest pain and abnormal troponin I. Past Medical History Cardiac Medical History: Reports: Hypertension Pulmonary Medical History: Reports: Asthma Endocrine Medical History: Reports: Diabetes Mellitus Type 2 Psychiatric Medical History: Reports: Depression Past Surgical History Past Surgical History: Reports: Tubal Ligation Social History Information Source: Patient Smoking Status: Never Smoker Frequency of Alcohol Use: None Hx Recreational Drug Use: No Drugs: None Hx Prescription Drug Abuse: No - Advance Directive Resuscitation Status: Full Code Family History Family History: DM Parental Family History Reviewed: Yes Children Family History Reviewed: Yes Sibling(s) Family History Reviewed.: Yes Medication/Allergy Home Medications: Albuterol Sulfate [Ventolin Hfa] 2 puff IH Q6HP PRN 12/17/17 Amlodipine Besylate [Norvasc 10 mg Tablet] 10 mg PO DAILY 12/17/17 Budesonide/Formoterol Fumarate [Symbicort 160-4.5 Mcg Inhaler] 2 puff IH Q12 Clonidine HCl [Catapres 0.1 mg Tablet] 0.1 mg PO QHS 12/17/17 Duloxetine HCl [Cymbalta] 60 mg PO DAILY 12/17/17 Exenatide Microspheres [Bydureon Pen] 2 mg SQ TU@1000 12/17/17 Hydrochlorothiazide [Hydrodiuril 12.5 mg Capsule] 12.5 mg PO QAM 12/17/17 Insulin Detemir [Levemir Flextouch] 40 unit SQ DAILY 12/17/17 Isosorb Dinit/Hydralazine HCl [Bidil 20-37.5 mg Tablet] 1 tab PO Q8 12/17/17 Metformin HCl [Glucophage 500 mg Tablet] 500 mg PO TID 12/17/17 Metoprolol Succinate [Toprol Xl 50 mg Tab.sr] 50 mg PO DAILY 12/17/17 Omeprazole 40 mg PO DAILY 12/17/17 Oxybutynin Chloride [Oxybutynin Chloride ER] 10 mg PO DAILY 12/17/17 Pioglitazone HCl [Actos] 15 mg PO DAILY 12/17/17 Pregabalin [Lyrica 75 mg Capsule] 75 mg PO Q12 12/17/17 Simvastatin [Zocor 40 mg Tablet] 40 mg PO QHS 12/17/17 Solifenacin Succinate [Vesicare] 10 mg PO DAILY 12/17/17 Topiramate [Topamax] 200 mg PO Q12 12/17/17 Valsartan [Diovan 160 mg Tablet] 160 mg PO DAILY 12/17/17 Allergies/Adverse Reactions: No Known Allergies Allergy (Verified 04/25/13 18:46) Review of Systems Review of Systems: Please see history of present illness and past medical history as wall. Constitutional: No fever or chills reported. Head : No recent chronic headaches, recent head injury. Eyes: No recent eye pain, diplopia, redness, discharge, acute visual changes. Left eyelid infection noted Ears: No recent chronic ear pain, acute hearing loss, ear discharge. Oral cavity: No recent ulcerations, bleeding, oral cavity discomfort. Neck: No recent acute neck pain reported. Hematologic: No recent easy bruising or bleeding. Lymphatic: No recent lymph node enlargement reported. Cardiovascular system review: See history of present illness. Respiratory system review: No hemoptysis or blood clots in the lungs reported. Mild Shortness of breath on exertion Gastrointestinal system review: Negative for any recent acute hematemesis, melena. Genitourinary system review: No recent acute or chronic hematuria, flank pain, UTI etc. reported. Skin system review: Negative for any recent abnormal bruising, no rash, no pruritus reported. Neurologic: No prior history of strokes, mini strokes, seizure disorder. Psychologic: No history of major psychosis or major depression reported. Musculoskeletal: Minor aches and pains reported. No acute joint swelling reported. Endocrine: No recent polyuria, polydipsia, recent heat or cold intolerance. Physical Exam Vital Signs: Temp Pulse Resp BP Pulse Ox 98.2 F 89 16 165/60 H 98 12/17/17 19:56 12/17/17 19:56 12/17/17 19:56 12/17/17 19:56 12/17/17 19:56 Intake & Output 12/16/17 12/17/17 12/18/17 06:59 06:59 06:59 Intake Total 100 Output Total 0 Balance 100 Weight 95.1 kg Exam: GENERAL: well-nourished and in no acute distress. Alert and oriented x3 HEAD: Atraumatic, normocephalic. EYES: Pupils equal round and reactive to light, extraocular movements intact, sclera anicteric, conjunctiva are normal. ENT: TMs normal, nares patent, oropharynx clear without exudates. Moist mucous membranes. No oral ulcerations or bleeding gums noted NECK: supple without lymphadenopathy. Trachea is central. No cervical or axillary lymphadenopathy noted. Carotids are 2+, JVD WNL LUNGS: Respiration seems nonlabored, no significant accessory muscle action noted. Breath sounds clear to auscultation bilaterally and equal noted. No wheezes rales or rhonchi noted. No significant dullness noted on percussion. CHEST: Palpation of the chest wall shows no significant chest wall tenderness. 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 ABDOMEN: Soft, no significant tenderness appreciated, normoactive bowel sounds. No guarding, no rebound. No rigidity noted . No masses appreciated. EXTREMITIES: Pedal pulses are 1-2+, no calf tenderness noted. No clubbing or cyanosis. negative pedal edema noted NEUROLOGICAL: Focused neurological exam showed no significant neurologic deficit. Normal speech, no focal weakness appreciated. PSYCH: Normal mood, normal affect. Judgment and insight within normal limits. SKIN: No significant ecchymosis, skin is noted to be warm. MUSCULOSKELETAL EXAM: No significant acute joint swelling noted. Results Laboratory Results: 12/17/17 14:27 12/17/17 14:27 12/17/17 12/17/17 14:27 14:27 WBC 5.4 RBC 3.95 Hgb 11.6 L Hct 35.4 L MCV 90 MCH 29.4 MCHC 32.9 RDW 16.4 H Plt Count 323 Sodium 145.2 H Potassium 5.0 Chloride 106 Carbon Dioxide 26 Anion Gap 13 BUN 36 H Creatinine 1.34 H Est GFR ( Amer) 48 L Est GFR (Non-Af Amer) 39 L Glucose 125 H Calcium 9.6 Total Bilirubin 0.7 AST 16 ALT 28 Alkaline Phosphatase 94 Total Protein 7.5 Albumin 4.0 12/17/17 12/17/17 12/17/17 14:27 14:49 14:49 Creatine Kinase 30 CK-MB (CK-2) 0.63 Troponin I 0.105 NT-Pro-B Natriuret Pep 654 EKG Comments: Sinus rhythm with left bundle branch block pattern. Relatively unchanged from EKG from before. Impressions: Chest X-Ray 12/17/17 14:23 IMPRESSION: Cardiomegaly without CHF. Assessment & Plan - Diagnosis (1) Chest pain Qualifiers: Chest pain type: unspecified Qualified Code(s): R07.9 - Chest pain, unspecified Is this a current diagnosis for this admission?: Yes (2) Hypertension Qualifiers: Hypertension type: essential hypertension Qualified Code(s): I10 - Essential (primary) hypertension Is this a current diagnosis for this admission?: Yes (3) Hyperlipidemia Qualifiers: Hyperlipidemia type: unspecified Qualified Code(s): E78.5 - Hyperlipidemia , unspecified Is this a current diagnosis for this admission?: Yes (4) Obesity Qualifiers: Obesity type: unspecified obesity type Is this a current diagnosis for this admission?: Yes (5) Type 2 diabetes mellitus Qualifiers: Diabetes mellitus prison insulin use: 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 Patient to be treated as if she is having acute coronary syndromes/non-STEMI. Patient already on full dose Lovenox, high potency statin therapy, aspirin, Plavix. Will add Ranexa. 2D echocardiogram shows LVEF to be relatively well-preserved at 50-55%. No significant valvular abnormalities noted. Grade 2 diastolic dysfunction noted. Recommend that if patient has recurrent chest pain, then consider transfer to tertiary care for heart catheterization. Hypertension: Blood pressure goal is 140/90. Better goal would be 135/85 or less. Continue current therapy. Hyperlipidemia: Continue high potency statin therapy. LDL goal is less than 70. Type 2 diabetes: This is being adequately managed by bee producer. Obesity: Patient has been encouraged in long-term weight loss. - Time Time Spent: 30 to 50 Minutes - CODE STATUS was discussed, patient remains full code. Surrogate decision-maker unchanged. Multiple medical problems were addressed. More than 50% of the time spent coordinating care, discussing management plans with involved caregivers. Management plans discussed with involved personnels. Medical decision making was of moderate to high complexity , patient's has multiple comorbidities. Medications reviewed and adjusted accordingly: Yes
[2017-12-17 20:45] LABS: CREATINE KINASE MB 0.65 ng/mL (<4.55)
--- NOTE | 2017-12-17 20:46 | PDOC H&P ---
History of Present Illness Admission Date/PCP: 12/17/17 13:03 ÓSCAR NORRIS MD History of Present Illness: IAN FOSTER is a 67 year old female, She has multiple risk factors for ischemic heart disease including type 2 diabetes mellitus, chronic kidney disease stage III, obesity, sedentary lifestyle, hyperlipidemia she came to the office for evaluation of chest pain, the pain is substernal it is exertional in nature. In the office the blood pressure recorded was elevated, the 12-lead EKG was done in the office, it showed sinus rhythm left bundle branch block, she was given a dose of baby aspirin and sublingual nitro in the office and she was admitted directly from the office to the hospital for further evaluation. The initial troponin was elevated in the acute myocardial infarction range Past Medical History Cardiac Medical History: Reports: Hypertension Pulmonary Medical History: Reports: Asthma Endocrine Medical History: Reports: Diabetes Mellitus Type 2, Obesity Psychiatric Medical History: Reports: Depression Past Surgical History Past Surgical History: Reports: Tubal Ligation Social History Smoking Status: Never Smoker Frequency of Alcohol Use: None Hx Recreational Drug Use: No Drugs: None Hx Prescription Drug Abuse: No - Advance Directive Resuscitation Status: Full Code Family History Family History: DM Parental Family History Reviewed: Yes Children Family History Reviewed: Yes Sibling(s) Family History Reviewed.: Yes Medication/Allergy Home Medications: Albuterol Sulfate [Ventolin Hfa] 2 puff IH Q6HP PRN 12/17/17 Amlodipine Besylate [Norvasc 10 mg Tablet] 10 mg PO DAILY 12/17/17 Budesonide/Formoterol Fumarate [Symbicort 160-4.5 Mcg Inhaler] 2 puff IH Q12 Clonidine HCl [Catapres 0.1 mg Tablet] 0.1 mg PO QHS 12/17/17 Duloxetine HCl [Cymbalta] 60 mg PO DAILY 12/17/17 Exenatide Microspheres [Bydureon Pen] 2 mg SQ TU@1000 12/17/17 Hydrochlorothiazide [Hydrodiuril 12.5 mg Capsule] 12.5 mg PO QAM 12/17/17 Insulin Detemir [Levemir Flextouch] 40 unit SQ DAILY 12/17/17 Isosorb Dinit/Hydralazine HCl [Bidil 20-37.5 mg Tablet] 1 tab PO Q8 12/17/17 Metformin HCl [Glucophage 500 mg Tablet] 500 mg PO TID 12/17/17 Metoprolol Succinate [Toprol Xl 50 mg Tab.sr] 50 mg PO DAILY 12/17/17 Omeprazole 40 mg PO DAILY 12/17/17 Oxybutynin Chloride [Oxybutynin Chloride ER] 10 mg PO DAILY 12/17/17 Pioglitazone HCl [Actos] 15 mg PO DAILY 12/17/17 Pregabalin [Lyrica 75 mg Capsule] 75 mg PO Q12 12/17/17 Simvastatin [Zocor 40 mg Tablet] 40 mg PO QHS 12/17/17 Solifenacin Succinate [Vesicare] 10 mg PO DAILY 12/17/17 Topiramate [Topamax] 200 mg PO Q12 12/17/17 Valsartan [Diovan 160 mg Tablet] 160 mg PO DAILY 12/17/17 Allergies/Adverse Reactions: No Known Allergies Allergy (Verified 04/25/13 18:46) Review of Systems Constitutional: ABSENT: chills, fever(s), headache(s), weight gain, weight loss Eyes: ABSENT: visual disturbances Ears: ABSENT: hearing changes Cardiovascular: PRESENT: chest pain. ABSENT: dyspnea on exertion, edema, orthropnea, palpitations Respiratory: ABSENT: cough, hemoptysis Gastrointestinal: ABSENT: abdominal pain, constipation, diarrhea, hematemesis, hematochezia, nausea, vomiting Genitourinary: ABSENT: dysuria, hematuria Musculoskeletal: ABSENT: joint swelling Integumentary: ABSENT: rash, wounds Neurological: ABSENT: abnormal gait, abnormal speech, confusion, dizziness, focal weakness, syncope Psychiatric: ABSENT: anxiety, depression, homidical ideation, suicidal ideation Endocrine: ABSENT: cold intolerance, heat intolerance, menstrual abnormalities, polydipsia, polyuria Hematologic/Lymphatic: ABSENT: easy bleeding, easy bruising, lymphadenopathy Physical Exam Vital Signs: Temp Pulse Resp BP Pulse Ox 98.2 F 89 16 165/60 H 98 12/17/17 19:56 12/17/17 19:56 12/17/17 19:56 12/17/17 19:56 12/17/17 19:56 Intake & Output 12/16/17 12/17/17 12/18/17 06:59 06:59 06:59 Intake Total 100 Output Total 0 Balance 100 Weight 95.1 kg General appearance: PRESENT: morbidly obese, well-developed, well-nourished Head exam: PRESENT: atraumatic, normocephalic Eye exam: PRESENT: conjunctiva pink, EOMI, PERRLA Ear exam: PRESENT: other - Acute blepharitis of the left lower eyelid Mouth exam: PRESENT: moist, tongue midline Neck exam: PRESENT: full ROM. ABSENT: carotid bruit, JVD, lymphadenopathy, thyromegaly Respiratory exam: PRESENT: clear to auscultation leroy Cardiovascular exam: PRESENT: RRR, +S1, +S2 Vascular exam: PRESENT: normal capillary refill GI/Abdominal exam: PRESENT: normal bowel sounds, soft Rectal exam: PRESENT: deferred Neurological exam: PRESENT: alert, awake, oriented to person, oriented to place , oriented to time, oriented to situation, CN II-XII grossly intact Psychiatric exam: PRESENT: appropriate affect, normal mood Skin exam: PRESENT: dry, intact, warm Results Laboratory Results: 12/17/17 14:27 12/17/17 14:27 12/17/17 12/17/17 14:27 14:27 WBC 5.4 RBC 3.95 Hgb 11.6 L Hct 35.4 L MCV 90 MCH 29.4 MCHC 32.9 RDW 16.4 H Plt Count 323 Sodium 145.2 H Potassium 5.0 Chloride 106 Carbon Dioxide 26 Anion Gap 13 BUN 36 H Creatinine 1.34 H Est GFR ( Amer) 48 L Est GFR (Non-Af Amer) 39 L Glucose 125 H Calcium 9.6 Total Bilirubin 0.7 AST 16 ALT 28 Alkaline Phosphatase 94 Total Protein 7.5 Albumin 4.0 12/17/17 12/17/17 12/17/17 14:27 14:49 14:49 Creatine Kinase 30 CK-MB (CK-2) 0.63 Troponin I 0.105 NT-Pro-B Natriuret Pep 654 12/17/17 19:52 Creatine Kinase 26 L CK-MB (CK-2) Troponin I NT-Pro-B Natriuret Pep Impressions: Chest X-Ray 12/17/17 14:23 IMPRESSION: Cardiomegaly without CHF. Assessment & Plan - Diagnosis (1) Acute coronary syndrome Is this a current diagnosis for this admission?: Yes Plan: This symptom is suggestive of unstable angina,, troponin elevated, she was given Plavix 300 mg p.o. 1 dose, aspirin 81 mg 2 tablet p.o. Lovenox 1 mg/kg bradycardia with subcu every 12 (2) Non-ST elevated myocardial infarction Is this a current diagnosis for this admission?: Yes (3) Morbid obesity Is this a current diagnosis for this admission?: Yes (4) Chronic kidney disease, stage 3 Is this a current diagnosis for this admission?: Yes (5) Severe persistent asthma Qualifiers: Asthma complication type: unspecified Qualified Code(s): J45.50 - Severe persistent asthma, uncomplicated Is this a current diagnosis for this admission?: Yes (6) Type 2 diabetes mellitus Qualifiers: Diabetes mellitus chcf insulin use: unspecified chcf insulin use status Diabetes mellitus complication status: with unspecified complications Qualified Code(s): E11.8 - Type 2 diabetes mellitus with unspecified complications Is this a current diagnosis for this admission?: Yes
[2017-12-17 20:48] LABS: TROPONIN I 0.141 ng/mL
[2017-12-17] MEDS: PREGABALIN 75 MG CAPSULE PO SCH (21:17)
[2017-12-17] MEDS: RANOLAZINE 500 MG TAB.SR.12H PO SCH (21:17)
[2017-12-17] MEDS: METOPROLOL SUCCINATE 50 MG TAB.SR.24H PO SCH (21:17)
[2017-12-17] MEDS: ISOSORB DINIT/HYDRALAZINE HCL 20-37.5 MG TABLET PO SCH (21:17)
[2017-12-17] MEDS: TOPIRAMATE 100 MG TABLET PO SCH (21:17)
[2017-12-17] MEDS: BUDESONIDE/FORMOTEROL 160-4.5 MCG 60 PUFF/6 GM MDI IH SCH (21:18)
[2017-12-17] MEDS ORDERED: ATORVASTATIN CALCIUM 40 MG TABLET PO SCH (22:00)
[2017-12-17] MEDS: INSULIN LISPRO 100 UNIT/ML 3 ML VIAL SUBCUT PRN (22:14)
[2017-12-17] MEDS: CLONIDINE HCL 0.1 MG TABLET PO SCH (22:53)
[2017-12-17] MEDS ORDERED: IPRATROPIUM/ALBUTEROL 0.5-2.5 MG/3 ML AMPUL NEB PRN (23:48)
[2017-12-18 00:06] LABS: APPEARANCE,URINE CLEAR; BILIRUBIN,URINE NEGATIVE (NEGATIVE); COLOR,URINE YELLOW; GLUCOSE, URINE >=500 mg/dL (NEGATIVE); KETONES,URINE NEGATIVE (NEGATIVE); LEUKOCYTE ESTERASE,URINE NEGATIVE (NEGATIVE); NITRITE,URINE NEGATIVE (NEGATIVE); PROTEIN,URINE 100 mg/dL (NEGATIVE); URINE SPECIFIC GRAVITY 1.011; UROBILINOGEN,URINE NEGATIVE mg/dL (<2.0)
[2017-12-18 02:50] LABS: CREATINE KINASE MB 0.6 ng/mL (<4.55); TROPONIN I 0.137 ng/mL
[2017-12-18] MEDS: LANSOPRAZOLE 30 MG TAB.RAP.DR PO SCH (05:37)
[2017-12-18] MEDS: ENOXAPARIN SODIUM INJ 100 MG/1 ML DISP.SYRIN SUBCUT SCH ×2 (05:37→18:03)
[2017-12-18] MEDS: ISOSORB DINIT/HYDRALAZINE HCL 20-37.5 MG TABLET PO SCH ×3 (05:41→22:25)
[2017-12-18 07:06] LABS: ABSOLUTE EOSINOPHILS # (AUTO) 0.5 10^3/uL (0.0-0.6); ABSOLUTE MONOCYTES (AUTO) 0.9 10^3/uL (0.1-1.4); ABSOLUTE NEUT (AUTO) 2.6 10^3/uL (1.7-8.2); BASOPHILS % (AUTO) 0.9 % (0-2); HEMATOCRIT 32.3 % (36.0-47.0); HEMOGLOBIN 10.8 g/dL (12.0-15.5); LYMPHOCYTES % (AUTO) 20.6 % (13-45); MEAN CORPUSCULAR HEMOGLOBIN 29.7 pg (27.0-33.4); MEAN CORPUSCULAR HGB CONC 33.3 g/dL (32.0-36.0); MEAN CORPUSCULAR VOLUME 89 fl (80-97); MONOCYTES % (AUTO) 17.1 % (3-13); PLATELET COUNT 300 10^3/uL (150-450); RED BLOOD COUNT 3.62 10^6/uL (3.72-5.28); RED CELL DISTRIBUTION WIDTH 16.1 % (11.5-14.0); SEGMENTED NEUTROPHILS % (AUTO) 51.4 % (42-78); TOTAL CELLS COUNTED % (AUTO) 100 %; WHITE BLOOD COUNT 5.1 10^3/uL (4.0-10.5)
[2017-12-18 07:22] LABS: ANION GAP 11 (5-19); BLOOD UREA NITROGEN 35 mg/dL (7-20); CALCIUM 8.8 mg/dL (8.4-10.2); CARBON DIOXIDE 25 mmol/L (22-30); CHLORIDE 104 mmol/L (98-107); GLUCOSE 169 mg/dL (75-110); POTASSIUM 4.8 mmol/L (3.6-5.0); SODIUM 140.2 mmol/L (137-145)
[2017-12-18] MEDS: RANOLAZINE 500 MG TAB.SR.12H PO SCH ×2 (09:22→21:54)
[2017-12-18] MEDS: TOPIRAMATE 100 MG TABLET PO SCH ×2 (09:24→21:54)
[2017-12-18] MEDS: OXYBUTYNIN CHLORIDE 5 MG TABLET PO SCH (09:26)
[2017-12-18] MEDS: HYDROCHLOROTHIAZIDE 12.5 MG CAPSULE PO SCH (09:27)
[2017-12-18] MEDS: AMLODIPINE BESYLATE 10 MG TABLET PO SCH (09:27)
[2017-12-18] MEDS: PREGABALIN 75 MG CAPSULE PO SCH ×2 (09:28→21:54)
[2017-12-18] MEDS: METOPROLOL SUCCINATE 50 MG TAB.SR.24H PO SCH ×2 (09:28→22:25)
[2017-12-18] MEDS: CLOPIDOGREL BISULFATE 75 MG TABLET PO SCH (09:29)
[2017-12-18] MEDS: METFORMIN HCL 500 MG TABLET PO SCH ×3 (09:29→18:03)
[2017-12-18] MEDS: ASPIRIN 81 MG TABLET, ENT COATED PO SCH (09:29)
[2017-12-18] MEDS: INSULIN DETEMIR 100 UNIT/ML 3 ML PEN SUBCUT SCH (09:29)
[2017-12-18] MEDS: GENTAMICIN SULFATE 0.3% OPH OINT 3.5 GM OS SCH (09:30)
[2017-12-18] MEDS: VALSARTAN 160 MG TABLET PO SCH (09:36)
[2017-12-18] MEDS: DULOXETINE HCL 30 MG CAPSULE.DR PO SCH (09:36)
[2017-12-18] MEDS: BUDESONIDE/FORMOTEROL 160-4.5 MCG 60 PUFF/6 GM MDI IH SCH ×2 (09:36→21:54)
[2017-12-18] MEDS: PIOGLITAZONE HCL 15 MG TABLET PO SCH (09:40)
[2017-12-18] MEDS ORDERED: GENTAMICIN SULFATE 0.3% OPH OINT 3.5 GM OS SCH (10:00)
[2017-12-18] MEDS ORDERED: METOPROLOL SUCCINATE 50 MG TAB.SR.24H PO SCH (10:00)
[2017-12-18] MEDS: INSULIN LISPRO 100 UNIT/ML 3 ML VIAL SUBCUT PRN (12:41)
--- NOTE | 2017-12-18 12:49 | PDOC PROGRESS REPORT ---
Subjective Progress Note for:: 12/18/17 Subjective:: Patient has noted some intermittent chest discomfort mainly when she is up and about in the room. Overall she claims that intensity is much less and duration is much less. Her cardiac enzymes especially troponin I has come back in the low suggestive range. Patient also noted to have significant renal dysfunction. Patient was noted to have relatively well preserved LVEF. Reason For Visit: CHEST PAIN,CKD STAGE 3,TYPE 2 DIABETES,MULTIPLY Physical Exam Vital Signs: Temp Pulse Resp BP Pulse Ox 97.4 F 63 20 143/59 H 96 12/18/17 11:38 12/18/17 11:38 12/18/17 11:38 12/18/17 11:38 12/18/17 11:38 Intake & Output 12/17/17 12/18/17 12/19/17 06:59 06:59 06:59 Intake Total 705 Output Total 1 Balance 704 Weight 100.6 kg Exam: GENERAL: well-nourished and in no acute distress. Alert and oriented x3 HEAD: Atraumatic, normocephalic. EYES: Pupils equal round and reactive to light, extraocular movements intact, sclera anicteric, conjunctiva are normal. ENT: TMs normal, nares patent, oropharynx clear without exudates. Moist mucous membranes. No oral ulcerations or bleeding gums noted NECK: supple without lymphadenopathy. Trachea is central. No cervical or axillary lymphadenopathy noted. Carotids are 2+, JVD WNL LUNGS: Respiration seems nonlabored, no significant accessory muscle action noted. Breath sounds clear to auscultation bilaterally and equal noted. No wheezes rales or rhonchi noted. No significant dullness noted on percussion. CHEST: Palpation of the chest wall shows no significant chest wall tenderness. 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 ABDOMEN: Soft, no significant tenderness appreciated, normoactive bowel sounds. No guarding, no rebound. No rigidity noted . No masses appreciated. EXTREMITIES: Pedal pulses are 1-2+, no calf tenderness noted. No clubbing or cyanosis. negative pedal edema noted NEUROLOGICAL: Focused neurological exam showed no significant neurologic deficit. Normal speech, no focal weakness appreciated. PSYCH: Normal mood, normal affect. Judgment and insight within normal limits. SKIN: No significant ecchymosis, skin is noted to be warm. MUSCULOSKELETAL EXAM: No significant acute joint swelling noted. Results Laboratory Results: 12/18/17 06:49 12/18/17 06:49 12/17/17 12/17/17 12/17/17 14:27 14:27 23:05 WBC 5.4 RBC 3.95 Hgb 11.6 L Hct 35.4 L MCV 90 MCH 29.4 MCHC 32.9 RDW 16.4 H Plt Count 323 Seg Neutrophils % Lymphocytes % Monocytes % Eosinophils % Basophils % Absolute Neutrophils Absolute Lymphocytes Absolute Monocytes Absolute Eosinophils Absolute Basophils Sodium 145.2 H Potassium 5.0 Chloride 106 Carbon Dioxide 26 Anion Gap 13 BUN 36 H Creatinine 1.34 H Est GFR ( Amer) 48 L Est GFR (Non-Af Amer) 39 L Glucose 125 H Calcium 9.6 Total Bilirubin 0.7 AST 16 ALT 28 Alkaline Phosphatase 94 Total Protein 7.5 Albumin 4.0 Urine Color YELLOW Urine Appearance CLEAR Urine pH 6.0 Ur Specific [place] 1.011 Urine Protein 100 H Urine Glucose (UA) >=500 H Urine Ketones NEGATIVE Urine Blood NEGATIVE Urine Nitrite NEGATIVE Ur Leukocyte Esterase NEGATIVE Urine WBC (Auto) 1 Urine RBC (Auto) 3 12/18/17 12/18/17 06:49 06:49 WBC 5.1 RBC 3.62 L Hgb 10.8 L Hct 32.3 L MCV 89 MCH 29.7 MCHC 33.3 RDW 16.1 H Plt Count 300 Seg Neutrophils % 51.4 Lymphocytes % 20.6 Monocytes % 17.1 H Eosinophils % 10.0 H Basophils % 0.9 Absolute Neutrophils 2.6 Absolute Lymphocytes 1.0 Absolute Monocytes 0.9 Absolute Eosinophils 0.5 Absolute Basophils 0.0 Sodium 140.2 Potassium 4.8 Chloride 104 Carbon Dioxide 25 Anion Gap 11 BUN 35 H Creatinine 1.44 H Est GFR ( Amer) 44 L Est GFR (Non-Af Amer) 36 L Glucose 169 H Calcium 8.8 Total Bilirubin AST ALT Alkaline Phosphatase Total Protein Albumin Urine Color Urine Appearance Urine pH Ur Specific [place] Urine Protein Urine Glucose (UA) Urine Ketones Urine Blood Urine Nitrite Ur Leukocyte Esterase Urine WBC (Auto) Urine RBC (Auto) 12/17/17 12/17/17 12/17/17 14:27 14:49 14:49 Creatine Kinase 30 CK-MB (CK-2) 0.63 Troponin I 0.105 NT-Pro-B Natriuret Pep 654 12/17/17 12/17/17 12/18/17 19:52 19:52 02:06 Creatine Kinase 26 L 25 L CK-MB (CK-2) 0.65 Troponin I 0.141 NT-Pro-B Natriuret Pep 12/18/17 02:06 Creatine Kinase CK-MB (CK-2) 0.60 Troponin I 0.137 NT-Pro-B Natriuret Pep EKG Comments: Telemetry strip shows sinus rhythm without any sustained tachycardia or bradycardia. Impressions: Chest X-Ray 12/17/17 14:23 IMPRESSION: Cardiomegaly without CHF. Assessment & Plan - Diagnosis (1) Chest pain Qualifiers: Chest pain type: unspecified Qualified Code(s): R07.9 - Chest pain, unspecified Is this a current diagnosis for this admission?: Yes (2) Hypertension Qualifiers: Hypertension type: essential hypertension Qualified Code(s): I10 - Essential (primary) hypertension Is this a current diagnosis for this admission?: Yes (3) Hyperlipidemia Qualifiers: Hyperlipidemia type: unspecified Qualified Code(s): E78.5 - Hyperlipidemia , unspecified Is this a current diagnosis for this admission?: Yes (4) Obesity Qualifiers: Obesity type: unspecified obesity type Is this a current diagnosis for this admission?: Yes (5) Type 2 diabetes mellitus 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 At this point continue to trend cardiac enzymes. If patient continues with recurrent chest pain, or has significant cardiac dysrhythmia, CHF etc. recommend transfer to tertiary care for urgent cath otherwise follow medically at this point over the weekend. Please note that I am not here on Wednesday. Discussed with Dr. Gonzalez. Chest pain: History suggest unstable angina/acute coronary syndrome. Patient to be treated as if she is having acute coronary syndromes/non-STEMI. Enzyme level now in the non-STEMI range. However total CK and CK-MB are WNL. Patient already on full dose Lovenox, high potency statin therapy, aspirin, Plavix. Will add Ranexa. 2D echocardiogram shows LVEF to be relatively well-preserved at 50-55%. No significant valvular abnormalities noted. Grade 2 diastolic dysfunction noted. Recommend that if patient has recurrent chest pain, then consider transfer to tertiary care for heart catheterization. Hypertension: Blood pressure goal is 140/90. Better goal would be 135/85 or less. Continue current therapy. Hyperlipidemia: Continue high potency statin therapy. LDL goal is less than 70. Increased Lipitor to 80 mg p.o. nightly. Type 2 diabetes: This is being adequately managed by program architect. Obesity: Patient has been encouraged in long-term weight loss. - Time Time with patient: Greater than 35 minutes - CODE STATUS was discussed, patient remains full code. Surrogate decision-maker unchanged. Multiple medical problems were addressed. More than 50% of the time spent coordinating care, discussing management plans with involved caregivers. Management plans discussed with involved personnels. Medical decision making was of moderate to high complexity, patient's has multiple comorbidities. Medications reviewed and adjusted accordingly: Yes
--- NOTE | 2017-12-18 16:01 | PDOC PROGRESS REPORT ---
Subjective Progress Note for:: 12/18/17 Subjective:: She was admitted yesterday for the management of acute coronary syndrome, non- ST elevation NV. The troponin peaked at 0.14, she was seen by the bedside, still have intermittent chest pain especially on mild exertion. Consultation was requested from cardiology, 2D echo was done and ejection fraction of left ventricle is preserved, if symptoms are not resolved she may need cardiac catheterization, she may need to be to tertiary care center for the procedure. Reason For Visit: CHEST PAIN,CKD STAGE 3,TYPE 2 DIABETES,MULTIPLY Physical Exam Vital Signs: Temp Pulse Resp BP Pulse Ox 97.4 F 71 20 143/59 H 96 12/18/17 11:38 12/18/17 14:00 12/18/17 11:38 12/18/17 11:38 12/18/17 11:38 Intake & Output 12/17/17 12/18/17 12/19/17 06:59 06:59 06:59 Intake Total 705 237 Output Total 1 400 Balance 704 -163 Weight 100.6 kg General appearance: PRESENT: no acute distress, well-developed, well-nourished Head exam: PRESENT: atraumatic, normocephalic Eye exam: PRESENT: conjunctiva pink, EOMI, PERRLA Ear exam: PRESENT: normal external ear exam Mouth exam: PRESENT: moist, tongue midline Neck exam: PRESENT: full ROM Respiratory exam: PRESENT: clear to auscultation leroy Cardiovascular exam: PRESENT: RRR, +S1, +S2 Pulses: PRESENT: normal dorsalis pedis pul, +2 pedal pulses bilateral Vascular exam: PRESENT: normal capillary refill GI/Abdominal exam: PRESENT: normal bowel sounds, soft Rectal exam: PRESENT: deferred Neurological exam: PRESENT: alert, awake, oriented to person, oriented to place , oriented to time, oriented to situation, CN II-XII grossly intact Psychiatric exam: PRESENT: appropriate affect, normal mood Skin exam: PRESENT: dry, intact, warm. ABSENT: cyanosis, rash Results Laboratory Results: 12/18/17 06:49 12/18/17 06:49 12/17/17 12/18/17 12/18/17 23:05 06:49 06:49 WBC 5.1 RBC 3.62 L Hgb 10.8 L Hct 32.3 L MCV 89 MCH 29.7 MCHC 33.3 RDW 16.1 H Plt Count 300 Seg Neutrophils % 51.4 Lymphocytes % 20.6 Monocytes % 17.1 H Eosinophils % 10.0 H Basophils % 0.9 Absolute Neutrophils 2.6 Absolute Lymphocytes 1.0 Absolute Monocytes 0.9 Absolute Eosinophils 0.5 Absolute Basophils 0.0 Sodium 140.2 Potassium 4.8 Chloride 104 Carbon Dioxide 25 Anion Gap 11 BUN 35 H Creatinine 1.44 H Est GFR ( Amer) 44 L Est GFR (Non-Af Amer) 36 L Glucose 169 H Calcium 8.8 Urine Color YELLOW Urine Appearance CLEAR Urine pH 6.0 Ur Specific [place] 1.011 Urine Protein 100 H Urine Glucose (UA) >=500 H Urine Ketones NEGATIVE Urine Blood NEGATIVE Urine Nitrite NEGATIVE Ur Leukocyte Esterase NEGATIVE Urine WBC (Auto) 1 Urine RBC (Auto) 3 12/17/17 12/17/17 12/17/17 14:27 14:49 14:49 Creatine Kinase 30 CK-MB (CK-2) 0.63 Troponin I 0.105 NT-Pro-B Natriuret Pep 654 12/17/17 12/17/17 12/18/17 19:52 19:52 02:06 Creatine Kinase 26 L 25 L CK-MB (CK-2) 0.65 Troponin I 0.141 NT-Pro-B Natriuret Pep 12/18/17 02:06 Creatine Kinase CK-MB (CK-2) 0.60 Troponin I 0.137 NT-Pro-B Natriuret Pep Impressions: Chest X-Ray 12/17/17 14:23 IMPRESSION: Cardiomegaly without CHF. Assessment & Plan - Diagnosis (1) Acute coronary syndrome Is this a current diagnosis for this admission?: Yes (2) Non-ST elevated myocardial infarction Is this a current diagnosis for this admission?: Yes (3) Morbid obesity Is this a current diagnosis for this admission?: Yes (4) Chronic kidney disease, stage 3 Is this a current diagnosis for this admission?: Yes (5) Severe persistent asthma Qualifiers: Asthma complication type: unspecified Qualified Code(s): J45.50 - Severe persistent asthma, uncomplicated Is this a current diagnosis for this admission?: Yes (6) Type 2 diabetes mellitus Qualifiers: Diabetes mellitus correction insulin use: unspecified watermaster insulin use status Diabetes mellitus complication status: with unspecified complications Qualified Code(s): E11.8 - Type 2 diabetes mellitus with unspecified complications Is this a current diagnosis for this admission?: Yes - Plan Summary Plan Summary: Continue treatment
[2017-12-18 18:22] LABS: ALANINE AMINOTRANSFERASE 21 U/L (9-52); ALBUMIN 3.4 g/dL (3.5-5.0); ALKALINE PHOSPHATASE 73 U/L (38-126); ASPARTATE AMINO TRANSFERASE 15 U/L (14-36); BILIRUBIN,DIRECT 0.3 mg/dL (0.0-0.4); BILIRUBIN,TOTAL 0.7 mg/dL (0.2-1.3); TOTAL PROTEIN 6.5 g/dL (6.3-8.2)
[2017-12-18] MEDS: ATORVASTATIN CALCIUM 80 MG TABLET PO SCH (21:54)
[2017-12-18] MEDS: CLONIDINE HCL 0.1 MG TABLET PO SCH (22:25)
[2017-12-19] MEDS: LANSOPRAZOLE 30 MG TAB.RAP.DR PO SCH (05:48)
[2017-12-19] MEDS: ENOXAPARIN SODIUM INJ 100 MG/1 ML DISP.SYRIN SUBCUT SCH ×2 (05:48→17:05)
[2017-12-19] MEDS: ISOSORB DINIT/HYDRALAZINE HCL 20-37.5 MG TABLET PO SCH ×3 (05:48→22:25)
[2017-12-19] MEDS: HYDROCHLOROTHIAZIDE 12.5 MG CAPSULE PO SCH (07:57)
[2017-12-19] MEDS: INSULIN DETEMIR 100 UNIT/ML 3 ML PEN SUBCUT SCH (09:15)
[2017-12-19] MEDS: GENTAMICIN SULFATE 0.3% OPH OINT 3.5 GM OS SCH (09:15)
[2017-12-19] MEDS: DULOXETINE HCL 30 MG CAPSULE.DR PO SCH (09:16)
[2017-12-19] MEDS: PREGABALIN 75 MG CAPSULE PO SCH ×2 (09:16→21:41)
[2017-12-19] MEDS: BUDESONIDE/FORMOTEROL 160-4.5 MCG 60 PUFF/6 GM MDI IH SCH ×2 (09:16→21:42)
[2017-12-19] MEDS: TOPIRAMATE 100 MG TABLET PO SCH ×2 (09:16→21:42)
[2017-12-19] MEDS: METOPROLOL SUCCINATE 50 MG TAB.SR.24H PO SCH (09:17)
[2017-12-19] MEDS: OXYBUTYNIN CHLORIDE 5 MG TABLET PO SCH (09:17)
[2017-12-19] MEDS: METFORMIN HCL 500 MG TABLET PO SCH ×3 (09:17→17:05)
[2017-12-19] MEDS: ASPIRIN 81 MG TABLET, ENT COATED PO SCH (09:17)
[2017-12-19] MEDS: PIOGLITAZONE HCL 15 MG TABLET PO SCH (09:18)
[2017-12-19] MEDS: AMLODIPINE BESYLATE 10 MG TABLET PO SCH (09:18)
[2017-12-19] MEDS: RANOLAZINE 500 MG TAB.SR.12H PO SCH ×2 (09:18→21:42)
[2017-12-19] MEDS: CLOPIDOGREL BISULFATE 75 MG TABLET PO SCH (09:18)
[2017-12-19] MEDS: VALSARTAN 160 MG TABLET PO SCH (09:18)
--- NOTE | 2017-12-19 12:27 | PDOC PROGRESS REPORT ---
Subjective Progress Note for:: 12/19/17 Subjective:: Patient has noted some intermittent chest discomfort mainly when she is up and about in the room. The chest pain is now described as sharp and is noted when she is reaching up. Overall she claims that intensity is much less and duration is much less. Her cardiac enzymes especially troponin I has come back in the low suggestive range. Patient also noted to have significant renal dysfunction. Patient was noted to have relatively well preserved LVEF. Reason For Visit: CHEST PAIN,CKD STAGE 3,TYPE 2 DIABETES,MULTIPLY Physical Exam Vital Signs: Temp Pulse Resp BP Pulse Ox 97.8 F 72 15 119/43 L 95 12/19/17 08:01 12/19/17 08:01 12/19/17 08:01 12/19/17 08:01 12/19/17 08:01 Intake & Output 12/18/17 12/19/17 12/20/17 06:59 06:59 06:59 Intake Total 705 655 Output Total 1 400 Balance 704 255 Weight 100.6 kg 97.4 kg Exam: GENERAL: well-nourished and in no acute distress. Alert and oriented x3 HEAD: Atraumatic, normocephalic. EYES: Pupils equal round and reactive to light, extraocular movements intact, sclera anicteric, conjunctiva are normal. ENT: TMs normal, nares patent, oropharynx clear without exudates. Moist mucous membranes. No oral ulcerations or bleeding gums noted NECK: supple without lymphadenopathy. Trachea is central. No cervical or axillary lymphadenopathy noted. Carotids are 2+, JVD WNL LUNGS: Respiration seems nonlabored, no significant accessory muscle action noted. Breath sounds clear to auscultation bilaterally and equal noted. No wheezes rales or rhonchi noted. No significant dullness noted on percussion. CHEST: Palpation of the chest wall shows presence of mild left-sided chest wall tenderness. 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 ABDOMEN: Soft, no significant tenderness appreciated, normoactive bowel sounds. No guarding, no rebound. No rigidity noted . No masses appreciated. EXTREMITIES: Pedal pulses are 1-2+, no calf tenderness noted. No clubbing or cyanosis. negative pedal edema noted NEUROLOGICAL: Focused neurological exam showed no significant neurologic deficit. Normal speech, no focal weakness appreciated. PSYCH: Normal mood, normal affect. Judgment and insight within normal limits. SKIN: No significant ecchymosis, skin is noted to be warm. MUSCULOSKELETAL EXAM: No significant acute joint swelling noted. Results Laboratory Results: 12/18/17 06:49 12/18/17 06:49 12/18/17 18:03 Total Bilirubin 0.7 AST 15 ALT 21 Alkaline Phosphatase 73 Total Protein 6.5 Albumin 3.4 L 12/17/17 12/17/17 12/17/17 14:27 14:49 14:49 Creatine Kinase 30 CK-MB (CK-2) 0.63 Troponin I 0.105 NT-Pro-B Natriuret Pep 654 12/17/17 12/17/17 12/18/17 19:52 19:52 02:06 Creatine Kinase 26 L 25 L CK-MB (CK-2) 0.65 Troponin I 0.141 NT-Pro-B Natriuret Pep 12/18/17 02:06 Creatine Kinase CK-MB (CK-2) 0.60 Troponin I 0.137 NT-Pro-B Natriuret Pep EKG Comments: Telemetry strips shows sinus rhythm without any sustained tachycardia or bradycardia. Impressions: Chest X-Ray 12/17/17 14:23 IMPRESSION: Cardiomegaly without CHF. Assessment & Plan - Diagnosis (1) Chest pain Qualifiers: Chest pain type: unspecified Qualified Code(s): R07.9 - Chest pain, unspecified Is this a current diagnosis for this admission?: Yes (2) Hypertension Qualifiers: Hypertension type: essential hypertension Qualified Code(s): I10 - Essential (primary) hypertension Is this a current diagnosis for this admission?: Yes (3) Hyperlipidemia Qualifiers: Hyperlipidemia type: unspecified Qualified Code(s): E78.5 - Hyperlipidemia , unspecified Is this a current diagnosis for this admission?: Yes (4) Obesity Qualifiers: Obesity type: unspecified obesity type Is this a current diagnosis for this admission?: Yes (5) Type 2 diabetes mellitus Qualifiers: Diabetes mellitus director of campus recreation insulin use: unspecified director of campus recreation insulin use status Diabetes mellitus complication status: with unspecified complications Qualified Code(s): E11.8 - Type 2 diabetes mellitus with unspecified complications Is this a current diagnosis for this admission?: Yes (6) Non-ST elevated myocardial infarction Is this a current diagnosis for this admission?: Yes - Notes Notes: Non-STEMI patient's medical regimen reviewed and is noted to be very satisfactory. Have increased metoprolol succinate to 100 mg p.o. twice daily. If patient continues with recurrent chest pain, or has significant cardiac dysrhythmia, CHF etc. recommend transfer to tertiary care for urgent cath otherwise follow medically at this point over the weekend. Please note that I am not here on Wednesday. Discussed with Dr. Gonzalez. Chest pain: History suggest unstable angina/acute coronary syndrome. Patient to be treated as if she is having acute coronary syndromes/non-STEMI. Enzyme level now in the non-STEMI range. However total CK and CK-MB are WNL. Patient already on full dose Lovenox, high potency statin therapy, aspirin, Plavix. Added and increased her Ranexa dose. 2D echocardiogram shows LVEF to be relatively well-preserved at 50-55%. No significant valvular abnormalities noted. Grade 2 diastolic dysfunction noted. Recommend that if patient has recurrent chest pain, then consider transfer to tertiary care for heart catheterization. Hypertension: Blood pressure goal is 140/90. Better goal would be 135/85 or less. Continue current therapy. Hyperlipidemia: Continue high potency statin therapy. LDL goal is less than 70. Increased Lipitor to 80 mg p.o. nightly. Type 2 diabetes: This is being adequately managed by neighborhood service [facility] director. Obesity: Patient has been encouraged in long-term weight loss. - Time Time with patient: Greater than 35 minutes - CODE STATUS was discussed, patient remains full code. Surrogate decision-maker unchanged. Multiple medical problems were addressed. More than 50% of the time spent coordinating care, discussing management plans with involved caregivers. Management plans discussed with involved personnels. Medical decision making was of moderate to high complexity, patient's has multiple comorbidities. Medications reviewed and adjusted accordingly: Yes
--- NOTE | 2017-12-19 15:36 | PDOC PROGRESS REPORT ---
Subjective Progress Note for:: 12/19/17 Subjective:: She was seen by the bedside, she is still complaining of intermittent chest pain , she was seen by advanced practice provider Reason For Visit: CHEST PAIN,CKD STAGE 3,TYPE 2 DIABETES,MULTIPLY Physical Exam Vital Signs: Temp Pulse Resp BP Pulse Ox 97.7 F 78 16 111/40 L 97 12/19/17 11:56 12/19/17 11:56 12/19/17 11:56 12/19/17 11:56 12/19/17 11:56 Intake & Output 12/18/17 12/19/17 12/20/17 06:59 06:59 06:59 Intake Total 705 655 237 Output Total 1 400 Balance 704 255 237 Weight 100.6 kg 97.4 kg General appearance: PRESENT: no acute distress, well-developed, well-nourished Head exam: PRESENT: atraumatic, normocephalic Eye exam: PRESENT: conjunctiva pink, EOMI, PERRLA Ear exam: PRESENT: normal external ear exam Mouth exam: PRESENT: moist, tongue midline Neck exam: PRESENT: full ROM Cardiovascular exam: PRESENT: RRR, +S1, +S2 Pulses: PRESENT: normal dorsalis pedis pul, +2 pedal pulses bilateral Vascular exam: PRESENT: normal capillary refill GI/Abdominal exam: PRESENT: normal bowel sounds, soft Rectal exam: PRESENT: deferred Neurological exam: PRESENT: alert, awake, oriented to person, oriented to place , oriented to time, oriented to situation, CN II-XII grossly intact Psychiatric exam: PRESENT: appropriate affect, normal mood Skin exam: PRESENT: dry, intact, warm Results Laboratory Results: 12/18/17 06:49 12/18/17 06:49 12/18/17 18:03 Total Bilirubin 0.7 AST 15 ALT 21 Alkaline Phosphatase 73 Total Protein 6.5 Albumin 3.4 L 12/17/17 12/17/17 12/17/17 14:27 14:49 14:49 Creatine Kinase 30 CK-MB (CK-2) 0.63 Troponin I 0.105 NT-Pro-B Natriuret Pep 654 12/17/17 12/17/17 12/18/17 19:52 19:52 02:06 Creatine Kinase 26 L 25 L CK-MB (CK-2) 0.65 Troponin I 0.141 NT-Pro-B Natriuret Pep 12/18/17 02:06 Creatine Kinase CK-MB (CK-2) 0.60 Troponin I 0.137 NT-Pro-B Natriuret Pep Impressions: Chest X-Ray 12/17/17 14:23 IMPRESSION: Cardiomegaly without CHF. Assessment & Plan - Diagnosis (1) Non-ST elevated myocardial infarction Is this a current diagnosis for this admission?: Yes Plan: She will continue present treatment regimen (2) Acute coronary syndrome Is this a current diagnosis for this admission?: Yes (3) Morbid obesity Is this a current diagnosis for this admission?: Yes (4) Chronic kidney disease, stage 3 Is this a current diagnosis for this admission?: Yes (5) Severe persistent asthma Qualifiers: Asthma complication type: unspecified Qualified Code(s): J45.50 - Severe persistent asthma, uncomplicated Is this a current diagnosis for this admission?: Yes (6) Type 2 diabetes mellitus Qualifiers: Diabetes mellitus rn long term care insulin use: unspecified rn long term care insulin use status Diabetes mellitus complication status: with unspecified complications Qualified Code(s): E11.8 - Type 2 diabetes mellitus with unspecified complications Is this a current diagnosis for this admission?: Yes
[2017-12-19] MEDS: ATORVASTATIN CALCIUM 80 MG TABLET PO SCH (21:42)
[2017-12-19] MEDS: CLONIDINE HCL 0.1 MG TABLET PO SCH (22:25)
[2017-12-19] MEDS: METOPROLOL SUCCINATE 25 MG TAB.SR.24H PO SCH (22:25)
[2017-12-20] MEDS: ENOXAPARIN SODIUM INJ 100 MG/1 ML DISP.SYRIN SUBCUT SCH ×2 (05:26→17:17)
[2017-12-20] MEDS: ISOSORB DINIT/HYDRALAZINE HCL 20-37.5 MG TABLET PO SCH ×3 (05:26→21:44)
[2017-12-20] MEDS: LANSOPRAZOLE 30 MG TAB.RAP.DR PO SCH (05:26)
--- NOTE | 2017-12-20 06:54 | EKG REPORT ---
SEVERITY:- ABNORMAL ECG - SINUS RHYTHM LEFT BUNDLE BRANCH BLOCK : Confirmed by: Damian Rainey 20-Dec-2017 06:53:33
[2017-12-20] MEDS: BUDESONIDE/FORMOTEROL 160-4.5 MCG 60 PUFF/6 GM MDI IH SCH ×2 (11:04→21:43)
[2017-12-20] MEDS: RANOLAZINE 500 MG TAB.SR.12H PO SCH ×2 (11:06→21:43)
[2017-12-20] MEDS: METOPROLOL SUCCINATE 25 MG TAB.SR.24H PO SCH ×2 (11:06→21:47)
[2017-12-20] MEDS: HYDROCHLOROTHIAZIDE 12.5 MG CAPSULE PO SCH (11:07)
[2017-12-20] MEDS: OXYBUTYNIN CHLORIDE 5 MG TABLET PO SCH (11:07)
[2017-12-20] MEDS: ASPIRIN 81 MG TABLET, ENT COATED PO SCH (11:08)
[2017-12-20] MEDS: PREGABALIN 75 MG CAPSULE PO SCH ×2 (11:09→21:43)
[2017-12-20] MEDS: CLOPIDOGREL BISULFATE 75 MG TABLET PO SCH (11:09)
[2017-12-20] MEDS: METFORMIN HCL 500 MG TABLET PO SCH ×3 (11:09→17:17)
[2017-12-20] MEDS: GENTAMICIN SULFATE 0.3% OPH OINT 3.5 GM OS SCH (11:13)
[2017-12-20] MEDS: PIOGLITAZONE HCL 15 MG TABLET PO SCH (11:15)
[2017-12-20] MEDS: DULOXETINE HCL 30 MG CAPSULE.DR PO SCH (11:28)
[2017-12-20] MEDS: VALSARTAN 160 MG TABLET PO SCH (11:28)
[2017-12-20] MEDS: TOPIRAMATE 100 MG TABLET PO SCH (11:28)
[2017-12-20] MEDS: AMLODIPINE BESYLATE 10 MG TABLET PO SCH (14:51)
[2017-12-20] MEDS: INSULIN DETEMIR 100 UNIT/ML 3 ML PEN SUBCUT SCH (16:33)
--- NOTE | 2017-12-20 20:43 | PDOC PROGRESS REPORT ---
Subjective Progress Note for:: 12/20/17 Subjective:: Patient is seen by the bedside scheduled for stress test in the morning Reason For Visit: CHEST PAIN,CKD STAGE 3,TYPE 2 DIABETES,MULTIPLY Physical Exam Vital Signs: Temp Pulse Resp BP Pulse Ox 97.7 F 68 18 98/40 L 98 12/20/17 15:58 12/20/17 15:58 12/20/17 15:58 12/20/17 15:58 12/20/17 15:58 Intake & Output 12/19/17 12/20/17 12/21/17 06:59 06:59 06:59 Intake Total 655 872 833 Output Total 400 Balance 255 872 833 Weight 97.4 kg 96.8 kg General appearance: PRESENT: no acute distress Eye exam: PRESENT: PERRLA Respiratory exam: PRESENT: clear to auscultation leroy Cardiovascular exam: PRESENT: +S1, +S2 GI/Abdominal exam: PRESENT: soft Neurological exam: PRESENT: alert Results Laboratory Results: 12/18/17 06:49 12/18/17 06:49 12/17/17 12/17/17 12/17/17 14:27 14:49 14:49 Creatine Kinase 30 CK-MB (CK-2) 0.63 Troponin I 0.105 NT-Pro-B Natriuret Pep 654 12/17/17 12/17/17 12/18/17 19:52 19:52 02:06 Creatine Kinase 26 L 25 L CK-MB (CK-2) 0.65 Troponin I 0.141 NT-Pro-B Natriuret Pep 12/18/17 02:06 Creatine Kinase CK-MB (CK-2) 0.60 Troponin I 0.137 NT-Pro-B Natriuret Pep Impressions: Chest X-Ray 12/17/17 14:23 IMPRESSION: Cardiomegaly without CHF. Assessment & Plan - Diagnosis (1) Non-ST elevated myocardial infarction Is this a current diagnosis for this admission?: Yes (2) Acute coronary syndrome Is this a current diagnosis for this admission?: Yes (3) Morbid obesity Is this a current diagnosis for this admission?: Yes (4) Chronic kidney disease, stage 3 Is this a current diagnosis for this admission?: Yes (5) Severe persistent asthma Qualifiers: Asthma complication type: unspecified Qualified Code(s): J45.50 - Severe persistent asthma, uncomplicated Is this a current diagnosis for this admission?: Yes (6) Type 2 diabetes mellitus Qualifiers: Diabetes mellitus nursing home insulin use: unspecified 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
[2017-12-20] MEDS: ATORVASTATIN CALCIUM 80 MG TABLET PO SCH (21:43)
[2017-12-20] MEDS: CLONIDINE HCL 0.1 MG TABLET PO SCH (21:47)
[2017-12-20 22:50] LABS: ABSOLUTE EOSINOPHILS # (AUTO) 0.5 10^3/uL (0.0-0.6); ABSOLUTE MONOCYTES (AUTO) 0.8 10^3/uL (0.1-1.4); ABSOLUTE NEUT (AUTO) 4.4 10^3/uL (1.7-8.2); BASOPHILS % (AUTO) 0.6 % (0-2); EOSINOPHILS % (AUTO) 7.1 % (0-6); HEMATOCRIT 31.6 % (36.0-47.0); HEMOGLOBIN 10.5 g/dL (12.0-15.5); LYMPHOCYTES % (AUTO) 14.5 % (13-45); MEAN CORPUSCULAR HEMOGLOBIN 29.7 pg (27.0-33.4); MEAN CORPUSCULAR VOLUME 90 fl (80-97); MONOCYTES % (AUTO) 11.5 % (3-13); PLATELET COUNT 308 10^3/uL (150-450); RED BLOOD COUNT 3.52 10^6/uL (3.72-5.28); RED CELL DISTRIBUTION WIDTH 16.4 % (11.5-14.0); SEGMENTED NEUTROPHILS % (AUTO) 66.3 % (42-78); TOTAL CELLS COUNTED % (AUTO) 100 %; WHITE BLOOD COUNT 6.7 10^3/uL (4.0-10.5)
[2017-12-21 05:33] LABS: ALANINE AMINOTRANSFERASE 35 U/L (9-52); ALBUMIN 3.3 g/dL (3.5-5.0); ALKALINE PHOSPHATASE 77 U/L (38-126); ANION GAP 15 (5-19); ASPARTATE AMINO TRANSFERASE 24 U/L (14-36); BILIRUBIN,DIRECT 0.3 mg/dL (0.0-0.4); BILIRUBIN,TOTAL 0.7 mg/dL (0.2-1.3); BLOOD UREA NITROGEN 55 mg/dL (7-20); CALCIUM 8.5 mg/dL (8.4-10.2); CARBON DIOXIDE 20 mmol/L (22-30); CHLORIDE 103 mmol/L (98-107); GLUCOSE 92 mg/dL (75-110); POTASSIUM 5.5 mmol/L (3.6-5.0); SODIUM 137.6 mmol/L (137-145); TOTAL PROTEIN 6.4 g/dL (6.3-8.2)
[2017-12-21] MEDS: LANSOPRAZOLE 30 MG TAB.RAP.DR PO SCH (06:20)
[2017-12-21] MEDS: ISOSORB DINIT/HYDRALAZINE HCL 20-37.5 MG TABLET PO SCH ×3 (06:20→21:44)
[2017-12-21] MEDS: ENOXAPARIN SODIUM INJ 100 MG/1 ML DISP.SYRIN SUBCUT SCH (06:29)
[2017-12-21] MEDS: HYDROCHLOROTHIAZIDE 12.5 MG CAPSULE PO SCH (07:58)
[2017-12-21] MEDS ORDERED: (PENDING PHARMACY ID) (Exenatide Microspheres [Bydureon Pen] 2 MG) SQ SCH (10:00)
[2017-12-21] MEDS: RANOLAZINE 500 MG TAB.SR.12H PO SCH ×2 (10:57→21:45)
[2017-12-21] MEDS: AMLODIPINE BESYLATE 10 MG TABLET PO SCH (10:58)
[2017-12-21] MEDS: METOPROLOL SUCCINATE 25 MG TAB.SR.24H PO SCH ×2 (10:59→21:46)
[2017-12-21] MEDS: OXYBUTYNIN CHLORIDE 5 MG TABLET PO SCH (11:00)
[2017-12-21] MEDS: CLOPIDOGREL BISULFATE 75 MG TABLET PO SCH (11:00)
[2017-12-21] MEDS: PREGABALIN 75 MG CAPSULE PO SCH ×2 (11:01→21:44)
[2017-12-21] MEDS: BUDESONIDE/FORMOTEROL 160-4.5 MCG 60 PUFF/6 GM MDI IH SCH ×2 (11:02→21:48)
[2017-12-21] MEDS: GENTAMICIN SULFATE 0.3% OPH OINT 3.5 GM OS SCH (11:05)
[2017-12-21] MEDS: INSULIN DETEMIR 100 UNIT/ML 3 ML PEN SUBCUT SCH (11:06)
[2017-12-21] MEDS ORDERED: BISACODYL 5 MG TABEC PO ONE (12:00)
--- NOTE | 2017-12-21 13:30 | DRAGON STRESS TEST REPORT ---
INTRAVENOUS LEXISCAN CARDIOLITE STRESS TEST USING SINGLE PHOTON EMMISION COMPUTERIZED TOMOGRAPHIC. DATE OF PROCEDURE: December 21, 2017, INDICATION : Chest pain CARDIAC RISK FACTORS: Diabetes, hypertension, dyslipidemia RESTING EKG: Sinus rhythm with left bundle branch block STRESS EKG: No significant ST segment changes noted with LexiScan bolus REASON FOR TERMINATION: Protocol. PROCEDURE REPORT: Baseline heart rate 70 beats per minute with blood pressure of 103/54. Patient had no significant complaints. Patient was bolused with Lexiscan 0.4 mg intravenously followed by saline bolus. Heart rate at 2 minutes post bolus 72 with a blood pressure of 88/54. 3 minutes post bolus heart rate 77 with blood pressure of 123/67. No significant EKG changes were noted. Patient had no significant complaints during the procedure or postprocedure. Patient injected with Aminophyllin 75 mg at 3 minutes or later after Lexiscan bolus. CONCLUSIONS: Normal EKG and hemodynamic response to IV LexiScan. NUCLEAR DATA: At rest the patient was given 14.99 millicuries of technetium 99 sestamibi injected intravenously. As per protocol rest gated SPECT images were obtained. On day of stress test, the patient was given intravenous LexiScan at a dose of 0.4 mg in 5 mL intravenously, followed by flush with normal saline. Subsequently the stress dose of 41.4 millicuries of technetium 99 sestamibi was injected intravenously. As per protocol stress gated images were obtained. NUCLEAR INTERPRETATION: Both raw and processed data were used for interpretation. Visual, qualitative, computer-generated quantitative data was used. There was good myocardial uptake of technetium compound. Motion artifact and soft tissue attenuations were noted. Increased visceral uptake was noted. Decreased uptake was noted in the basal and mid inferior wall, more prominent in the stress imaging but also noted to some extent in the rest imaging. This is indicative of basal and mid inferior wall ischemia with underlying fixed defect. SSS 4, SRS4, SDS 0, tends to indicate mainly fixed defect but feel that it is mild to moderate ischemia involving basal and mid inferior wall with underlying fixed defect. Please note that patient also had significant diaphragmatic attenuation and also visceral uptake and this caused difficulty in interpreting perfusion of the inferior wall. EKG gated imaging showed LV EF at 52 %, rest and stress gated EF similar visually. Mild basal and mid inferior wall hypokinesia noted. T. I D. ratio was 0.98. Lung heart ratio noted to be within normal limits 0.32. No significant extracardiac and abnormal radiotracer activities were noted. RV free wall uptake was noted to be WNL. IMPRESSION: Also refer to comments under nuclear interpretation. Also test results needs to be interpreted in the context of pretest probability. 1. Mild to moderate basal and mid inferior wall ischemia with a smaller underlying fixed defect. Total area involved is small as SSS score is 4 2. Transient ischemic dilatation ratio and lung heart ratio noted to be WNL. 3. EKG gated imaging shows left ventricular ejection fraction of approx. 52 %. Mild basal and mid inferior wall hypokinesia noted 4. Clinical correlation requested as occasionally worse disease or balanced ischemia could be missed. In approximately 10% of the cases Lexiscan may not cause adequate vasodilatory stress. RECOMMENDATIONS: Aggressive risk factor modification and medical management. Further evaluation may be needed if continued symptoms or other high risk indicators are noted on clinical evaluation. Close cardiology follow-up is also recommended. Clinical correlation with echocardiogram derived ejection fraction. Inability to exercise by itself can lead to increased cardiovascular event risks. Consider cardiology consultation and or follow-up if clinically indicated. I am available for cardiology evaluation and consultation if requested by the political researcher, unless patient already has a rubber flap cutter. RAGHU
--- NOTE | 2017-12-21 14:26 | EKG REPORT ---
SEVERITY:- ABNORMAL ECG - SINUS RHYTHM LEFT BUNDLE BRANCH BLOCK : Confirmed by: Damian Rainey 21-Dec-2017 14:26:04
[2017-12-21] MEDS ORDERED: REGADENOSON INJ 0.4 MG/5 ML DISP.SYRIN IV ONE (15:16)
[2017-12-21] MEDS ORDERED: AMINOPHYLLINE INJ/PF 250 MG/10 ML SDV IV ONE (15:16)
[2017-12-21] MEDS ORDERED: AMLODIPINE BESYLATE 10 MG TABLET PO SCH (19:17)
--- NOTE | 2017-12-21 19:18 | PDOC CONSULTATION ---
Consultation Consult Date: 12/21/17 Consult reason:: YUNG on CKD 3. History of Present Illness Admission Date/PCP: 12/17/17 13:03 ÓCSAR NORRIS MD History of Present Illness: IAN FOSTER is a 67 year old female with a h/o complicated DM,Hypertension, CKD 3 with base creatinine of 1.5 was admitted with epigastric pains, progressive abdominal distension, constipation and nausea.No c.o any abdominal pains, fever or chills.The epigastric pain was localised with occasional radiation to the neck and made worse with movements and walking.Also had accompanying dyspnea on exertion but none at rest or orthopnea.Been having poor appetite but has been able to drink water. Reasonable urine output.Labs and meds were reviewed. Past Medical History Cardiac Medical History: Reports: Hypertension-primary Pulmonary Medical History: Reports: Asthma, Sleep Apnea Endocrine Medical History: Reports: Diabetes Mellitus Type 2, Obesity Renal/ Medical History: Reports: Chronic Kidney Disease Stage III Musculoskeltal Medical History: Reports: Arthritis Psychiatric Medical History: Reports: Depression Past Surgical History Past Surgical History: Reports: Tubal Ligation Social History Smoking Status: Never Smoker Frequency of Alcohol Use: None Hx Recreational Drug Use: No Drugs: None Hx Prescription Drug Abuse: No - Advance Directive Resuscitation Status: Full Code Family History Parental Family History Reviewed: Yes - negative for ESRd Children Family History Reviewed: No Sibling(s) Family History Reviewed.: No Medication/Allergy Home Medications: Albuterol Sulfate [Ventolin Hfa] 2 puff IH Q6HP PRN 12/17/17 Amlodipine Besylate [Norvasc 10 mg Tablet] 10 mg PO DAILY 12/17/17 Budesonide/Formoterol Fumarate [Symbicort 160-4.5 Mcg Inhaler] 2 puff IH Q12 Clonidine HCl [Catapres 0.1 mg Tablet] 0.1 mg PO QHS 12/17/17 Duloxetine HCl [Cymbalta] 60 mg PO DAILY 12/17/17 Exenatide Microspheres [Bydureon Pen] 2 mg SQ TU@1000 12/17/17 Hydrochlorothiazide [Hydrodiuril 12.5 mg Capsule] 12.5 mg PO QAM 12/17/17 Insulin Detemir [Levemir Flextouch] 40 unit SQ DAILY 12/17/17 Isosorb Dinit/Hydralazine HCl [Bidil 20-37.5 mg Tablet] 1 tab PO Q8 12/17/17 Metformin HCl [Glucophage 500 mg Tablet] 500 mg PO TID 12/17/17 Metoprolol Succinate [Toprol Xl 50 mg Tab.sr] 50 mg PO DAILY 12/17/17 Omeprazole 40 mg PO DAILY 12/17/17 Oxybutynin Chloride [Oxybutynin Chloride ER] 10 mg PO DAILY 12/17/17 Pioglitazone HCl [Actos] 15 mg PO DAILY 12/17/17 Pregabalin [Lyrica 75 mg Capsule] 75 mg PO Q12 12/17/17 Simvastatin [Zocor 40 mg Tablet] 40 mg PO QHS 12/17/17 Solifenacin Succinate [Vesicare] 10 mg PO DAILY 12/17/17 Topiramate [Topamax] 200 mg PO Q12 12/17/17 Valsartan [Diovan 160 mg Tablet] 160 mg PO DAILY 12/17/17 Allergies/Adverse Reactions: No Known Allergies Allergy (Verified 04/25/13 18:46) Review of Systems Constitutional: PRESENT: fatigue, weakness. ABSENT: fever(s), headache(s), night sweats Cardiovascular: PRESENT: dyspnea on exertion. ABSENT: chest pain, edema, orthropnea Physical Exam Vital Signs: Temp Pulse Resp BP Pulse Ox 97.8 F 66 20 107/46 L 95 12/21/17 16:13 12/21/17 16:13 12/21/17 16:13 12/21/17 16:13 12/21/17 16:13 Intake & Output 12/20/17 12/21/17 12/22/17 06:59 06:59 06:59 Intake Total 872 843 542 Output Total 0 Balance 872 843 542 Weight 96.8 kg 98 kg General appearance: PRESENT: no acute distress Eye exam: PRESENT: conjunctiva pale, EOMI, PERRLA Mouth exam: PRESENT: neck supple. ABSENT: moist Neck exam: ABSENT: meningismus, tenderness, thyromegaly, tracheal deviation Respiratory exam: PRESENT: clear to auscultation leroy. ABSENT: crackles Cardiovascular exam: PRESENT: +S1, +S2 GI/Abdominal exam: PRESENT: ascites - ?, distended, normal bowel sounds, soft. ABSENT: firm, organomegaly, tenderness Extremities exam: ABSENT: pedal edema Neurological exam: PRESENT: alert, awake, oriented to person, oriented to place , oriented to time Psychiatric exam: PRESENT: appropriate affect Skin exam: PRESENT: dry. ABSENT: cyanosis, erythema Results Laboratory Results: 12/20/17 22:45 12/21/17 04:25 12/20/17 12/21/17 22:45 04:25 WBC 6.7 RBC 3.52 L Hgb 10.5 L Hct 31.6 L MCV 90 MCH 29.7 MCHC 33.0 RDW 16.4 H Plt Count 308 Seg Neutrophils % 66.3 Lymphocytes % 14.5 Monocytes % 11.5 Eosinophils % 7.1 H Basophils % 0.6 Absolute Neutrophils 4.4 Absolute Lymphocytes 1.0 Absolute Monocytes 0.8 Absolute Eosinophils 0.5 Absolute Basophils 0.0 Sodium 137.6 Potassium 5.5 H Chloride 103 Carbon Dioxide 20 L Anion Gap 15 BUN 55 H Creatinine 2.98 H Est GFR ( Amer) 19 L Est GFR (Non-Af Amer) 16 L Glucose 92 Calcium 8.5 Total Bilirubin 0.7 AST 24 ALT 35 Alkaline Phosphatase 77 Total Protein 6.4 Albumin 3.3 L 12/17/17 12/17/17 12/17/17 14:27 14:49 14:49 Creatine Kinase 30 CK-MB (CK-2) 0.63 Troponin I 0.105 NT-Pro-B Natriuret Pep 654 12/17/17 12/17/17 12/18/17 19:52 19:52 02:06 Creatine Kinase 26 L 25 L CK-MB (CK-2) 0.65 Troponin I 0.141 NT-Pro-B Natriuret Pep 12/18/17 12/21/17 02:06 04:25 Creatine Kinase CK-MB (CK-2) 0.60 Troponin I 0.137 0.041 NT-Pro-B Natriuret Pep Impressions: Chest X-Ray 12/17/17 14:23 IMPRESSION: Cardiomegaly without CHF. Assessment & Plan - Diagnosis (1) Acute kidney injury Plan: Clinicaly dry.Start IVF.Discussed with treating RN.Meanwhile she she is being evaluated for abdominal distention. Treat constipation with soapsuds enema. She should not ever be given fleets enema given how bad CKD for obvious reasons.Please dose medications for GFR of approximately 25 cc/min. (2) Chronic kidney disease, stage 3 Is this a current diagnosis for this admission?: Yes Plan: Underlying diabetic nephropathy. (3) Hypertension Qualifiers: Hypertension type: essential hypertension Qualified Code(s): I10 - Essential (primary) hypertension Is this a current diagnosis for this admission?: Yes Plan: Uncontrolled. Monitor. 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 (6) Hyperkalemia Plan: Monitor. (7) Acute kidney injury Is this a current diagnosis for this admission?: Yes (8) Chest pain Qualifiers: Chest pain type: unspecified Qualified Code(s): R07.9 - Chest pain, unspecified Is this a current diagnosis for this admission?: Yes Plan: As per Dr. Norris and Dr. Rainey/cardiology.
--- NOTE | 2017-12-21 19:56 | PDOC PROGRESS REPORT ---
Subjective Progress Note for:: 12/21/17 Subjective:: Patient was noted to have epigastric discomfort. Patient noted to have significant abdominal distention. Patient claims she has been constipated for about a week. Troponin I came back significantly lower than before. Chemistry result however shows significant elevation of BUN and creatinine. Patient also noted to have significant renal dysfunction. Patient was noted to have relatively well preserved LVEF on echocardiogram and also on nuclear stress test. In the morning nuclear stress test risk, benefits were discussed in detail. She did undergo nuclear stress test without any complications. EKG showing left bundle branch block. Reason For Visit: CHEST PAIN,CKD STAGE 3,TYPE 2 DIABETES,MULTIPLY Physical Exam Vital Signs: Temp Pulse Resp BP Pulse Ox 97.8 F 66 20 107/46 L 95 12/21/17 16:13 12/21/17 16:13 12/21/17 16:13 12/21/17 16:13 12/21/17 16:13 Intake & Output 12/20/17 12/21/17 12/22/17 06:59 06:59 06:59 Intake Total 872 843 552 Output Total 0 Balance 872 843 552 Weight 96.8 kg 98 kg Exam: GENERAL: well-nourished and in no acute distress. Alert and oriented x3 HEAD: Atraumatic, normocephalic. EYES: Pupils equal round and reactive to light, extraocular movements intact, sclera anicteric, conjunctiva are normal. ENT: TMs normal, nares patent, oropharynx clear without exudates. Moist mucous membranes. No oral ulcerations or bleeding gums noted NECK: supple without lymphadenopathy. Trachea is central. No cervical or axillary lymphadenopathy noted. Carotids are 2+, JVD WNL LUNGS: Respiration seems nonlabored, no significant accessory muscle action noted. Few bibasilar crackles are noted. No wheezes rales or rhonchi noted. No significant dullness noted on percussion. CHEST: Palpation of the chest wall shows no significant chest wall tenderness. 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 ABDOMEN: Soft, significant distention noted with mild firmness but no tenderness except for in the epigastrium, normal to hypoactive bowel sounds. No guarding, no rebound. No rigidity noted . No masses appreciated. EXTREMITIES: Pedal pulses are 1-2+, no calf tenderness noted. No clubbing or cyanosis. negative pedal edema noted NEUROLOGICAL: Focused neurological exam showed no significant neurologic deficit. Normal speech, no focal weakness appreciated. PSYCH: Normal mood, normal affect. Judgment and insight within normal limits. SKIN: No significant ecchymosis, skin is noted to be warm. MUSCULOSKELETAL EXAM: No significant acute joint swelling noted. Results Laboratory Results: 12/20/17 22:45 12/21/17 04:25 12/20/17 12/21/17 22:45 04:25 WBC 6.7 RBC 3.52 L Hgb 10.5 L Hct 31.6 L MCV 90 MCH 29.7 MCHC 33.0 RDW 16.4 H Plt Count 308 Seg Neutrophils % 66.3 Lymphocytes % 14.5 Monocytes % 11.5 Eosinophils % 7.1 H Basophils % 0.6 Absolute Neutrophils 4.4 Absolute Lymphocytes 1.0 Absolute Monocytes 0.8 Absolute Eosinophils 0.5 Absolute Basophils 0.0 Sodium 137.6 Potassium 5.5 H Chloride 103 Carbon Dioxide 20 L Anion Gap 15 BUN 55 H Creatinine 2.98 H Est GFR ( Amer) 19 L Est GFR (Non-Af Amer) 16 L Glucose 92 Calcium 8.5 Total Bilirubin 0.7 AST 24 ALT 35 Alkaline Phosphatase 77 Total Protein 6.4 Albumin 3.3 L 12/17/17 12/17/17 12/17/17 14:27 14:49 14:49 Creatine Kinase 30 CK-MB (CK-2) 0.63 Troponin I 0.105 NT-Pro-B Natriuret Pep 654 12/17/17 12/17/17 12/18/17 19:52 19:52 02:06 Creatine Kinase 26 L 25 L CK-MB (CK-2) 0.65 Troponin I 0.141 NT-Pro-B Natriuret Pep 12/18/17 12/21/17 02:06 04:25 Creatine Kinase CK-MB (CK-2) 0.60 Troponin I 0.137 0.041 NT-Pro-B Natriuret Pep Impressions: Chest X-Ray 12/17/17 14:23 IMPRESSION: Cardiomegaly without CHF. Assessment & Plan - Diagnosis (1) Chest pain Qualifiers: Chest pain type: unspecified Qualified Code(s): R07.9 - Chest pain, unspecified Is this a current diagnosis for this admission?: Yes (2) Hypertension Qualifiers: Hypertension type: essential hypertension Qualified Code(s): I10 - Essential (primary) hypertension Is this a current diagnosis for this admission?: Yes (3) Hyperlipidemia Qualifiers: Hyperlipidemia type: unspecified Qualified Code(s): E78.5 - Hyperlipidemia , unspecified Is this a current diagnosis for this admission?: Yes (4) Obesity Qualifiers: Obesity type: unspecified obesity type Is this a current diagnosis for this admission?: Yes (5) Type 2 diabetes mellitus Qualifiers: Diabetes mellitus intermodal dispatcher insulin use: unspecified intermodal dispatcher insulin use status Diabetes mellitus complication status: with unspecified complications Qualified Code(s): E11.8 - Type 2 diabetes mellitus with unspecified complications Is this a current diagnosis for this admission?: Yes (6) Non-ST elevated myocardial infarction Is this a current diagnosis for this admission?: Yes (7) Chronic kidney disease, stage 3 Is this a current diagnosis for this admission?: Yes - Notes Notes: Chest pain: This was evaluated with a nuclear stress test which showed mild to moderate ischemia with underlying fixed defect in the inferior wall. Total sum score was 4 therefore not a large area of ischemia noted. Based on Patient significant renal dysfunction, it was felt that medical management should be continued. Will consider heart catheterization only if patient has uncontrolled angina or developed some other high risk features. This was explained to the patient in detail. Patient is agreeable with this approach. Chronic kidney disease: Patient now noted to have acute on chronic renal failure. There is significant increase in patient's BUN and creatinine. Nephrology following. Will follow the recommendation. Patient was advised to undergo a renal ultrasound but she declined. Coronary artery disease: Currently stable. Based on nuclear stress test, continued medical therapy is being recommended. Hyperlipidemia: Continue statin therapy. Diabetes: Have stopped metformin and also pioglitazone. Dr. Gonzalez may need to adjust other medications for control of blood sugar. Non-STEMI: Please see discussion above. - Time Time with patient: Greater than 35 minutes - Patient seen multiple times. Nuclear stress test results were reviewed with the patient. 2D echo results reviewed with the patient. Cardiac management plans discussed with the patient. Patient seems to understand the implications. Medications reviewed and adjusted accordingly: Yes
[2017-12-21] MEDS ORDERED: NA PHOS,M-B/NA PHOS,DI-BA (ADULT) 133 ML ENEMA PR PRN (20:00)
[2017-12-21] MEDS ORDERED: BISACODYL 10 MG SUPP.RECT PR ONE (20:00)
--- NOTE | 2017-12-21 21:16 | PDOC PROGRESS REPORT ---
Subjective Progress Note for:: 12/21/17 Subjective:: She was seen by the bedside, she developed acute kidney injury, she underwent cardiolite Lexiscan stress test today, it showed mild reversibility. She is also constipated Reason For Visit: CHEST PAIN,CKD STAGE 3,TYPE 2 DIABETES,MULTIPLY Physical Exam Vital Signs: Temp Pulse Resp BP Pulse Ox 97.8 F 66 20 107/46 L 95 12/21/17 16:13 12/21/17 16:13 12/21/17 16:13 12/21/17 16:13 12/21/17 16:13 Intake & Output 12/20/17 12/21/17 12/22/17 06:59 06:59 06:59 Intake Total 872 843 552 Output Total 0 Balance 872 843 552 Weight 96.8 kg 98 kg General appearance: PRESENT: no acute distress Eye exam: PRESENT: PERRLA Respiratory exam: PRESENT: clear to auscultation leroy Cardiovascular exam: PRESENT: +S1, +S2 GI/Abdominal exam: PRESENT: distended Neurological exam: PRESENT: alert Results Laboratory Results: 12/20/17 22:45 12/21/17 04:25 12/20/17 12/21/17 22:45 04:25 WBC 6.7 RBC 3.52 L Hgb 10.5 L Hct 31.6 L MCV 90 MCH 29.7 MCHC 33.0 RDW 16.4 H Plt Count 308 Seg Neutrophils % 66.3 Lymphocytes % 14.5 Monocytes % 11.5 Eosinophils % 7.1 H Basophils % 0.6 Absolute Neutrophils 4.4 Absolute Lymphocytes 1.0 Absolute Monocytes 0.8 Absolute Eosinophils 0.5 Absolute Basophils 0.0 Sodium 137.6 Potassium 5.5 H Chloride 103 Carbon Dioxide 20 L Anion Gap 15 BUN 55 H Creatinine 2.98 H Est GFR ( Amer) 19 L Est GFR (Non-Af Amer) 16 L Glucose 92 Calcium 8.5 Total Bilirubin 0.7 AST 24 ALT 35 Alkaline Phosphatase 77 Total Protein 6.4 Albumin 3.3 L 12/17/17 12/17/17 12/17/17 14:27 14:49 14:49 Creatine Kinase 30 CK-MB (CK-2) 0.63 Troponin I 0.105 NT-Pro-B Natriuret Pep 654 12/17/17 12/17/17 12/18/17 19:52 19:52 02:06 Creatine Kinase 26 L 25 L CK-MB (CK-2) 0.65 Troponin I 0.141 NT-Pro-B Natriuret Pep 12/18/17 12/21/17 02:06 04:25 Creatine Kinase CK-MB (CK-2) 0.60 Troponin I 0.137 0.041 NT-Pro-B Natriuret Pep Impressions: Chest X-Ray 12/17/17 14:23 IMPRESSION: Cardiomegaly without CHF. Assessment & Plan - Diagnosis (1) Non-ST elevated myocardial infarction Is this a current diagnosis for this admission?: Yes (2) Acute coronary syndrome Is this a current diagnosis for this admission?: Yes (3) Morbid obesity Is this a current diagnosis for this admission?: Yes (4) Chronic kidney disease, stage 3 Is this a current diagnosis for this admission?: Yes (5) Severe persistent asthma Qualifiers: Asthma complication type: unspecified Qualified Code(s): J45.50 - Severe persistent asthma, uncomplicated Is this a current diagnosis for this admission?: Yes (6) Type 2 diabetes mellitus Qualifiers: Diabetes mellitus retirement insulin use: unspecified retirement insulin 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 Plan: Consultation from nephrology, Dr. Nick
[2017-12-21] MEDS: ATORVASTATIN CALCIUM 80 MG TABLET PO SCH (21:45)
[2017-12-21] MEDS: NORMAL SALINE 1000 ML 1,000 ML IV PRN (22:01)
[2017-12-22] MEDS: CLONIDINE HCL 0.1 MG TABLET PO SCH ×2 (05:26→22:13)
[2017-12-22 05:30] LABS: ANION GAP 16 (5-19); BLOOD UREA NITROGEN 59 mg/dL (7-20); CALCIUM 8.6 mg/dL (8.4-10.2); CARBON DIOXIDE 19 mmol/L (22-30); CHLORIDE 103 mmol/L (98-107); GLUCOSE 96 mg/dL (75-110); SODIUM 138.3 mmol/L (137-145)
[2017-12-22 05:31] LABS: POTASSIUM 4.7 mmol/L (3.6-5.0)
[2017-12-22] MEDS: LANSOPRAZOLE 30 MG TAB.RAP.DR PO SCH (05:43)
[2017-12-22] MEDS: ISOSORB DINIT/HYDRALAZINE HCL 20-37.5 MG TABLET PO SCH ×3 (05:43→22:14)
--- NOTE | 2017-12-22 09:22 | RADIOLOGY REPORT (SQ) ---
EXAM DESCRIPTION: U/S RETROPERITON (RENAL/AORTA) COMPLETED DATE/TIME: 12/22/2017 9:12 am REASON FOR STUDY: elevated creatinine COMPARISON: Renal ultrasound 09/15/2016, abdominal ultrasound 12/20/2016 CT abdomen pelvis 12/18/2016 TECHNIQUE: Dynamic and static grayscale images acquired of the kidneys and bladder and recorded on P ACS. Additional selected color Doppler and spectral images recorded. LIMITATIONS: None. FINDINGS: RIGHT KIDNEY: Normal size, 10 cm in length with mild diffuse cortical thinning and increas ed cortical echogenicity from medical renal disease. No solid or suspicious masses. No hydronephrosis . No calcifications. LEFT KIDNEY: Normal size, 10.5 cm in length with mild diffuse cortical thinning and increased cortic al echogenicity from medical renal disease. No solid or suspicious masses. No hydronephrosis. No manuel cifications. BLADDER: No masses. No stones OTHER FINDINGS: No other significant finding. IMPRESSION: No hydronephrosis. Mild increased cortical echogenicity and cortical thinning of both kidneys from medical renal disease TECHNICAL DOCUMENTATION: JOB ID: [id number] [employer]- All Rights Reserved Reading location - IP/workstation name: [email or web address]
[2017-12-22] MEDS: OXYBUTYNIN CHLORIDE 5 MG TABLET PO SCH (10:18)
[2017-12-22] MEDS: RANOLAZINE 500 MG TAB.SR.12H PO SCH ×2 (10:18→22:13)
[2017-12-22] MEDS: METOPROLOL SUCCINATE 25 MG TAB.SR.24H PO SCH ×2 (10:18→22:14)
[2017-12-22] MEDS: CLOPIDOGREL BISULFATE 75 MG TABLET PO SCH (10:18)
[2017-12-22] MEDS: ASPIRIN 81 MG TABLET, ENT COATED PO SCH (10:18)
[2017-12-22] MEDS: PREGABALIN 75 MG CAPSULE PO SCH ×2 (10:19→22:13)
[2017-12-22] MEDS: AMLODIPINE BESYLATE 5 MG TABLET PO SCH (10:19)
[2017-12-22] MEDS: GENTAMICIN SULFATE 0.3% OPH OINT 3.5 GM OS SCH (10:20)
[2017-12-22] MEDS: INSULIN DETEMIR 100 UNIT/ML 3 ML PEN SUBCUT SCH (10:21)
[2017-12-22] MEDS: BUDESONIDE/FORMOTEROL 160-4.5 MCG 60 PUFF/6 GM MDI IH SCH ×2 (10:21→22:14)
--- NOTE | 2017-12-22 16:16 | PDOC PROGRESS REPORT ---
Subjective Progress Note for:: 12/22/17 Subjective:: patient was seen laying in her bed. She was not talking much at the time, but she has been having some bowel movements over the past day. She denies chest pain or SOB at the time of examination. Reason For Visit: CHEST PAIN,CKD STAGE 3,TYPE 2 DIABETES,MULTIPLY Physical Exam Vital Signs: Temp Pulse Resp BP Pulse Ox 97.4 F 70 14 130/49 H 99 12/22/17 11:28 12/22/17 11:28 12/22/17 11:28 12/22/17 11:28 12/22/17 11:28 Intake & Output 12/21/17 12/22/17 12/23/17 06:59 06:59 06:59 Intake Total 843 1302 118 Output Total 0 Balance 843 1302 118 Weight 98 kg 97.9 kg General appearance: PRESENT: no acute distress, well-developed, well-nourished Mouth exam: PRESENT: neck supple. ABSENT: moist Neck exam: PRESENT: full ROM. ABSENT: JVD Respiratory exam: PRESENT: clear to auscultation leroy. ABSENT: accessory muscle use, crackles, rales, rhonchi, wheezes Cardiovascular exam: PRESENT: +S1, +S2 GI/Abdominal exam: PRESENT: ascites, distended, normal bowel sounds, soft. ABSENT: firm, organomegaly, tenderness Extremities exam: ABSENT: pedal edema, tenderness, +1 edema, +2 edema Musculoskeletal exam: PRESENT: normal inspection. ABSENT: tenderness Neurological exam: PRESENT: alert, awake, oriented to person, oriented to place , oriented to time, oriented to situation Skin exam: PRESENT: dry, intact, warm. ABSENT: cyanosis Results Laboratory Results: 12/20/17 22:45 12/22/17 04:45 12/22/17 04:45 Sodium 138.3 Potassium 4.7 Chloride 103 Carbon Dioxide 19 L Anion Gap 16 BUN 59 H Creatinine 2.57 H Est GFR ( Amer) 23 L Est GFR (Non-Af Amer) 19 L Glucose 96 Calcium 8.6 Magnesium 2.6 H 12/17/17 12/17/17 12/17/17 14:27 14:49 14:49 Creatine Kinase 30 CK-MB (CK-2) 0.63 Troponin I 0.105 NT-Pro-B Natriuret Pep 654 12/17/17 12/17/17 12/18/17 19:52 19:52 02:06 Creatine Kinase 26 L 25 L CK-MB (CK-2) 0.65 Troponin I 0.141 NT-Pro-B Natriuret Pep 12/18/17 12/21/17 02:06 04:25 Creatine Kinase CK-MB (CK-2) 0.60 Troponin I 0.137 0.041 NT-Pro-B Natriuret Pep Impressions: Chest X-Ray 12/17/17 14:23 IMPRESSION: Cardiomegaly without CHF. Renal Ultrasound 12/21/17 00:00 IMPRESSION: No hydronephrosis. Mild increased cortical echogenicity and cortical thinning of both kidneys from medical renal disease Assessment & Plan - Diagnosis (1) Acute kidney injury Is this a current diagnosis for this admission?: Yes Plan: looks to still be clinically dry, continue current rate of fluids. Renal ultrasounds did not show any hydronephrosis. Will look to get labs tomorrow and re-evaluate. (2) Chronic kidney disease, stage 3 Is this a current diagnosis for this admission?: Yes Plan: baseline looks to be 1.5 (3) Hyperkalemia Plan: stable (4) Hypertension Qualifiers: Hypertension type: essential hypertension Qualified Code(s): I10 - Essential (primary) hypertension Is this a current diagnosis for this admission?: Yes Plan: looks to be controlled (5) Morbid obesity Is this a current diagnosis for this admission?: Yes (6) Abdominal distention Plan: slowly improving, has had some bowel movements yesterday. (7) Obesity Qualifiers: Obesity type: unspecified obesity type Is this a current diagnosis for this admission?: Yes (8) Type 2 diabetes mellitus Qualifiers: Diabetes mellitus [facility] insulin use: unspecified keno terminal operator insulin use status Diabetes mellitus complication status: with unspecified complications Qualified Code(s): E11.8 - Type 2 diabetes mellitus with unspecified complications Is this a current diagnosis for this admission?: Yes Plan: looks to be controlled (9) Chest pain Qualifiers: Chest pain type: unspecified Qualified Code(s): R07.9 - Chest pain, unspecified Is this a current diagnosis for this admission?: Yes Plan: currently being managed by Dr. Rainey
--- NOTE | 2017-12-22 20:09 | PDOC PROGRESS REPORT ---
Subjective Progress Note for:: 12/22/17 Subjective:: Patient seen by the bedside, she has no new complaints Reason For Visit: CHEST PAIN,CKD STAGE 3,TYPE 2 DIABETES,MULTIPLY Physical Exam Vital Signs: Temp Pulse Resp BP Pulse Ox 97.7 F 68 14 133/54 H 92 12/22/17 16:00 12/22/17 16:00 12/22/17 16:00 12/22/17 16:00 12/22/17 16:00 Intake & Output 12/21/17 12/22/17 12/23/17 06:59 06:59 06:59 Intake Total 843 1302 738 Output Total 0 Balance 843 1302 738 Weight 98 kg 97.9 kg General appearance: PRESENT: no acute distress Eye exam: PRESENT: PERRLA Respiratory exam: PRESENT: clear to auscultation leroy Cardiovascular exam: PRESENT: +S1, +S2 GI/Abdominal exam: PRESENT: soft Results Laboratory Results: 12/20/17 22:45 12/22/17 04:45 12/22/17 04:45 Sodium 138.3 Potassium 4.7 Chloride 103 Carbon Dioxide 19 L Anion Gap 16 BUN 59 H Creatinine 2.57 H Est GFR ( Amer) 23 L Est GFR (Non-Af Amer) 19 L Glucose 96 Calcium 8.6 Magnesium 2.6 H 12/17/17 12/17/17 12/17/17 14:27 14:49 14:49 Creatine Kinase 30 CK-MB (CK-2) 0.63 Troponin I 0.105 NT-Pro-B Natriuret Pep 654 12/17/17 12/17/17 12/18/17 19:52 19:52 02:06 Creatine Kinase 26 L 25 L CK-MB (CK-2) 0.65 Troponin I 0.141 NT-Pro-B Natriuret Pep 12/18/17 12/21/17 02:06 04:25 Creatine Kinase CK-MB (CK-2) 0.60 Troponin I 0.137 0.041 NT-Pro-B Natriuret Pep Impressions: Chest X-Ray 12/17/17 14:23 IMPRESSION: Cardiomegaly without CHF. Renal Ultrasound 12/21/17 00:00 IMPRESSION: No hydronephrosis. Mild increased cortical echogenicity and cortical thinning of both kidneys from medical renal disease Assessment & Plan - Diagnosis (1) Non-ST elevated myocardial infarction Is this a current diagnosis for this admission?: Yes (2) Acute coronary syndrome Is this a current diagnosis for this admission?: Yes (3) Morbid obesity Is this a current diagnosis for this admission?: Yes (4) Chronic kidney disease, stage 3 Is this a current diagnosis for this admission?: Yes (5) Severe persistent asthma Qualifiers: Asthma complication type: unspecified Qualified Code(s): J45.50 - Severe persistent asthma, uncomplicated Is this a current diagnosis for this admission?: Yes (6) Type 2 diabetes mellitus Qualifiers: Diabetes mellitus terminal worker insulin use: unspecified longterm insulin 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
[2017-12-22] MEDS: ATORVASTATIN CALCIUM 80 MG TABLET PO SCH (22:15)
[2017-12-23] MEDS: ISOSORB DINIT/HYDRALAZINE HCL 20-37.5 MG TABLET PO SCH ×3 (05:22→23:42)
[2017-12-23] MEDS: LANSOPRAZOLE 30 MG TAB.RAP.DR PO SCH (05:22)
[2017-12-23 06:43] LABS: ANION GAP 13 (5-19); BLOOD UREA NITROGEN 50 mg/dL (7-20); CALCIUM 8.9 mg/dL (8.4-10.2); CARBON DIOXIDE 19 mmol/L (22-30); CHLORIDE 110 mmol/L (98-107); GLUCOSE 99 mg/dL (75-110); POTASSIUM 4.7 mmol/L (3.6-5.0); SODIUM 141.6 mmol/L (137-145)
[2017-12-23] MEDS: AMLODIPINE BESYLATE 5 MG TABLET PO SCH (10:23)
[2017-12-23] MEDS: CLOPIDOGREL BISULFATE 75 MG TABLET PO SCH (10:23)
[2017-12-23] MEDS: ASPIRIN 81 MG TABLET, ENT COATED PO SCH (10:24)
[2017-12-23] MEDS: RANOLAZINE 500 MG TAB.SR.12H PO SCH ×2 (10:24→23:35)
[2017-12-23] MEDS: PREGABALIN 75 MG CAPSULE PO SCH ×2 (10:25→23:35)
[2017-12-23] MEDS: OXYBUTYNIN CHLORIDE 5 MG TABLET PO SCH (10:25)
[2017-12-23] MEDS: METOPROLOL SUCCINATE 25 MG TAB.SR.24H PO SCH (10:25)
[2017-12-23] MEDS: INSULIN DETEMIR 100 UNIT/ML 3 ML PEN SUBCUT SCH (10:26)
[2017-12-23] MEDS: GENTAMICIN SULFATE 0.3% OPH OINT 3.5 GM OS SCH (10:35)
[2017-12-23] MEDS: BUDESONIDE/FORMOTEROL 160-4.5 MCG 60 PUFF/6 GM MDI IH SCH ×2 (10:40→23:48)
[2017-12-23] MEDS ORDERED: ALBUTEROL SULFATE HFA (90 MCG/PUFF) 200 PUFF/8.5 GM MDI IH PRN (11:27)
--- NOTE | 2017-12-23 13:18 | PDOC PROGRESS REPORT ---
Subjective Progress Note for:: 12/23/17 Subjective:: Patient was seen sitting up on the edge of her bed. At the time she was still complaining of not having a normal bowel movement. she has had a few smaller ones. She denies decreased appetite or abdominal pain. She also denies chest pain, SOB, N/V/D/C. Reason For Visit: CHEST PAIN,CKD STAGE 3,TYPE 2 DIABETES,MULTIPLY Physical Exam Vital Signs: Temp Pulse Resp BP Pulse Ox 97.3 F 60 14 116/47 L 94 12/23/17 11:28 12/23/17 11:28 12/23/17 11:28 12/23/17 11:28 12/23/17 11:28 Intake & Output 12/22/17 12/23/17 12/24/17 06:59 06:59 06:59 Intake Total 1302 1938 355 Output Total 0 Balance 1302 1938 355 Weight 97.9 kg 98.6 kg General appearance: PRESENT: no acute distress, well-developed, well-nourished Mouth exam: PRESENT: moist, neck supple Neck exam: PRESENT: full ROM. ABSENT: JVD Respiratory exam: PRESENT: clear to auscultation leroy. ABSENT: crackles, rales, rhonchi, wheezes Cardiovascular exam: PRESENT: +S1, +S2 GI/Abdominal exam: PRESENT: ascites, distended, normal bowel sounds, soft. ABSENT: firm, organomegaly, tenderness Extremities exam: PRESENT: pedal edema - -trace+. ABSENT: tenderness Musculoskeletal exam: PRESENT: normal inspection. ABSENT: tenderness Neurological exam: PRESENT: alert, awake, oriented to person, oriented to place , oriented to time, oriented to situation Psychiatric exam: PRESENT: appropriate affect, normal mood Skin exam: PRESENT: dry, intact, warm. ABSENT: cyanosis Results Laboratory Results: 12/20/17 22:45 12/23/17 05:18 12/23/17 05:18 Sodium 141.6 Potassium 4.7 Chloride 110 H Carbon Dioxide 19 L Anion Gap 13 BUN 50 H Creatinine 2.24 H Est GFR ( Amer) 26 L Est GFR (Non-Af Amer) 22 L Glucose 99 Calcium 8.9 12/17/17 12/17/17 12/17/17 14:27 14:49 14:49 Creatine Kinase 30 CK-MB (CK-2) 0.63 Troponin I 0.105 NT-Pro-B Natriuret Pep 654 12/17/17 12/17/17 12/18/17 19:52 19:52 02:06 Creatine Kinase 26 L 25 L CK-MB (CK-2) 0.65 Troponin I 0.141 NT-Pro-B Natriuret Pep 12/18/17 12/21/17 02:06 04:25 Creatine Kinase CK-MB (CK-2) 0.60 Troponin I 0.137 0.041 NT-Pro-B Natriuret Pep Impressions: Chest X-Ray 12/17/17 14:23 IMPRESSION: Cardiomegaly without CHF. Renal Ultrasound 12/21/17 00:00 IMPRESSION: No hydronephrosis. Mild increased cortical echogenicity and cortical thinning of both kidneys from medical renal disease Assessment & Plan - Diagnosis (1) Acute kidney injury Is this a current diagnosis for this admission?: Yes Plan: kidney function is improving. She is starting to show some lower extremity edema. Will hold ns for now and reassess tomorrow. (2) Chronic kidney disease, stage 3 Is this a current diagnosis for this admission?: Yes Plan: baseline looks to be 1.5 (3) Hyperkalemia Plan: stable (4) Hypertension Qualifiers: Hypertension type: essential hypertension Qualified Code(s): I10 - Essential (primary) hypertension Is this a current diagnosis for this admission?: Yes Plan: looks to be controlled (5) Morbid obesity Is this a current diagnosis for this admission?: Yes (6) Abdominal distention Plan: getting a KUB (7) Obesity Qualifiers: Obesity type: unspecified obesity type Is this a current diagnosis for this admission?: Yes (8) Type 2 diabetes mellitus Qualifiers: Diabetes mellitus terminal worker insulin use: unspecified terminal worker insulin use status Diabetes mellitus complication status: with unspecified complications Qualified Code(s): E11.8 - Type 2 diabetes mellitus with unspecified complications Is this a current diagnosis for this admission?: Yes (9) Chest pain Qualifiers: Chest pain type: unspecified Qualified Code(s): R07.9 - Chest pain, unspecified Is this a current diagnosis for this admission?: Yes Plan: currently being managed by Dr. Rainey
--- NOTE | 2017-12-23 14:16 | RADIOLOGY REPORT (SQ) ---
EXAM DESCRIPTION: KUB/ABDOMEN (SINGLE VIEW) COMPLETED DATE/TIME: 12/23/2017 1:52 pm REASON FOR STUDY: Possible obstruction COMPARISON: None. NUMBER OF VIEWS: One view. TECHNIQUE: Supine radiographic image of the abdomen acquired. LIMITATIONS: Study is limited somewhat due to the patient's body habitus. FINDINGS: BOWEL GAS PATTERN: Normal bowel gas pattern. No dilated loops. CALCIFICATIONS: No suspicious calcifications. SOFT TISSUES: No gross mass or suggestion of organomegaly. HARDWARE: None in the abdomen. BONES: No acute fracture. No worrisome bone lesions. OTHER: No other significant finding. IMPRESSION: NO RADIOGRAPHIC EVIDENCE FOR ACUTE ABDOMINAL DISEASE. TECHNICAL DOCUMENTATION: JOB ID: [id number] [employer]- All Rights Reserved Reading location - IP/workstation name: [email or web address]
[2017-12-23] MEDS ORDERED: CIPROFLOXACIN HCL 0.3% OPH SOLN 2.5 ML OD ONE (20:00)
--- NOTE | 2017-12-23 22:24 | PDOC PROGRESS REPORT ---
Subjective Progress Note for:: 12/23/17 Subjective:: She was seen by the bedside she has redness of the conjunctiva of the left eye the kidney function is improved some Reason For Visit: CHEST PAIN,CKD STAGE 3,TYPE 2 DIABETES,MULTIPLY Physical Exam Vital Signs: Temp Pulse Resp BP Pulse Ox 97.5 F 58 L 17 151/63 H 94 12/23/17 20:23 12/23/17 20:23 12/23/17 20:23 12/23/17 20:23 12/23/17 20:23 Intake & Output 12/22/17 12/23/17 12/24/17 06:59 06:59 06:59 Intake Total 1302 1938 898 Output Total 0 Balance 1302 1938 898 Weight 97.9 kg 98.6 kg General appearance: PRESENT: no acute distress Eye exam: PRESENT: PERRLA Respiratory exam: PRESENT: clear to auscultation leroy Cardiovascular exam: PRESENT: +S1, +S2 Neurological exam: PRESENT: alert Results Laboratory Results: 12/20/17 22:45 12/23/17 05:18 12/23/17 05:18 Sodium 141.6 Potassium 4.7 Chloride 110 H Carbon Dioxide 19 L Anion Gap 13 BUN 50 H Creatinine 2.24 H Est GFR ( Amer) 26 L Est GFR (Non-Af Amer) 22 L Glucose 99 Calcium 8.9 12/17/17 12/17/17 12/17/17 14:27 14:49 14:49 Creatine Kinase 30 CK-MB (CK-2) 0.63 Troponin I 0.105 NT-Pro-B Natriuret Pep 654 12/17/17 12/17/17 12/18/17 19:52 19:52 02:06 Creatine Kinase 26 L 25 L CK-MB (CK-2) 0.65 Troponin I 0.141 NT-Pro-B Natriuret Pep 12/18/17 12/21/17 02:06 04:25 Creatine Kinase CK-MB (CK-2) 0.60 Troponin I 0.137 0.041 NT-Pro-B Natriuret Pep Impressions: Chest X-Ray 12/17/17 14:23 IMPRESSION: Cardiomegaly without CHF. Renal Ultrasound 12/21/17 00:00 IMPRESSION: No hydronephrosis. Mild increased cortical echogenicity and cortical thinning of both kidneys from medical renal disease KUB X-Ray 12/23/17 00:00 IMPRESSION: NO RADIOGRAPHIC EVIDENCE FOR ACUTE ABDOMINAL DISEASE. Assessment & Plan - Diagnosis (1) Non-ST elevated myocardial infarction Is this a current diagnosis for this admission?: Yes (2) Acute coronary syndrome Is this a current diagnosis for this admission?: Yes (3) Morbid obesity Is this a current diagnosis for this admission?: Yes (4) Chronic kidney disease, stage 3 Is this a current diagnosis for this admission?: Yes (5) Severe persistent asthma Qualifiers: Asthma complication type: unspecified Qualified Code(s): J45.50 - Severe persistent asthma, uncomplicated Is this a current diagnosis for this admission?: Yes (6) Type 2 diabetes mellitus Qualifiers: Diabetes mellitus residential insulin use: unspecified 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
[2017-12-23] MEDS: ATORVASTATIN CALCIUM 80 MG TABLET PO SCH (23:36)
[2017-12-23] MEDS: CLONIDINE HCL 0.1 MG TABLET PO SCH (23:36)
[2017-12-23] MEDS: METOPROLOL SUCCINATE 50 MG TAB.SR.24H PO SCH (23:37)
[2017-12-23] MEDS: CIPROFLOXACIN HCL 0.3% OPH SOLN 2.5 ML OD SCH (23:51)
[2017-12-24 05:58] LABS: ANION GAP 15 (5-19); BLOOD UREA NITROGEN 49 mg/dL (7-20); CALCIUM 8.9 mg/dL (8.4-10.2); CARBON DIOXIDE 20 mmol/L (22-30); CHLORIDE 108 mmol/L (98-107); GLUCOSE 91 mg/dL (75-110); POTASSIUM 4.7 mmol/L (3.6-5.0); SODIUM 143.3 mmol/L (137-145)
[2017-12-24] MEDS: ISOSORB DINIT/HYDRALAZINE HCL 20-37.5 MG TABLET PO SCH ×3 (06:40→21:36)
[2017-12-24] MEDS: LANSOPRAZOLE 30 MG TAB.RAP.DR PO SCH (06:40)
[2017-12-24] MEDS: CIPROFLOXACIN HCL 0.3% OPH SOLN 2.5 ML OD SCH ×3 (08:01→21:27)
[2017-12-24] MEDS: NORMAL SALINE 1000 ML 1,000 ML IV PRN (08:06)
[2017-12-24] MEDS: CLOPIDOGREL BISULFATE 75 MG TABLET PO SCH (10:57)
[2017-12-24] MEDS: METOPROLOL SUCCINATE 50 MG TAB.SR.24H PO SCH ×2 (10:57→21:32)
[2017-12-24] MEDS: AMLODIPINE BESYLATE 5 MG TABLET PO SCH (10:57)
[2017-12-24] MEDS: ASPIRIN 81 MG TABLET, ENT COATED PO SCH (10:58)
[2017-12-24] MEDS: RANOLAZINE 500 MG TAB.SR.12H PO SCH ×2 (10:58→21:35)
[2017-12-24] MEDS: OXYBUTYNIN CHLORIDE 5 MG TABLET PO SCH (10:59)
[2017-12-24] MEDS: PREGABALIN 75 MG CAPSULE PO SCH ×2 (10:59→21:35)
[2017-12-24] MEDS: INSULIN DETEMIR 100 UNIT/ML 3 ML PEN SUBCUT SCH (11:00)
[2017-12-24] MEDS: BUDESONIDE/FORMOTEROL 160-4.5 MCG 60 PUFF/6 GM MDI IH SCH ×2 (11:01→21:28)
[2017-12-24] MEDS ORDERED: POLYETHYLENE GLYCOL 3350 POWDER 17 GM/1 PACKET PO PRN (17:43)
[2017-12-24] MEDS ORDERED: POLYETHYLENE GLYCOL 3350 POWDER 17 GM/1 PACKET PO ONE (17:45)
--- NOTE | 2017-12-24 21:10 | PDOC PROGRESS REPORT ---
Subjective Progress Note for:: 12/24/17 Subjective:: Patient seen by the bedside, she was seen by nephrology, Dr. Nick Reason For Visit: CHEST PAIN,CKD STAGE 3,TYPE 2 DIABETES,MULTIPLY Physical Exam Vital Signs: Temp Pulse Resp BP Pulse Ox 97.8 F 59 L 16 100/45 L 97 12/24/17 16:00 12/24/17 16:00 12/24/17 16:00 12/24/17 16:00 12/24/17 16:00 Intake & Output 12/23/17 12/24/17 12/25/17 06:59 06:59 06:59 Intake Total 1938 1398 1000 Output Total 1350 Balance 1937 1398 -350 Weight 98.6 kg 97.6 kg General appearance: PRESENT: no acute distress, well-developed, well-nourished Head exam: PRESENT: atraumatic, normocephalic Eye exam: PRESENT: conjunctiva pink, EOMI, PERRLA Ear exam: PRESENT: normal external ear exam Mouth exam: PRESENT: moist, tongue midline Neck exam: PRESENT: full ROM Respiratory exam: PRESENT: clear to auscultation leroy Cardiovascular exam: PRESENT: RRR, +S1, +S2 Pulses: PRESENT: normal dorsalis pedis pul, +2 pedal pulses bilateral Vascular exam: PRESENT: normal capillary refill GI/Abdominal exam: PRESENT: normal bowel sounds, soft Rectal exam: PRESENT: deferred Neurological exam: PRESENT: alert. ABSENT: motor sensory deficit Psychiatric exam: PRESENT: appropriate affect, normal mood. ABSENT: homicidal ideation, suicidal ideation Skin exam: PRESENT: dry, intact, warm Results Laboratory Results: 12/20/17 22:45 12/24/17 04:51 12/24/17 04:51 Sodium 143.3 Potassium 4.7 Chloride 108 H Carbon Dioxide 20 L Anion Gap 15 BUN 49 H Creatinine 2.21 H Est GFR ( Amer) 27 L Est GFR (Non-Af Amer) 22 L Glucose 91 Calcium 8.9 12/17/17 12/17/17 12/17/17 14:27 14:49 14:49 Creatine Kinase 30 CK-MB (CK-2) 0.63 Troponin I 0.105 NT-Pro-B Natriuret Pep 654 12/17/17 12/17/17 12/18/17 19:52 19:52 02:06 Creatine Kinase 26 L 25 L CK-MB (CK-2) 0.65 Troponin I 0.141 NT-Pro-B Natriuret Pep 12/18/17 12/21/17 02:06 04:25 Creatine Kinase CK-MB (CK-2) 0.60 Troponin I 0.137 0.041 NT-Pro-B Natriuret Pep Impressions: Chest X-Ray 12/17/17 14:23 IMPRESSION: Cardiomegaly without CHF. Renal Ultrasound 12/21/17 00:00 IMPRESSION: No hydronephrosis. Mild increased cortical echogenicity and cortical thinning of both kidneys from medical renal disease KUB X-Ray 12/23/17 00:00 IMPRESSION: NO RADIOGRAPHIC EVIDENCE FOR ACUTE ABDOMINAL DISEASE. Assessment & Plan - Diagnosis (1) Non-ST elevated myocardial infarction Is this a current diagnosis for this admission?: Yes (2) Acute coronary syndrome Is this a current diagnosis for this admission?: Yes (3) Morbid obesity Is this a current diagnosis for this admission?: Yes (4) Chronic kidney disease, stage 3 Is this a current diagnosis for this admission?: Yes (5) Severe persistent asthma Qualifiers: Asthma complication type: unspecified Qualified Code(s): J45.50 - Severe persistent asthma, uncomplicated Is this a current diagnosis for this admission?: Yes (6) Type 2 diabetes mellitus Qualifiers: Diabetes mellitus ocean transportation intermediary insulin use: unspecified retirement insulin 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
[2017-12-24] MEDS: ATORVASTATIN CALCIUM 80 MG TABLET PO SCH (21:35)
[2017-12-24] MEDS: CLONIDINE HCL 0.1 MG TABLET PO SCH (21:36)
[2017-12-25] MEDS: CIPROFLOXACIN HCL 0.3% OPH SOLN 2.5 ML OD SCH ×4 (00:24→17:34)
[2017-12-25 06:01] LABS: ANION GAP 13 (5-19); BLOOD UREA NITROGEN 44 mg/dL (7-20); CALCIUM 8.9 mg/dL (8.4-10.2); CARBON DIOXIDE 20 mmol/L (22-30); CHLORIDE 112 mmol/L (98-107); GLUCOSE 81 mg/dL (75-110); POTASSIUM 4.8 mmol/L (3.6-5.0); SODIUM 145.1 mmol/L (137-145)
[2017-12-25] MEDS: ISOSORB DINIT/HYDRALAZINE HCL 20-37.5 MG TABLET PO SCH ×3 (06:58→21:12)
[2017-12-25] MEDS: LANSOPRAZOLE 30 MG TAB.RAP.DR PO SCH (06:59)
[2017-12-25] MEDS: NORMAL SALINE 1000 ML 1,000 ML IV PRN (07:01)
[2017-12-25] MEDS: ASPIRIN 81 MG TABLET, ENT COATED PO SCH (09:32)
[2017-12-25] MEDS: CLOPIDOGREL BISULFATE 75 MG TABLET PO SCH (09:32)
[2017-12-25] MEDS: INSULIN DETEMIR 100 UNIT/ML 3 ML PEN SUBCUT SCH (09:32)
[2017-12-25] MEDS: AMLODIPINE BESYLATE 5 MG TABLET PO SCH (09:32)
[2017-12-25] MEDS: PREGABALIN 75 MG CAPSULE PO SCH ×2 (09:32→21:12)
[2017-12-25] MEDS: RANOLAZINE 500 MG TAB.SR.12H PO SCH ×2 (09:33→21:12)
[2017-12-25] MEDS: OXYBUTYNIN CHLORIDE 5 MG TABLET PO SCH (09:33)
[2017-12-25] MEDS: METOPROLOL SUCCINATE 50 MG TAB.SR.24H PO SCH ×2 (09:33→21:12)
[2017-12-25] MEDS: BUDESONIDE/FORMOTEROL 160-4.5 MCG 60 PUFF/6 GM MDI IH SCH ×2 (09:34→21:12)
--- NOTE | 2017-12-25 12:24 | PDOC PROGRESS REPORT ---
Subjective Progress Note for:: 12/22/17 Subjective:: Patient was noted to have epigastric discomfort. Patient noted to have significant abdominal distention. Patient claims she has been constipated for about a week. Chemistry result however shows significant elevation of BUN and creatinine. Patient did complete a stress test. Based on nuclear stress test results, medical management is being recommended especially in view of significant deterioration in her renal functions. Reason For Visit: CHEST PAIN,CKD STAGE 3,TYPE 2 DIABETES,MULTIPLY Physical Exam Vital Signs: Temp Pulse Resp BP Pulse Ox 97.7 F 68 14 133/54 H 92 12/22/17 16:00 12/22/17 16:00 12/22/17 16:00 12/22/17 16:00 12/22/17 16:00 Intake & Output 12/21/17 12/22/17 12/23/17 06:59 06:59 06:59 Intake Total 843 1302 738 Output Total 0 Balance 843 1302 738 Weight 98 kg 97.9 kg Exam: GENERAL: well-nourished and in no acute distress. Alert and oriented x3 HEAD: Atraumatic, normocephalic. EYES: Pupils equal round and reactive to light, extraocular movements intact, sclera anicteric, conjunctiva are normal. ENT: TMs normal, nares patent, oropharynx clear without exudates. Moist mucous membranes. No oral ulcerations or bleeding gums noted NECK: supple without lymphadenopathy. Trachea is central. No cervical or axillary lymphadenopathy noted. Carotids are 2+, JVD WNL LUNGS: Respiration seems nonlabored, no significant accessory muscle action noted. Breath sounds clear to auscultation bilaterally and equal noted. No wheezes rales or rhonchi noted. No significant dullness noted on percussion. CHEST: Palpation of the chest wall shows no significant chest wall tenderness. 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 ABDOMEN: Soft but distended, no significant tenderness appreciated, normoactive bowel sounds. No guarding, no rebound. No rigidity noted . No masses appreciated. EXTREMITIES: Pedal pulses are 1-2+, no calf tenderness noted. No clubbing or cyanosis. negative pedal edema noted NEUROLOGICAL: Focused neurological exam showed no significant neurologic deficit. Normal speech, no focal weakness appreciated. PSYCH: Normal mood, normal affect. Judgment and insight within normal limits. SKIN: No significant ecchymosis, skin is noted to be warm. MUSCULOSKELETAL EXAM: No significant acute joint swelling noted. Results Laboratory Results: 12/20/17 22:45 12/22/17 04:45 12/22/17 04:45 Sodium 138.3 Potassium 4.7 Chloride 103 Carbon Dioxide 19 L Anion Gap 16 BUN 59 H Creatinine 2.57 H Est GFR ( Amer) 23 L Est GFR (Non-Af Amer) 19 L Glucose 96 Calcium 8.6 Magnesium 2.6 H 12/17/17 12/17/17 12/17/17 14:27 14:49 14:49 Creatine Kinase 30 CK-MB (CK-2) 0.63 Troponin I 0.105 NT-Pro-B Natriuret Pep 654 12/17/17 12/17/17 12/18/17 19:52 19:52 02:06 Creatine Kinase 26 L 25 L CK-MB (CK-2) 0.65 Troponin I 0.141 NT-Pro-B Natriuret Pep 12/18/17 12/21/17 02:06 04:25 Creatine Kinase CK-MB (CK-2) 0.60 Troponin I 0.137 0.041 NT-Pro-B Natriuret Pep Impressions: Chest X-Ray 12/17/17 14:23 IMPRESSION: Cardiomegaly without CHF. Renal Ultrasound 12/21/17 00:00 IMPRESSION: No hydronephrosis. Mild increased cortical echogenicity and cortical thinning of both kidneys from medical renal disease Assessment & Plan - Diagnosis (1) Chest pain Qualifiers: Chest pain type: unspecified Qualified Code(s): R07.9 - Chest pain, unspecified Is this a current diagnosis for this admission?: Yes (2) Hypertension Qualifiers: Hypertension type: essential hypertension Qualified Code(s): I10 - Essential (primary) hypertension Is this a current diagnosis for this admission?: Yes (3) Hyperlipidemia Qualifiers: Hyperlipidemia type: unspecified Qualified Code(s): E78.5 - Hyperlipidemia , unspecified Is this a current diagnosis for this admission?: Yes (4) Obesity Qualifiers: Obesity type: unspecified obesity type Is this a current diagnosis for this admission?: Yes (5) Type 2 diabetes mellitus Qualifiers: Diabetes mellitus long winder tender insulin use: unspecified prison insulin use status Diabetes mellitus complication status: with unspecified complications Qualified Code(s): E11.8 - Type 2 diabetes mellitus with unspecified complications Is this a current diagnosis for this admission?: Yes (6) Non-ST elevated myocardial infarction Is this a current diagnosis for this admission?: Yes (7) Chronic kidney disease, stage 3 Is this a current diagnosis for this admission?: Yes (8) Acute on chronic renal failure Qualifiers: Acute renal failure type: unspecified Chronic kidney disease stage: stage 3 (moderate) Qualified Code(s): N17.9 - Acute kidney failure, unspecified; N18.3 - Chronic kidney disease, stage 3 (moderate); N18.3 - Chronic kidney disease, stage 3 (moderate) Is this a current diagnosis for this admission?: Yes - Notes Notes: Nuclear stress test results were again reviewed with the patient. Renal function test results reviewed. Currently medical management is being recommended. Please see changes in medications performed. Chest pain: This was evaluated with a nuclear stress test which showed mild to moderate ischemia with underlying fixed defect in the inferior wall. Total sum score was 4 therefore not a large area of ischemia noted. Based on Patient significant renal dysfunction, it was felt that medical management should be continued. Will consider heart catheterization only if patient has uncontrolled angina or developed some other high risk features. This was explained to the patient in detail. Patient is agreeable with this approach. Chronic kidney disease: Patient now noted to have acute on chronic renal failure. There is significant increase in patient's BUN and creatinine. Nephrology following. Will follow the recommendation. Patient was advised to undergo a renal ultrasound but she declined. Coronary artery disease: Currently stable. Based on nuclear stress test, continued medical therapy is being recommended. Hyperlipidemia: Continue statin therapy. Diabetes: Have stopped metformin and also pioglitazone. Dr. Gonzalez may need to adjust other medications for control of blood sugar. Non-STEMI: Please see discussion above. - Time Time with patient: Greater than 35 minutes - More than 50% of the time spent coordinating care, discussing management plans with involved caregivers. Management plans discussed with involved personnels. Medical decision making was of moderate to high complexity, patient's has multiple comorbidities. Medications reviewed and adjusted accordingly: Yes
--- NOTE | 2017-12-25 12:30 | PDOC PROGRESS REPORT ---
Subjective Progress Note for:: 12/23/17 Subjective:: Patient still showing abdominal distention and constipation. Patient claims that she is ambulating without any discomfort in the chest. Patient also noted to have significant renal dysfunction. Patient now in the hospital for renal failure. Patient was noted to have relatively well preserved LVEF on echocardiogram and also on nuclear stress test. Nuclear stress test showed fixed and transient perfusion defect but patient seeming to be doing reasonably well on medical management. Reason For Visit: CHEST PAIN,CKD STAGE 3,TYPE 2 DIABETES,MULTIPLY Physical Exam Vital Signs: Temp Pulse Resp BP Pulse Ox 97.5 F 58 L 18 107/42 L 97 12/23/17 16:00 12/23/17 16:00 12/23/17 16:00 12/23/17 16:00 12/23/17 16:00 Intake & Output 12/22/17 12/23/17 12/24/17 06:59 06:59 06:59 Intake Total 1302 1938 898 Output Total 0 Balance 1302 1938 898 Weight 97.9 kg 98.6 kg Exam: GENERAL: well-nourished and in no acute distress. Alert and oriented x3 HEAD: Atraumatic, normocephalic. EYES: Pupils equal round and reactive to light, extraocular movements intact, sclera anicteric, conjunctiva are normal. ENT: TMs normal, nares patent, oropharynx clear without exudates. Moist mucous membranes. No oral ulcerations or bleeding gums noted NECK: supple without lymphadenopathy. Trachea is central. No cervical or axillary lymphadenopathy noted. Carotids are 2+, JVD WNL LUNGS: Respiration seems nonlabored, no significant accessory muscle action noted. Breath sounds clear to auscultation bilaterally and equal noted. No wheezes rales or rhonchi noted. No significant dullness noted on percussion. CHEST: Palpation of the chest wall shows no significant chest wall tenderness. 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 ABDOMEN: Soft, abdominal distention noted. No significant tenderness appreciated, normoactive bowel sounds. No guarding, no rebound. No rigidity noted . No masses appreciated. EXTREMITIES: Pedal pulses are 1-2+, no calf tenderness noted. No clubbing or cyanosis. negative pedal edema noted NEUROLOGICAL: Focused neurological exam showed no significant neurologic deficit. Normal speech, no focal weakness appreciated. PSYCH: Normal mood, normal affect. Judgment and insight within normal limits. SKIN: No significant ecchymosis, skin is noted to be warm. MUSCULOSKELETAL EXAM: No significant acute joint swelling noted. Results Laboratory Results: 12/20/17 22:45 12/23/17 05:18 12/23/17 05:18 Sodium 141.6 Potassium 4.7 Chloride 110 H Carbon Dioxide 19 L Anion Gap 13 BUN 50 H Creatinine 2.24 H Est GFR ( Amer) 26 L Est GFR (Non-Af Amer) 22 L Glucose 99 Calcium 8.9 12/17/17 12/17/17 12/17/17 14:27 14:49 14:49 Creatine Kinase 30 CK-MB (CK-2) 0.63 Troponin I 0.105 NT-Pro-B Natriuret Pep 654 12/17/17 12/17/17 12/18/17 19:52 19:52 02:06 Creatine Kinase 26 L 25 L CK-MB (CK-2) 0.65 Troponin I 0.141 NT-Pro-B Natriuret Pep 12/18/17 12/21/17 02:06 04:25 Creatine Kinase CK-MB (CK-2) 0.60 Troponin I 0.137 0.041 NT-Pro-B Natriuret Pep EKG Comments: Shows sinus rhythm with left bundle branch block pattern Impressions: Chest X-Ray 12/17/17 14:23 IMPRESSION: Cardiomegaly without CHF. Renal Ultrasound 12/21/17 00:00 IMPRESSION: No hydronephrosis. Mild increased cortical echogenicity and cortical thinning of both kidneys from medical renal disease KUB X-Ray 12/23/17 00:00 IMPRESSION: NO RADIOGRAPHIC EVIDENCE FOR ACUTE ABDOMINAL DISEASE. Assessment & Plan - Diagnosis (1) Chest pain Qualifiers: Chest pain type: unspecified Qualified Code(s): R07.9 - Chest pain, unspecified Is this a current diagnosis for this admission?: Yes (2) Hypertension Qualifiers: Hypertension type: essential hypertension Qualified Code(s): I10 - Essential (primary) hypertension Is this a current diagnosis for this admission?: Yes (3) Hyperlipidemia Qualifiers: Hyperlipidemia type: unspecified Qualified Code(s): E78.5 - Hyperlipidemia , unspecified Is this a current diagnosis for this admission?: Yes (4) Obesity Qualifiers: Obesity type: unspecified obesity type Is this a current diagnosis for this admission?: Yes (5) Type 2 diabetes mellitus Qualifiers: Diabetes mellitus snf insulin use: unspecified snf insulin use status Diabetes mellitus complication status: with unspecified complications Qualified Code(s): E11.8 - Type 2 diabetes mellitus with unspecified complications Is this a current diagnosis for this admission?: Yes (6) Non-ST elevated myocardial infarction Is this a current diagnosis for this admission?: Yes (7) Chronic kidney disease, stage 3 Is this a current diagnosis for this admission?: Yes (8) Acute on chronic renal failure Qualifiers: Acute renal failure type: unspecified Chronic kidney disease stage: stage 3 (moderate) Qualified Code(s): N17.9 - Acute kidney failure, unspecified; N18.3 - Chronic kidney disease, stage 3 (moderate); N18.3 - Chronic kidney disease, stage 3 (moderate) Is this a current diagnosis for this admission?: Yes - Notes Notes: Chest pain: No further recurrences of chest pain. Patient reasonably stable on medical management. This was evaluated with a nuclear stress test which showed mild to moderate ischemia with underlying fixed defect in the inferior wall. Total sum score was 4 therefore not a large area of ischemia noted. Based on Patient significant renal dysfunction, it was felt that medical management should be continued. Will consider heart catheterization only if patient has uncontrolled angina or developed some other high risk features. This was explained to the patient in detail. Patient is agreeable with this approach. Patient advised to report any recurrence of chest pain. Chronic kidney disease: Patient now noted to have acute on chronic renal failure. Patient was noted to have significant rise in BUN and creatinine but these are not coming down. Nephrology following. Will follow the recommendation. Coronary artery disease: Currently stable. Based on nuclear stress test, continued medical therapy is being recommended. Hyperlipidemia: Continue statin therapy. 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 Non-STEMI: Please see discussion above. Obesity: Chronic problem. Patient will benefit from aggressive weight loss. - Time Time with patient: Greater than 35 minutes - CODE STATUS was discussed, patient remains full code. More than 50% of the time spent coordinating care, discussing management plans with involved caregivers. Management plans discussed with involved personnels. Medical decision making was of moderate to high complexity, patient's has multiple comorbidities. Medications reviewed and adjusted accordingly: Yes
--- NOTE | 2017-12-25 12:34 | PDOC PROGRESS REPORT ---
Subjective Progress Note for:: 12/24/17 Subjective:: Remains in the hospital because of renal dysfunction and general debility. Patient now has a [place] catheter. Patient is getting somewhat disheartened but denies any chest pains. She is denying any shortness of breath. Patient still has abdominal distention but claims that this is getting better. Reason For Visit: CHEST PAIN,CKD STAGE 3,TYPE 2 DIABETES,MULTIPLY Physical Exam Vital Signs: Temp Pulse Resp BP Pulse Ox 97.8 F 65 16 116/98 H 94 12/24/17 19:47 12/24/17 19:47 12/24/17 19:47 12/24/17 19:47 12/24/17 19:47 Intake & Output 12/23/17 12/24/17 12/25/17 06:59 06:59 06:59 Intake Total 1938 1398 1000 Output Total 1350 Balance 8 1398 -350 Weight 98.6 kg 97.6 kg Exam: GENERAL: well-nourished and in no acute distress. Alert and oriented x3 HEAD: Atraumatic, normocephalic. EYES: Pupils equal round and reactive to light, extraocular movements intact, sclera anicteric, conjunctiva are normal. ENT: TMs normal, nares patent, oropharynx clear without exudates. Moist mucous membranes. No oral ulcerations or bleeding gums noted NECK: supple without lymphadenopathy. Trachea is central. No cervical or axillary lymphadenopathy noted. Carotids are 2+, JVD WNL LUNGS: Respiration seems nonlabored, no significant accessory muscle action noted. Breath sounds clear to auscultation bilaterally and equal noted. No wheezes rales or rhonchi noted. No significant dullness noted on percussion. CHEST: Palpation of the chest wall shows no significant chest wall tenderness. 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 ABDOMEN: Soft, mild abdominal distention noted. No significant tenderness appreciated, normoactive bowel sounds. No guarding, no rebound. No rigidity noted . No masses appreciated. EXTREMITIES: Pedal pulses are 1-2+, no calf tenderness noted. No clubbing or cyanosis. Trace to 1+ pedal edema noted NEUROLOGICAL: Focused neurological exam showed no significant neurologic deficit. Normal speech, no focal weakness appreciated. PSYCH: Normal mood, normal affect. Judgment and insight within normal limits. SKIN: No significant ecchymosis, skin is noted to be warm. MUSCULOSKELETAL EXAM: No significant acute joint swelling noted. Results Laboratory Results: 12/20/17 22:45 12/24/17 04:51 12/24/17 04:51 Sodium 143.3 Potassium 4.7 Chloride 108 H Carbon Dioxide 20 L Anion Gap 15 BUN 49 H Creatinine 2.21 H Est GFR ( Amer) 27 L Est GFR (Non-Af Amer) 22 L Glucose 91 Calcium 8.9 12/17/17 12/17/17 12/17/17 14:27 14:49 14:49 Creatine Kinase 30 CK-MB (CK-2) 0.63 Troponin I 0.105 NT-Pro-B Natriuret Pep 654 12/17/17 12/17/17 12/18/17 19:52 19:52 02:06 Creatine Kinase 26 L 25 L CK-MB (CK-2) 0.65 Troponin I 0.141 NT-Pro-B Natriuret Pep 12/18/17 12/21/17 02:06 04:25 Creatine Kinase CK-MB (CK-2) 0.60 Troponin I 0.137 0.041 NT-Pro-B Natriuret Pep EKG Comments: Telemetry shows sinus rhythm without any sustained tachycardia or bradycardia. Impressions: Chest X-Ray 12/17/17 14:23 IMPRESSION: Cardiomegaly without CHF. Renal Ultrasound 12/21/17 00:00 IMPRESSION: No hydronephrosis. Mild increased cortical echogenicity and cortical thinning of both kidneys from medical renal disease KUB X-Ray 12/23/17 00:00 IMPRESSION: NO RADIOGRAPHIC EVIDENCE FOR ACUTE ABDOMINAL DISEASE. Assessment & Plan - Diagnosis (1) Chest pain Qualifiers: Chest pain type: unspecified Qualified Code(s): R07.9 - Chest pain, unspecified Is this a current diagnosis for this admission?: Yes (2) Hypertension Qualifiers: Hypertension type: essential hypertension Qualified Code(s): I10 - Essential (primary) hypertension Is this a current diagnosis for this admission?: Yes (3) Hyperlipidemia Qualifiers: Hyperlipidemia type: unspecified Qualified Code(s): E78.5 - Hyperlipidemia , unspecified Is this a current diagnosis for this admission?: Yes (4) Obesity Qualifiers: Obesity type: unspecified obesity type Is this a current diagnosis for this admission?: Yes (5) Type 2 diabetes mellitus Qualifiers: 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 insulin use 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 Diabetes mellitus complication status: with unspecified complications Qualified Code(s): E11.8 - Type 2 diabetes mellitus with unspecified complications Is this a current diagnosis for this admission?: Yes (6) Non-ST elevated myocardial infarction Is this a current diagnosis for this admission?: Yes (7) Chronic kidney disease, stage 3 Is this a current diagnosis for this admission?: Yes (8) Acute on chronic renal failure Qualifiers: Acute renal failure type: unspecified Chronic kidney disease stage: stage 3 (moderate) Qualified Code(s): N17.9 - Acute kidney failure, unspecified; N18.3 - Chronic kidney disease, stage 3 (moderate); N18.3 - Chronic kidney disease, stage 3 (moderate) Is this a current diagnosis for this admission?: Yes - Notes Notes: Chest pain: There has been no recurrences. This was evaluated with a nuclear stress test which showed mild to moderate ischemia with underlying fixed defect in the inferior wall. Total sum score was 4 therefore not a large area of ischemia noted. Based on Patient significant renal dysfunction, it was felt that medical management should be continued. Will consider heart catheterization only if patient has uncontrolled angina or developed some other high risk features. This was explained to the patient in detail. Patient is agreeable with this approach. Chronic kidney disease: Patient now noted to have acute on chronic renal failure. Renal functions are now noted to be slowly improving. Coronary artery disease: Currently stable. Based on nuclear stress test, continued medical therapy is being recommended. Hyperlipidemia: Continue statin therapy. Diabetes: Have stopped metformin and also pioglitazone. Dr. Gonzalez may need to adjust other medications for control of blood sugar. Non-STEMI: Please see discussion above. Will sign off. Please reconsult if needed. As noted above, if patient develops recurrent chest pain, consider tertiary care transfer for heart catheterization. - Time Time with patient: Greater than 35 minutes - More than 50% of the time spent coordinating care, discussing management plans with involved caregivers. Management plans discussed with involved personnels. Medical decision making was of moderate to high complexity, patient's has multiple comorbidities. Medications reviewed and adjusted accordingly: Yes
[2017-12-25] MEDS ORDERED: BISACODYL 10 MG SUPP.RECT PR ONE (16:34)
--- NOTE | 2017-12-25 16:34 | PDOC PROGRESS REPORT ---
Subjective Progress Note for:: 12/25/17 Subjective:: Patient is very concern about constipation. No abdominal pain, nausea or vomiting. No chest pain or difficulty with breathing. No fever or chills. Reason For Visit: CHEST PAIN,CKD STAGE 3,TYPE 2 DIABETES,MULTIPLY Physical Exam Vital Signs: Temp Pulse Resp BP Pulse Ox 97.6 F 62 16 116/54 L 98 12/25/17 11:42 12/25/17 11:42 12/25/17 07:28 12/25/17 11:42 12/25/17 11:42 Intake & Output 12/24/17 12/25/17 12/26/17 06:59 06:59 06:59 Intake Total 1398 1955 350 Output Total 2850 400 Balance 1398 -895 -50 Weight 97.6 kg 96.8 kg 96.8 kg General appearance: PRESENT: no acute distress, obese Head exam: PRESENT: atraumatic, normocephalic Mouth exam: PRESENT: moist Respiratory exam: PRESENT: clear to auscultation leroy Cardiovascular exam: PRESENT: RRR. ABSENT: diastolic murmur, rubs, systolic murmur Vascular exam: PRESENT: normal capillary refill. ABSENT: pallor GI/Abdominal exam: PRESENT: distended, normal bowel sounds. ABSENT: tenderness Extremities exam: ABSENT: pedal edema Neurological exam: PRESENT: alert, awake, oriented to person, oriented to place , oriented to time, oriented to situation, CN II-XII grossly intact. ABSENT: motor sensory deficit Psychiatric exam: PRESENT: appropriate affect, normal mood. ABSENT: homicidal ideation, suicidal ideation Skin exam: PRESENT: dry, warm Results Laboratory Results: 12/20/17 22:45 12/25/17 05:09 12/25/17 05:09 Sodium 145.1 H Potassium 4.8 Chloride 112 H Carbon Dioxide 20 L Anion Gap 13 BUN 44 H Creatinine 1.97 H Est GFR ( Amer) 31 L Est GFR (Non-Af Amer) 25 L Glucose 81 Calcium 8.9 12/17/17 12/17/17 12/17/17 14:27 14:49 14:49 Creatine Kinase 30 CK-MB (CK-2) 0.63 Troponin I 0.105 NT-Pro-B Natriuret Pep 654 04/27/18 04/27/18 04/28/18 19:52 19:52 02:06 Creatine Kinase 26 L 25 L CK-MB (CK-2) 0.65 Troponin I 0.141 NT-Pro-B Natriuret Pep 12/18/17 12/21/17 02:06 04:25 Creatine Kinase CK-MB (CK-2) 0.60 Troponin I 0.137 0.041 NT-Pro-B Natriuret Pep Impressions: Chest X-Ray 12/17/17 14:23 IMPRESSION: Cardiomegaly without CHF. Renal Ultrasound 12/21/17 00:00 IMPRESSION: No hydronephrosis. Mild increased cortical echogenicity and cortical thinning of both kidneys from medical renal disease KUB X-Ray 12/23/17 00:00 IMPRESSION: NO RADIOGRAPHIC EVIDENCE FOR ACUTE ABDOMINAL DISEASE. Assessment & Plan - Diagnosis (1) Non-ST elevated myocardial infarction Is this a current diagnosis for this admission?: Yes Plan: See covering attending physician orders. (2) Diabetes mellitus type 2 in obese Is this a current diagnosis for this admission?: Yes Plan: See covering attending physician orders. (3) Hypertension Qualifiers: Hypertension type: essential hypertension Qualified Code(s): I10 - Essential (primary) hypertension Is this a current diagnosis for this admission?: Yes Plan: See covering attending physician orders. (4) Chronic kidney disease, stage 3 Is this a current diagnosis for this admission?: Yes (5) Constipation Qualifiers: Constipation type: unspecified constipation type Qualified Code(s): K59.00 - Constipation, unspecified Is this a current diagnosis for this admission?: Yes Plan: See covering attending physician orders. - Time Time Spent with patient: 25-34 minutes Medications reviewed and adjusted accordingly: Yes Anticipated discharge: Home with Homehealth Within: Other - Inpatient Certification Based on my medical assessment, after consideration of the patient's comorbidities, presenting symptoms, or acuity I expect that the services needed warrant INPATIENT care.: Yes I certify that my determination is in accordance with my understanding of Medicare's requirements for reasonable and necessary INPATIENT services [42 CFR 412.3e].: Yes Medical Necessity: Need Close Monitoring Due to Risk of Patient Decompensation, Need For Continuous Telemetry Monitoring, Risk of Complication if Not Cared For in Hospital Post Hospital Care: D/C Clinic Office Coordinator Documentation - Plan Summary Plan Summary: See covering attending physician orders.
[2017-12-25] MEDS: CLONIDINE HCL 0.1 MG TABLET PO SCH (21:12)
[2017-12-25] MEDS: ATORVASTATIN CALCIUM 80 MG TABLET PO SCH (21:12)
[2017-12-25] MEDS: INSULIN LISPRO 100 UNIT/ML 3 ML VIAL SUBCUT PRN (22:24)
[2017-12-26] MEDS: CIPROFLOXACIN HCL 0.3% OPH SOLN 2.5 ML OD SCH ×4 (00:33→18:00)
[2017-12-26] MEDS: NORMAL SALINE 1000 ML 1,000 ML IV PRN (04:28)
[2017-12-26 05:10] LABS: ANION GAP 14 (5-19); BLOOD UREA NITROGEN 47 mg/dL (7-20); CALCIUM 8.5 mg/dL (8.4-10.2); CARBON DIOXIDE 18 mmol/L (22-30); CHLORIDE 109 mmol/L (98-107); GLUCOSE 147 mg/dL (75-110); POTASSIUM 5.6 mmol/L (3.6-5.0); SODIUM 141.2 mmol/L (137-145)
[2017-12-26] MEDS: ISOSORB DINIT/HYDRALAZINE HCL 20-37.5 MG TABLET PO SCH ×3 (06:14→21:27)
[2017-12-26] MEDS: LANSOPRAZOLE 30 MG TAB.RAP.DR PO SCH (06:14)
[2017-12-26] MEDS: CLOPIDOGREL BISULFATE 75 MG TABLET PO SCH (10:07)
[2017-12-26] MEDS: ASPIRIN 81 MG TABLET, ENT COATED PO SCH (10:07)
[2017-12-26] MEDS: OXYBUTYNIN CHLORIDE 5 MG TABLET PO SCH (10:07)
[2017-12-26] MEDS: PREGABALIN 75 MG CAPSULE PO SCH ×2 (10:07→21:27)
[2017-12-26] MEDS: AMLODIPINE BESYLATE 5 MG TABLET PO SCH (10:07)
[2017-12-26] MEDS: RANOLAZINE 500 MG TAB.SR.12H PO SCH ×2 (10:07→21:27)
[2017-12-26] MEDS: METOPROLOL SUCCINATE 50 MG TAB.SR.24H PO SCH ×2 (10:08→21:27)
[2017-12-26] MEDS: BUDESONIDE/FORMOTEROL 160-4.5 MCG 60 PUFF/6 GM MDI IH SCH ×2 (10:08→21:27)
--- NOTE | 2017-12-26 15:14 | PDOC PROGRESS REPORT ---
Subjective Progress Note for:: 12/26/17 Subjective:: Patient denied any chest pain or difficulty with breathing. No bowel movement since last clinical evaluation. She refused recommended Dulcolax suppository. No abdominal pain, nausea or vomiting. No fever or chills. There is concern about her perception of quality care due to her medicaid coverage and ethnicity ! jamie had extensive discussion with er at bedside to mitigate this issues. She refer her insulin administration at night time as she does at home. Reason For Visit: CHEST PAIN,CKD STAGE 3,TYPE 2 DIABETES,MULTIPLY Physical Exam Vital Signs: Temp Pulse Resp BP Pulse Ox 96.9 F L 64 16 135/48 H 95 12/26/17 11:39 12/26/17 11:39 12/26/17 11:39 12/26/17 11:39 12/26/17 11:39 Intake & Output 12/25/17 12/26/17 12/27/17 06:59 06:59 06:59 Intake Total 1955 3250 600 Output Total 2850 2175 Balance -895 1075 600 Weight 96.8 kg 98.4 kg Physical Exam: General appearance: PRESENT: no acute distress, obese Head exam: PRESENT: atraumatic, normocephalic Mouth exam: PRESENT: moist Respiratory exam: PRESENT: clear to auscultation leroy Cardiovascular exam: PRESENT: RRR. ABSENT: diastolic murmur, rubs, systolic murmur Vascular exam: PRESENT: normal capillary refill. ABSENT: pallor GI/Abdominal exam: PRESENT: distended, normal bowel sounds. ABSENT: tenderness Extremities exam: ABSENT: pedal edema Neurological exam: PRESENT: alert, awake, oriented to person, oriented to place , oriented to time, oriented to situation, CN II-XII grossly intact. ABSENT: motor sensory deficit Psychiatric exam: PRESENT: appropriate affect, normal mood. ABSENT: homicidal ideation, suicidal ideation Skin exam: PRESENT: dry, warm Results Laboratory Results: 12/20/17 22:45 12/26/17 04:19 12/26/17 04:19 Sodium 141.2 Potassium 5.6 H Chloride 109 H Carbon Dioxide 18 L Anion Gap 14 BUN 47 H Creatinine 2.21 H Est GFR ( Amer) 27 L Est GFR (Non-Af Amer) 22 L Glucose 147 H Calcium 8.5 12/17/17 12/17/17 12/17/17 14:27 14:49 14:49 Creatine Kinase 30 CK-MB (CK-2) 0.63 Troponin I 0.105 NT-Pro-B Natriuret Pep 654 12/17/17 12/17/17 12/18/17 19:52 19:52 02:06 Creatine Kinase 26 L 25 L CK-MB (CK-2) 0.65 Troponin I 0.141 NT-Pro-B Natriuret Pep 12/18/17 12/21/17 02:06 04:25 Creatine Kinase CK-MB (CK-2) 0.60 Troponin I 0.137 0.041 NT-Pro-B Natriuret Pep Impressions: Chest X-Ray 12/17/17 14:23 IMPRESSION: Cardiomegaly without CHF. Renal Ultrasound 12/21/17 00:00 IMPRESSION: No hydronephrosis. Mild increased cortical echogenicity and cortical thinning of both kidneys from medical renal disease KUB X-Ray 12/23/17 00:00 IMPRESSION: NO RADIOGRAPHIC EVIDENCE FOR ACUTE ABDOMINAL DISEASE. Assessment & Plan - Diagnosis (1) Non-ST elevated myocardial infarction Is this a current diagnosis for this admission?: Yes (2) Diabetes mellitus type 2 in obese Is this a current diagnosis for this admission?: Yes (3) Hypertension Qualifiers: Hypertension type: essential hypertension Qualified Code(s): I10 - Essential (primary) hypertension Is this a current diagnosis for this admission?: Yes (4) Chronic kidney disease, stage 3 Is this a current diagnosis for this admission?: Yes (5) Constipation Qualifiers: Constipation type: unspecified constipation type Qualified Code(s): K59.00 - Constipation, unspecified Is this a current diagnosis for this admission?: Yes (6) Hyperkalemia, diminished renal excretion Is this a current diagnosis for this admission?: Yes Plan: Start on low dose Kayexalate 15 gm p.o x 1 dose and low potassium restriction on her diet. - Time Time Spent with patient: 25-34 minutes Medications reviewed and adjusted accordingly: Yes Anticipated discharge: Home with Homehealth Within: Other - Inpatient Certification Based on my medical assessment, after consideration of the patient's comorbidities, presenting symptoms, or acuity I expect that the services needed warrant INPATIENT care.: Yes I certify that my determination is in accordance with my understanding of Medicare's requirements for reasonable and necessary INPATIENT services [42 CFR 412.3e].: Yes Medical Necessity: Need Close Monitoring Due to Risk of Patient Decompensation, Need For IV Fluids, Need For Continuous Telemetry Monitoring, Risk of Complication if Not Cared For in Hospital Post Hospital Care: D/C Press Supervisor Documentation - Plan Summary Plan Summary: See covering attending physician orders.
[2017-12-26] MEDS ORDERED: SODIUM POLYSTYRENE SULFONATE 15 GM/60 ML PO ONE (16:00)
[2017-12-26] MEDS: INSULIN DETEMIR 100 UNIT/ML 3 ML PEN SUBCUT SCH (19:00)
[2017-12-26] MEDS ORDERED: BISACODYL 10 MG SUPP.RECT PR ONE (21:00)
[2017-12-26] MEDS: ATORVASTATIN CALCIUM 80 MG TABLET PO SCH (21:27)
[2017-12-26] MEDS: CLONIDINE HCL 0.1 MG TABLET PO SCH (21:27)
[2017-12-26] MEDS: INSULIN LISPRO 100 UNIT/ML 3 ML VIAL SUBCUT PRN (21:27)
[2017-12-27] MEDS: CIPROFLOXACIN HCL 0.3% OPH SOLN 2.5 ML OD SCH ×4 (00:47→18:42)
[2017-12-27] MEDS: NORMAL SALINE 1000 ML 1,000 ML IV PRN (01:26)
[2017-12-27] MEDS: ISOSORB DINIT/HYDRALAZINE HCL 20-37.5 MG TABLET PO SCH ×2 (06:14→14:54)
[2017-12-27] MEDS: LANSOPRAZOLE 30 MG TAB.RAP.DR PO SCH (06:23)
[2017-12-27] MEDS ORDERED: ACETAMINOPHEN 325 MG TABLET PO PRN (06:32)
[2017-12-27] MEDS ORDERED: FLUCONAZOLE 100 MG TABLET PO ONE (10:00)
[2017-12-27] MEDS: RANOLAZINE 500 MG TAB.SR.12H PO SCH (10:10)
[2017-12-27] MEDS: OXYBUTYNIN CHLORIDE 5 MG TABLET PO SCH (10:10)
[2017-12-27] MEDS: PREGABALIN 75 MG CAPSULE PO SCH (10:10)
[2017-12-27] MEDS: AMLODIPINE BESYLATE 5 MG TABLET PO SCH (10:11)
[2017-12-27] MEDS: ASPIRIN 81 MG TABLET, ENT COATED PO SCH (10:11)
[2017-12-27] MEDS: CLOPIDOGREL BISULFATE 75 MG TABLET PO SCH (10:11)
[2017-12-27] MEDS: METOPROLOL SUCCINATE 50 MG TAB.SR.24H PO SCH (10:11)
[2017-12-27] MEDS: BUDESONIDE/FORMOTEROL 160-4.5 MCG 60 PUFF/6 GM MDI IH SCH (10:12)
[2017-12-27 13:35] LABS: ANION GAP 13 (5-19); BLOOD UREA NITROGEN 33 mg/dL (7-20); CARBON DIOXIDE 21 mmol/L (22-30); CHLORIDE 112 mmol/L (98-107); GLUCOSE 95 mg/dL (75-110); POTASSIUM 5.4 mmol/L (3.6-5.0); SODIUM 145.8 mmol/L (137-145)
--- NOTE | 2017-12-27 14:48 | PDOC PROGRESS REPORT ---
Subjective Progress Note for:: 12/27/17 Subjective:: Patient was sitting up in bed wanting to go home. Currently she has saul catheter in and produced 4.6L yesterday. At the time she denied any SOB, chest pain, n/v/d/c. Reason For Visit: CHEST PAIN,CKD STAGE 3,TYPE 2 DIABETES,MULTIPLY Physical Exam Vital Signs: Temp Pulse Resp BP Pulse Ox 98.3 F 70 16 141/76 H 99 12/27/17 13:27 12/27/17 13:27 12/27/17 13:27 12/27/17 13:27 12/27/17 13:27 Intake & Output 12/26/17 12/27/17 12/28/17 06:59 06:59 06:59 Intake Total 3250 2891 Output Total 2175 4525 Balance 1075 -1634 Weight 98.4 kg 97.9 kg General appearance: PRESENT: no acute distress, well-developed, well-nourished Mouth exam: PRESENT: moist, neck supple Neck exam: PRESENT: full ROM. ABSENT: JVD Respiratory exam: PRESENT: clear to auscultation leroy. ABSENT: accessory muscle use, crackles, rales, rhonchi, wheezes Cardiovascular exam: PRESENT: +S1, +S2 GI/Abdominal exam: PRESENT: ascites, distended, normal bowel sounds, soft. ABSENT: firm, organomegaly, tenderness Extremities exam: ABSENT: pedal edema, tenderness, +1 edema, +2 edema Musculoskeletal exam: PRESENT: normal inspection. ABSENT: tenderness Neurological exam: PRESENT: alert, awake, oriented to person, oriented to place , oriented to time, oriented to situation Psychiatric exam: PRESENT: appropriate affect, normal mood Skin exam: PRESENT: dry, intact, warm. ABSENT: cyanosis Results Laboratory Results: 12/20/17 22:45 12/27/17 12:40 12/27/17 12:40 Sodium 145.8 H Potassium 5.4 H Chloride 112 H Carbon Dioxide 21 L Anion Gap 13 BUN 33 H Creatinine 1.62 H Est GFR ( Amer) 38 L Est GFR (Non-Af Amer) 32 L Glucose 95 Calcium 9.0 12/17/17 12/17/17 12/17/17 14:27 14:49 14:49 Creatine Kinase 30 CK-MB (CK-2) 0.63 Troponin I 0.105 NT-Pro-B Natriuret Pep 654 12/17/17 12/17/17 12/18/17 19:52 19:52 02:06 Creatine Kinase 26 L 25 L CK-MB (CK-2) 0.65 Troponin I 0.141 NT-Pro-B Natriuret Pep 12/18/17 12/21/17 02:06 04:25 Creatine Kinase CK-MB (CK-2) 0.60 Troponin I 0.137 0.041 NT-Pro-B Natriuret Pep Impressions: Chest X-Ray 12/17/17 14:23 IMPRESSION: Cardiomegaly without CHF. Renal Ultrasound 12/21/17 00:00 IMPRESSION: No hydronephrosis. Mild increased cortical echogenicity and cortical thinning of both kidneys from medical renal disease KUB X-Ray 12/23/17 00:00 IMPRESSION: NO RADIOGRAPHIC EVIDENCE FOR ACUTE ABDOMINAL DISEASE. Assessment & Plan - Diagnosis (1) Acute kidney injury Is this a current diagnosis for this admission?: Yes Plan: looks to have resolved, currently at baseline. At this point and time the patient is stable for discharge. She should be discharged with the saul catheter in and follow up with a urologist. Hold all diuretics on discharge. Also would like her to follow up with Dr. Nick in 10 to 14 days. (2) Chronic kidney disease, stage 3 Is this a current diagnosis for this admission?: Yes Plan: at baseline (3) Hyperkalemia Plan: discussed a low potassium diet with the patient. 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 Nick
[2017-12-27 19:02] VITALS: BP 133/54
--- NOTE | 2017-12-27 20:37 | PDOC DISCHARGE SUMMARY ---
General - Admit/Disc Date/PCP Admission Date/Primary Care Provider: 12/17/17 13:03 ÓSCAR NORRIS MD Discharge Date: 12/27/17 - Discharge Diagnosis (1) Non-ST elevated myocardial infarction Is this a current diagnosis for this admission?: Yes (2) Acute coronary syndrome Is this a current diagnosis for this admission?: Yes (3) Morbid obesity Is this a current diagnosis for this admission?: Yes (4) Chronic kidney disease, stage 3 Is this a current diagnosis for this admission?: Yes (5) Severe persistent asthma Is this a current diagnosis for this admission?: Yes (6) Type 2 diabetes mellitus Is this a current diagnosis for this admission?: Yes (7) Acute kidney injury Is this a current diagnosis for this admission?: Yes (8) Urinary retention Is this a current diagnosis for this admission?: Yes - Additional Information Resuscitation Status: Full Code Discharge Diet: Cardiac, Diabetic Discharge Activity: Activity As Tolerated Prescriptions: Atorvastatin Calcium [Lipitor 80 mg Tablet] 80 mg PO QHS #90 tablet Aspirin 81 mg PO DAILY PRN #90 pkg PRN Reason: Clopidogrel Bisulfate [Plavix 75 mg Tablet] 75 mg PO DAILY #90 tablet Ranolazine [Ranexa 500 mg Tab.sr] 500 mg PO Q12 #60 tab.sr.12h Home Medications: Albuterol Sulfate [Ventolin Hfa] 2 puff IH Q6HP PRN 12/17/17 Amlodipine Besylate [Norvasc 10 mg Tablet] 10 mg PO DAILY 12/17/17 Budesonide/Formoterol Fumarate [Symbicort 160-4.5 Mcg Inhaler] 2 puff IH Q12 Clonidine HCl [Catapres 0.1 mg Tablet] 0.1 mg PO QHS 12/17/17 Duloxetine HCl [Cymbalta] 60 mg PO DAILY 12/17/17 Exenatide Microspheres [Bydureon Pen] 2 mg SQ TU@1000 12/17/17 Hydrochlorothiazide [Hydrodiuril 12.5 mg Capsule] 12.5 mg PO QAM 12/17/17 Insulin Detemir [Levemir Flextouch] 40 unit SQ DAILY 12/17/17 Isosorb Dinit/Hydralazine HCl [Bidil 20-37.5 mg Tablet] 1 tab PO Q8 12/17/17 Metformin HCl [Glucophage 500 mg Tablet] 500 mg PO TID 12/17/17 Metoprolol Succinate [Toprol Xl 50 mg Tab.sr] 50 mg PO DAILY 12/17/17 Omeprazole 40 mg PO DAILY 12/17/17 Pioglitazone HCl [Actos] 15 mg PO DAILY 12/17/17 Pregabalin [Lyrica 75 mg Capsule] 75 mg PO Q12 12/17/17 Topiramate [Topamax] 200 mg PO Q12 12/17/17 Valsartan [Diovan 160 mg Tablet] 160 mg PO DAILY 12/17/17 Aspirin 81 mg PO DAILY PRN #90 pkg 12/27/17 Atorvastatin Calcium [Lipitor 80 mg Tablet] 80 mg PO QHS #90 tablet 12/27/17 Clopidogrel Bisulfate [Plavix 75 mg Tablet] 75 mg PO DAILY #90 tablet 12/27/17 Ranolazine [Ranexa 500 mg Tab.sr] 500 mg PO Q12 #60 tab.sr.12h 12/27/17 History of Present Illness History of Present Illness: IAN FOSTER is a 67 year old female, She has multiple risk factors for ischemic heart disease including type 2 diabetes mellitus, chronic kidney disease stage III, obesity, sedentary lifestyle, hyperlipidemia she came to the office for evaluation of chest pain, the pain is substernal it is exertional in nature. In the office the blood pressure recorded was elevated, the 12-lead EKG was done in the office, it showed sinus rhythm left bundle branch block, she was given a dose of baby aspirin and sublingual nitro in the office and she was admitted directly from the office to the hospital for further evaluation. The initial troponin was elevated in the acute myocardial infarction range Hospital Course Hospital Course: She was admitted for the management of acute non-ST elevated OH she ruled in for OH she was treated with antiplatelet, Plavix and aspirin, Lovenox subcut She was seen by Dr. Rainey cardiology she underwent Cardiolite Lexiscan stress test which was positive for mild reversibility, the banquet director does not see indication at this time for cardiac cauterization she was managed medically no indication for coronary intervention. She also developed acute kidney injury felt to be prerenal kidney ultrasound of the kidney was done there was no hydronephrosis . she was treated with IV fluid with improvement in the kidney function, she was seen by cutting machine fixer Dr. Nick. She also had urinary retention requiring Pabon catheterization.The Pabon catheter was left in place Physical Exam Vital Signs: Temp Pulse Resp BP Pulse Ox 98.3 F 68 16 133/54 H 99 12/27/17 19:00 12/27/17 19:00 12/27/17 19:00 12/27/17 19:00 12/27/17 19:00 Intake & Output 12/26/17 12/27/17 12/28/17 06:59 06:59 06:59 Intake Total 3250 2891 1300 Output Total 2175 4525 2100 Balance 4764 -2800 -800 Weight 98.4 kg 97.9 kg General appearance: PRESENT: no acute distress, well-developed, well-nourished Head exam: PRESENT: atraumatic, normocephalic Eye exam: PRESENT: conjunctiva pink, EOMI, PERRLA Ear exam: PRESENT: normal external ear exam Mouth exam: PRESENT: moist, tongue midline Neck exam: PRESENT: full ROM Respiratory exam: PRESENT: clear to auscultation leroy Cardiovascular exam: PRESENT: RRR, +S1, +S2 Vascular exam: PRESENT: normal capillary refill GI/Abdominal exam: PRESENT: normal bowel sounds, soft Rectal exam: PRESENT: deferred Neurological exam: PRESENT: alert, awake, oriented to person, oriented to place , oriented to time, oriented to situation, CN II-XII grossly intact Psychiatric exam: PRESENT: appropriate affect, normal mood Skin exam: PRESENT: dry, intact, warm Results Laboratory Results: 12/20/17 22:45 12/27/17 12:40 12/27/17 12:40 Sodium 145.8 H Potassium 5.4 H Chloride 112 H Carbon Dioxide 21 L Anion Gap 13 BUN 33 H Creatinine 1.62 H Est GFR ( Amer) 38 L Est GFR (Non-Af Amer) 32 L Glucose 95 Calcium 9.0 12/17/17 12/17/17 12/17/17 14:27 14:49 14:49 Creatine Kinase 30 CK-MB (CK-2) 0.63 Troponin I 0.105 NT-Pro-B Natriuret Pep 654 12/17/17 12/17/17 12/18/17 19:52 19:52 02:06 Creatine Kinase 26 L 25 L CK-MB (CK-2) 0.65 Troponin I 0.141 NT-Pro-B Natriuret Pep 12/18/17 12/21/17 02:06 04:25 Creatine Kinase CK-MB (CK-2) 0.60 Troponin I 0.137 0.041 NT-Pro-B Natriuret Pep Impressions: Chest X-Ray 12/17/17 14:23 IMPRESSION: Cardiomegaly without CHF. Renal Ultrasound 12/21/17 00:00 IMPRESSION: No hydronephrosis. Mild increased cortical echogenicity and cortical thinning of both kidneys from medical renal disease KUB X-Ray 12/23/17 00:00 IMPRESSION: NO RADIOGRAPHIC EVIDENCE FOR ACUTE ABDOMINAL DISEASE. Qualifiers - * PATIENT BEING DISCHARGED WITH ANY OF THE FOLLOWING DIAGNOSIS: OH OH Pt being discharged on Aspirin therapy?: Yes OH Pt being discharged on Statins?: Yes OH Pt discharged ACEI/ARBS?: Yes HF Pt being discharged on ACEI for LVEF less than 40%?: Yes
[2017-12-27] MEDS ORDERED: INSULIN DETEMIR 100 UNIT/ML 3 ML PEN SUBCUT SCH (22:00)
== END 2017-12-27 20:06 | disposition home or self-care (01) | DRG 281 ==
LOC: 3N 13:03 → 3W 12-18 16:03
PROVIDERS: ADMIT Internal Medicine; ATTEND Internal Medicine
DX: I21.4 Non-ST elevation (NSTEMI) myocardial infarction (principal); N17.9 Acute kidney failure, unspecified; Z68.39 Body mass index [BMI] 39.0-39.9, adult; I12.9 Hypertensive chronic kidney disease with stage 1 through stage 4 chronic kidney disease, or unspecified chronic kidney disease; E11.22 Type 2 diabetes mellitus with diabetic chronic kidney disease; N18.3 Chronic kidney disease, stage 3 (moderate); K59.00 Constipation, unspecified; I25.9 Chronic ischemic heart disease, unspecified; E78.5 Hyperlipidemia, unspecified; E87.5 Hyperkalemia; E66.01 Morbid (severe) obesity due to excess calories; J45.50 Severe persistent asthma, uncomplicated; R33.9 Retention of urine, unspecified; I44.7 Left bundle-branch block, unspecified; F32.9 Major depressive disorder, single episode, unspecified; Z98.51 Tubal ligation status; Z83.3 Family history of diabetes mellitus; Z79.4 Long term (current) use of insulin; Z79.899 Other long term (current) drug therapy; Z79.51 Long term (current) use of inhaled steroids
CPT/HCPCS: 36415; 71046; 74018; 76770; 78452; 80048; 80053; 80076; 81001; 82550; 82553; 82962; 83036; 83735; 83880; 84484; 85025; 85027; 85379; 93005; 93010; 93017; 93306; 94640; A9500; J0280; J1650; J1815; J2785; J3490; J7030; J7620; Q9969

== ENCOUNTER 2017-12-29 08:45 | Emergency (ER) | payer MEDICARE, MEDICAID ==
--- NOTE | 2017-12-29 09:26 | ER Document Report ---
ED GI/ - General Chief Complaint: Urinary Problem Stated Complaint: CATHETER ISSUE Time Seen by Provider: 12/29/17 09:11 Notes: The patient is a 67-year-old female, PMHx COPD (on home 2L O2) who presents with problems with her Saul catheter. She had a Saul placed during her hospitalization 4 days ago due to urinary retention issues. She was hospitalized for workup of chest pain. She has an appointment with urology in 8 days. Patient said that she did not have any urinary in her Saul bag overnight and she was having some suprapubic pain. However, her daughter drove her to the ER and she noticed a large amount of yellow urine in the bag upon arrival to the ER. She is now only having mild suprapubic pain. Patient also started on a antifungal cream for vaginal yeast infection. She denies fevers, flank pain, nausea, vomiting, hematuria or back pain. TRAVEL OUTSIDE OF THE [place] IN LAST 30 DAYS: No - Related Data Allergies/Adverse Reactions: No Known Allergies Allergy (Verified 12/29/17 08:54) Past Medical History - General Information source: Patient - Social History Smoking Status: Unknown if Ever Smoked Family History: DM - Past Medical History Cardiac Medical History: Reports: Hx Hypertension Pulmonary Medical History: Reports: Hx Asthma, Hx Sleep Apnea Endocrine Medical History: Reports: Hx Diabetes Mellitus Type 2 Renal/ Medical History: Denies: Hx Peritoneal Dialysis Musculoskeltal Medical History: Reports Hx Arthritis Psychiatric Medical History: Reports: Hx Depression Past Surgical History: Reports: Hx Tubal Ligation - Immunizations Hx Diphtheria, Pertussis, Tetanus Vaccination: Yes Hx Pneumococcal Vaccination: 06/16/14 Review of Systems - Review of Systems Notes: REVIEW OF SYSTEMS: CONSTITUTIONAL: -fevers, -chills EENT: -eye pain, -difficulty swallowing, -nasal congestion CARDIOVASCULAR: -chest pain, -syncope. RESPIRATORY: -cough, -SOB GASTROINTESTINAL: -abdominal pain, -nausea, -vomiting, -diarrhea GENITOURINARY: +urinary retention, -dysuria, -hematuria MUSCULOSKELETAL: -back pain, -neck pain SKIN: -rash or skin lesions. HEMATOLOGIC: -easy bruising or bleeding. LYMPHATIC: -swollen, enlarged glands. NEUROLOGICAL: -altered mental status or loss of consciousness, -headache, - neurologic symptoms PSYCHIATRIC: -anxiety, -depression. ALL OTHER SYSTEMS REVIEWED AND NEGATIVE. Physical Exam - Vital signs Vitals: Temp Pulse Resp BP Pulse Ox 98.2 F 69 16 136/61 H 90 L 12/29/17 09:02 12/29/17 09:02 12/29/17 09:02 12/29/17 09:02 12/29/17 09:02 - Notes Notes: PHYSICAL EXAMINATION: GENERAL: Well-appearing, well-nourished and in no acute distress. HEAD: Atraumatic, normocephalic. EYES: Pupils equal round and reactive to light, extraocular movements intact, sclera anicteric, conjunctiva are normal. ENT: nares patent, oropharynx clear without exudates. Moist mucous membranes. NECK: Normal range of motion, supple without lymphadenopathy LUNGS: Breath sounds clear to auscultation bilaterally and equal. No wheezes rales or rhonchi. HEART: Regular rate and rhythm without murmurs ABDOMEN: Soft, mild surprapubic tenderness, normoactive bowel sounds. No guarding, no rebound. No masses appreciated. : Saul in place with 800 mL yellow urine in saul bag. EXTREMITIES: Normal range of motion, no pitting or edema. No cyanosis. NEUROLOGICAL: Cranial nerves grossly intact. Normal speech. Normal sensory and motor exams. PSYCH: Normal mood, normal affect. SKIN: Warm, Dry, normal turgor, no rashes or lesions noted. Course - Re-evaluation Re-evalutation: Patient appears well and her Saul catheter is draining yellow urine at this time. Due to her suprapubic tenderness, will check a urinalysis and culture to assess for UTI. She has an appointment with urology in 8 days and instructed her to keep the Saul in place with strict return precautions. 12/29/17 10:44 RN flushed and irrigated Saul with some sediment return. Urinalysis showed 38 WBCs with moderate leuk esterase. This is most likely normal with an indwelling Saul catheter, but she is having suprapubic pain and painful urination, so will start her on Keflex, although she understands that this may not be a urinary tract infection. Culture sent. Instructed her about saul care and return precautions. - Vital Signs Vital signs: Temp Pulse Resp BP Pulse Ox 98.2 F 69 16 136/61 H 90 L 12/29/17 09:02 12/29/17 09:02 12/29/17 09:02 12/29/17 09:02 12/29/17 09:02 - Laboratory Laboratory results interpreted by me: 12/29/17 10:35 Urine Protein 100 H Urine Glucose (UA) 50 H Urine Blood MODERATE H Ur Leukocyte Esterase MODERATE H Discharge - Discharge Clinical Impression: Obstructed Saul catheter Qualifiers: Encounter type: initial encounter Qualified Code(s): T83.091A - Other mechanical complication of indwelling urethral catheter, initial encounter UTI (urinary tract infection) Qualifiers: Urinary tract infection type: acute cystitis Hematuria presence: with hematuria Qualified Code(s): N30.01 - Acute cystitis with hematuria Condition: Stable Disposition: HOME, SELF-CARE Additional Instructions: Saul Catheter Care Tube Position: Keep the catheter connected to the drainage tubing at all times. Avoid pulling on the catheter. Keep the drainage tube taped to the mid- thigh, on top of your leg (not underneath it). Be sure there are no kinks or loops in the tube. Keep the drainage bag below the bladder. When in bed, the drainage bag should hang below the abdomen but should not lie on the floor. The drainage bag has hooks at the top so it can be hung on a chair or bed. Daily Cleaning: Wash your hands with soap and water before and after caring for your catheter. Twice a day, clean yourself where the catheter goes into the urethra. Use a warm, soapy wash cloth to clean around the urethral opening and the first few inches of the catheter. Females should wash from front to back to decrease the risk of infection from fecal material. After washing with soap, rinse the area with water. Do not put powder around the catheter. Apply ointment only if instructed by your doctor or nurse. Follow up if you develop fever or chills, flank or abdominal pain, blood in the urine, or if urine is not draining into the catheter. URINARY TRACT INFECTION: Your evaluation indicates that you have a urinary tract infection. This is due to germs growing in the bladder. This is a common problem. This infection usually responds quickly to antibiotics. Your antibiotic should be taken exactly as prescribed. Drink plenty of fluids -- three to four quarts a day. Occasionally, a bladder anesthetic will be prescribed to help stop the feeling of urgency until the antibiotic has a chance to clear the infection. This may cause your urine to be dark orange. Certain urine infections require a culture. If the doctor obtained a culture, the results will be back in two days. You should call to see if a change in treatment is needed. A repeat urinalysis after you finish treatment is often recommended. The physician will let you know if further testing is required. Call the doctor if you develop fever, chills, flank pain, inability to urinate, or blood in the urine. ANTIBIOTIC THERAPY: You have been given an antibiotic prescription. It's important that you take all the medication, unless instructed otherwise by your physician. Failure to complete the entire course can result in relapse of your condition. Common side effects of antibiotics include nausea, intestinal cramping, or diarrhea. Women may develop vaginal yeast infections, and babies can get yeast (thrush) in the mouth following the use of antibiotics. Contact your physician if you develop significant side effects from this medication. Allergy to this antibiotic can result in hives, wheezing, faintness, or itching. If symptoms of allergy occur, stop the medication and call the doctor. CEPHALEXIN: The antibiotic you've been prescribed is a member of the cephalosporin class. This type of antibiotic covers a wide variety of infections, including those of the skin, lungs, and urinary tract. It's useful for staph infections. This antibiotic is slightly similar to the penicillin family. In rare cases , a person who is allergic to penicillin will also be allergic to this medication. If you have had a severe allergic reaction to penicillin, and have not taken this antibiotic since that time, notify your doctor. Antibiotics which cover many germs ("broad spectrum" antibiotics) are more likely to cause diarrhea or "yeast" infections. Women prone to vaginal yeast problems may suffer an attack after taking this antibiotic. In infants, oral thrush (white spots "stuck" on the cheek) or yeast diaper rash may result. See your doctor if these problems occur. Call at once if you develop itching, hives , shortness of breath, or lightheadedness. URINARY ANESTHETIC AGENT: You have been given a medication (Pyridium) for urinary tract discomfort. This medicine numbs the lining of the bladder and urethra, resulting in less pain, burning, and urgency. You may take it as needed, according to instructions. When the symptoms resolve, you can stop this medication (be sure to continue any other medications the doctor has given you). This medicine turns the urine a dark orange. It may stain underwear. Occasionally, it can cause nausea. Return for evaluation if there are any unexpected effects, such as itching, hives, or shortness of breath. FOLLOW-UP CARE: If you have been referred to a physician for follow-up care, call the physician s office for an appointment as you were instructed or within the next two days. If you experience worsening or a significant change in your symptoms, notify the physician immediately or return to the Emergency Department at any time for re-evaluation. Prescriptions: Cephalexin Monohydrate [Keflex 500 mg Capsule] 500 mg PO TID 7 Days capsule Phenazopyridine HCl [Azo Urinary Pain Relief] 97.5 mg PO Q8H PRN #15 tablet PRN Reason: Phenazopyridine HCl [Pyridium 200 mg Tablet] 200 mg PO TID #15 tablet Referrals: GAVI STRONG MD [Primary Care Provider] - Follow up as needed [facility] [Provider Group] - Follow up as needed
[2017-12-29 10:58] LABS: APPEARANCE,URINE SLIGHTLY-CLOUDY; BILIRUBIN,URINE NEGATIVE (NEGATIVE); COLOR,URINE YELLOW; GLUCOSE, URINE 50 mg/dL (NEGATIVE); KETONES,URINE NEGATIVE (NEGATIVE); LEUKOCYTE ESTERASE,URINE MODERATE (NEGATIVE); NITRITE,URINE NEGATIVE (NEGATIVE); PROTEIN,URINE 100 mg/dL (NEGATIVE); URINE SPECIFIC GRAVITY 1.013; UROBILINOGEN,URINE NEGATIVE mg/dL (<2.0)
[2017-12-29 11:52] VITALS: BP 154/67
== END 2017-12-29 11:52 | disposition home or self-care (01) ==
LOC: ER 08:45
DX: T83.091A Other mechanical complication of indwelling urethral catheter, initial encounter (principal); Y73.8 Miscellaneous gastroenterology and urology devices associated with adverse incidents, not elsewhere classified; N30.01 Acute cystitis with hematuria; B37.3 Candidiasis of vulva and vagina; J44.9 Chronic obstructive pulmonary disease, unspecified; Z99.81 Dependence on supplemental oxygen; E11.9 Type 2 diabetes mellitus without complications; I10 Essential (primary) hypertension
CPT/HCPCS: 81001; 87086; 99283

== ENCOUNTER → 2018-01-12 | Outpatient (CLI) | payer MEDICARE, MEDICAID ==
[2018-01-12 10:28] LABS: HEMATOCRIT 33.9 % (36.0-47.0); HEMOGLOBIN 11.1 g/dL (12.0-15.5); MEAN CORPUSCULAR HEMOGLOBIN 29.8 pg (27.0-33.4); MEAN CORPUSCULAR HGB CONC 32.8 g/dL (32.0-36.0); MEAN CORPUSCULAR VOLUME 91 fl (80-97); PLATELET COUNT 372 10^3/uL (150-450); RED BLOOD COUNT 3.74 10^6/uL (3.72-5.28); RED CELL DISTRIBUTION WIDTH 15.8 % (11.5-14.0); WHITE BLOOD COUNT 5.6 10^3/uL (4.0-10.5)
[2018-01-12 10:45] LABS: AMORPHOUS SEDIMENT,URINE TRACE /HPF; APPEARANCE,URINE CLOUDY; BILIRUBIN,URINE NEGATIVE (NEGATIVE); COLOR,URINE YELLOW; GLUCOSE, URINE 50 mg/dL (NEGATIVE); KETONES,URINE NEGATIVE (NEGATIVE); LEUKOCYTE ESTERASE,URINE NEGATIVE (NEGATIVE); NITRITE,URINE NEGATIVE (NEGATIVE); PROTEIN,URINE >=500 mg/dL (NEGATIVE); URINE SPECIFIC GRAVITY 1.013; UROBILINOGEN,URINE NEGATIVE mg/dL (<2.0)
[2018-01-12 11:07] LABS: ANION GAP 15 (5-19); BLOOD UREA NITROGEN 32 mg/dL (7-20); CARBON DIOXIDE 21 mmol/L (22-30); CHLORIDE 109 mmol/L (98-107); GLUCOSE 148 mg/dL (75-110); SODIUM 144.7 mmol/L (137-145)
== END ==
LOC: OD 09:07
PROVIDERS: ATTEND Internal Medicine Nephrology
DX: N18.3 Chronic kidney disease, stage 3 (moderate) (principal); E87.5 Hyperkalemia; D64.9 Anemia, unspecified
CPT/HCPCS: 36415; 80048; 81001; 85027

== ENCOUNTER → 2018-02-10 | Outpatient (CLI) | payer MEDICARE, MEDICAID ==
[2018-02-10 10:52] LABS: HEMATOCRIT 36.7 % (36.0-47.0); HEMOGLOBIN 12.1 g/dL (12.0-15.5); MEAN CORPUSCULAR HEMOGLOBIN 29.8 pg (27.0-33.4); MEAN CORPUSCULAR VOLUME 90 fl (80-97); PLATELET COUNT 357 10^3/uL (150-450); RED BLOOD COUNT 4.06 10^6/uL (3.72-5.28); RED CELL DISTRIBUTION WIDTH 15.2 % (11.5-14.0); WHITE BLOOD COUNT 5.6 10^3/uL (4.0-10.5)
[2018-02-10 10:59] LABS: APPEARANCE,URINE CLEAR; BILIRUBIN,URINE NEGATIVE (NEGATIVE); COLOR,URINE YELLOW; GLUCOSE, URINE NEGATIVE (NEGATIVE); KETONES,URINE NEGATIVE (NEGATIVE); LEUKOCYTE ESTERASE,URINE NEGATIVE (NEGATIVE); NITRITE,URINE NEGATIVE (NEGATIVE); PROTEIN,URINE 100 mg/dL (NEGATIVE); URINE SPECIFIC GRAVITY 1.011; UROBILINOGEN,URINE NEGATIVE mg/dL (<2.0)
[2018-02-10 11:09] LABS: ANION GAP 14 (5-19); BLOOD UREA NITROGEN 29 mg/dL (7-20); CALCIUM 9.6 mg/dL (8.4-10.2); CARBON DIOXIDE 28 mmol/L (22-30); CHLORIDE 104 mmol/L (98-107); GLUCOSE 92 mg/dL (75-110); IRON(TIBC) 72.8 ug/dL (37-170); POTASSIUM 4.7 mmol/L (3.6-5.0); SODIUM 146.1 mmol/L (137-145)
[2018-02-10 11:16] LABS: URINE CREATININE 42.4 mg/dL (15-278)
[2018-02-10 11:24] LABS: UR PRO/CREAT RATIO RESULT 5.5 mg/mg (0.0-0.2); URINE PROTEIN 231.2 mg/dL (<12)
== END ==
LOC: OD 09:50
PROVIDERS: ATTEND Internal Medicine Nephrology
DX: E11.22 Type 2 diabetes mellitus with diabetic chronic kidney disease (principal); N18.3 Chronic kidney disease, stage 3 (moderate); R80.9 Proteinuria, unspecified; D64.9 Anemia, unspecified
CPT/HCPCS: 36415; 80048; 81001; 82570; 82728; 83540; 83550; 84156; 85027

== ENCOUNTER → 2018-06-09 | Outpatient (CLI) | payer MEDICARE, MEDICAID ==
[2018-06-09 13:41] LABS: APPEARANCE,URINE SLIGHTLY-CLOUDY; BILIRUBIN,URINE NEGATIVE (NEGATIVE); COLOR,URINE STRAW; GLUCOSE, URINE 150 mg/dL (NEGATIVE); KETONES,URINE NEGATIVE (NEGATIVE); LEUKOCYTE ESTERASE,URINE NEGATIVE (NEGATIVE); NITRITE,URINE NEGATIVE (NEGATIVE); PROTEIN,URINE 100 mg/dL (NEGATIVE); URINE SPECIFIC GRAVITY 1.011; UROBILINOGEN,URINE NEGATIVE mg/dL (<2.0)
[2018-06-09 13:56] LABS: ABSOLUTE EOSINOPHILS # (AUTO) 0.5 10^3/uL (0.0-0.6); ABSOLUTE LYMPHOCYTES (AUTO) 0.7 10^3/uL (0.5-4.7); ABSOLUTE MONOCYTES (AUTO) 0.4 10^3/uL (0.1-1.4); ABSOLUTE NEUT (AUTO) 3.8 10^3/uL (1.7-8.2); BASOPHILS % (AUTO) 0.8 % (0-2); EOSINOPHILS % (AUTO) 8.7 % (0-6); HEMATOCRIT 34.7 % (36.0-47.0); HEMOGLOBIN 11.7 g/dL (12.0-15.5); LYMPHOCYTES % (AUTO) 13.3 % (13-45); MEAN CORPUSCULAR HEMOGLOBIN 31.1 pg (27.0-33.4); MEAN CORPUSCULAR HGB CONC 33.7 g/dL (32.0-36.0); MEAN CORPUSCULAR VOLUME 92 fl (80-97); MONOCYTES % (AUTO) 7.7 % (3-13); PLATELET COUNT 407 10^3/uL (150-450); RED BLOOD COUNT 3.76 10^6/uL (3.72-5.28); RED CELL DISTRIBUTION WIDTH 13.5 % (11.5-14.0); SEGMENTED NEUTROPHILS % (AUTO) 69.5 % (42-78); TOTAL CELLS COUNTED % (AUTO) 100 %; WHITE BLOOD COUNT 5.5 10^3/uL (4.0-10.5)
[2018-06-09 13:58] LABS: UR PRO/CREAT RATIO RESULT 1.7 mg/mg (0.0-0.2); URINE CREATININE 45.8 mg/dL (15-278); URINE PROTEIN 78.5 mg/dL (<12)
[2018-06-09 14:09] LABS: INTERNATIONAL RATION (INR) 0.87; PROTHROMBIN TIME 12.2 SEC (11.4-15.4)
[2018-06-09 14:10] LABS: PARTIAL THROMBOPLASTIN TIME 35.7 SEC (23.5-35.8)
[2018-06-09 14:15] LABS: ALANINE AMINOTRANSFERASE 14 U/L (9-52); ALBUMIN 3.8 g/dL (3.5-5.0); ALKALINE PHOSPHATASE 106 U/L (38-126); ANION GAP 11 (5-19); ASPARTATE AMINO TRANSFERASE 12 U/L (14-36); BILIRUBIN,DIRECT 0.3 mg/dL (0.0-0.4); BILIRUBIN,TOTAL 0.7 mg/dL (0.2-1.3); BLOOD UREA NITROGEN 37 mg/dL (7-20); CARBON DIOXIDE 23 mmol/L (22-30); CHLORIDE 107 mmol/L (98-107); GLUCOSE 341 mg/dL (75-110); POTASSIUM 5.1 mmol/L (3.6-5.0); TOTAL PROTEIN 7.5 g/dL (6.3-8.2)
[2018-06-09 14:18] LABS: HEMATOCRIT 34.7 % (36.0-47.0); HEMOGLOBIN 11.7 g/dL (12.0-15.5); MEAN CORPUSCULAR HEMOGLOBIN 31.1 pg (27.0-33.4); MEAN CORPUSCULAR HGB CONC 33.7 g/dL (32.0-36.0); MEAN CORPUSCULAR VOLUME 92 fl (80-97); PLATELET COUNT 407 10^3/uL (150-450); RED BLOOD COUNT 3.76 10^6/uL (3.72-5.28); RED CELL DISTRIBUTION WIDTH 13.5 % (11.5-14.0); WHITE BLOOD COUNT 5.5 10^3/uL (4.0-10.5)
[2018-06-09 14:56] LABS: ANION GAP 11 (5-19); BLOOD UREA NITROGEN 37 mg/dL (7-20); CARBON DIOXIDE 23 mmol/L (22-30); CHLORIDE 107 mmol/L (98-107); GLUCOSE 341 mg/dL (75-110); POTASSIUM 5.1 mmol/L (3.6-5.0)
== END ==
LOC: OD 12:40
PROVIDERS: ATTEND Internal Medicine Cardiovascular Disease
DX: E11.22 Type 2 diabetes mellitus with diabetic chronic kidney disease (principal); N18.3 Chronic kidney disease, stage 3 (moderate); R80.9 Proteinuria, unspecified; D64.9 Anemia, unspecified; E87.5 Hyperkalemia; R07.9 Chest pain, unspecified
CPT/HCPCS: 36415; 80048; 80053; 81001; 82570; 83735; 84156; 85025; 85027; 85610; 85730

== ENCOUNTER → 2018-06-24 | Outpatient (CLI) | payer MEDICARE, MEDICAID ==
--- NOTE | 2018-06-24 15:42 | WOMENS IMAGING REPORT ---
EXAM DESCRIPTION: BILAT SCREENING MAMMO W/CAD COMPLETED DATE/TIME: 06/24/2018 3:30 pm REASON FOR STUDY: SCREENING MAMMO Z12.31 ENCNTR SCREEN MAMMOGRAM FOR MALIGNANT NEOPLASM OF JAQUI COMPARISON: 2013, 2014 TECHNIQUE: Standard craniocaudal and mediolateral oblique views of each breast recorded using digita l acquisition. LIMITATIONS: None. FINDINGS: No masses, calcifications or architectural distortion. No areas of suspicion. Read with the assistance of CAD. [facility] - R2 Cenova Version 1.3 .[facility] - R2 Cenova Version 1.3 .[facility] - R2 Cenova Version 2.4 .[facility] [place]2 Cenova Version 2.4 .[facility] - R2 Dynamic Balancer Version 9.2 IMPRESSION: NORMAL MAMMOGRAM. BIRADS 1. BREAST DENSITY: a. The breasts are almost entirely fatty. BIRAD: 1 NEGATIVE RECOMMENDATION: ROUTINE SCREENING COMMENT: The patient has been notified of the results by letter per SA requirements. Additional no tification policies are in place for contacting patient with suspicious or incomplete findings. Quality ID #[id number]: The [employer] recommends an annual screening mammogram for women aged 40 years or over. This facility utilizes a reminder system to ensure that all patients receive reminder letters, and/or direct phone calls for appointments. This includes reminders for routine scr eening mammograms, diagnostic mammograms, or other Breast Imaging Interventions when appropriate. Th is patient will be placed in the appropriate reminder system. The [employer] (ACR) has developed recommendations for screening MRI of the breast s in certain patient populations, to be used in conjunction with mammography. Breast MRI surveillanc e may be appropriate for women with more than 20% lifetime risk of developing breast cancer as deter mined by genetic testing, significant family history of the disease, or history of mantle radiation f or Hodgkins Disease. ACR Practice Guidelines 2008. TECHNICAL DOCUMENTATION: FINDING NUMBER: (1) ASSESSMENT: (1) JOB ID: [id number] [employer]- All Rights Reserved Reading location - IP/workstation name: [facility]-[email or web address]
== END ==
LOC: WI 14:41
PROVIDERS: ATTEND Internal Medicine
DX: Z12.31 Encounter for screening mammogram for malignant neoplasm of breast (principal)
CPT/HCPCS: 77067

== ENCOUNTER → 2018-06-27 | Outpatient (CLI) | payer MEDICARE, MEDICAID ==
[2018-06-28 09:12] LABS: CHOLESTEROL 228.27 mg/dL (0-200); TRIGLYCERIDES 143 mg/dL (<150)
[2018-06-28 09:24] LABS: DIRECT LDL 138 mg/dL (<100)
== END ==
LOC: OD 10:09
PROVIDERS: ATTEND Internal Medicine
DX: E11.8 Type 2 diabetes mellitus with unspecified complications (principal); E78.5 Hyperlipidemia, unspecified; E03.9 Hypothyroidism, unspecified
CPT/HCPCS: 36415; 80061; 83036; 84443

== ENCOUNTER → 2018-07-07 | Outpatient (CLI) | payer MEDICARE, MEDICAID ==
[2018-07-07 08:38] LABS: ANION GAP 12 (5-19); BLOOD UREA NITROGEN 38 mg/dL (7-20); CALCIUM 9.7 mg/dL (8.4-10.2); CARBON DIOXIDE 26 mmol/L (22-30); CHLORIDE 105 mmol/L (98-107); GLUCOSE 63 mg/dL (75-110); POTASSIUM 5.5 mmol/L (3.6-5.0); SODIUM 142.5 mmol/L (137-145)
== END ==
LOC: OD 07:16
PROVIDERS: ATTEND Internal Medicine Nephrology
DX: N18.3 Chronic kidney disease, stage 3 (moderate) (principal); R80.9 Proteinuria, unspecified; E87.5 Hyperkalemia; D64.9 Anemia, unspecified
CPT/HCPCS: 36415; 80048

== ENCOUNTER → 2018-07-08 | Outpatient (CLI) | payer MEDICARE, MEDICAID | LOC: OD 13:59 | PROVIDERS: ATTEND Physician Assistant Medical | DX: E87.5 Hyperkalemia (principal) | CPT/HCPCS: 36415; 84132 ==

== ENCOUNTER → 2018-09-12 | Outpatient (CLI) | payer MEDICARE, MEDICAID ==
--- NOTE | 2018-09-12 13:26 | RADIOLOGY REPORT (SQ) ---
EXAM DESCRIPTION: CT ABD/PELVIS NO ORAL OR IV COMPLETED DATE/TIME: 09/12/2018 1:08 pm REASON FOR STUDY: K46.9 UNSPECIFIED ABDOMINAL HERNIA WITHOUT OBSTRUCTION OR GANGRENE K46.9 UNSPECIF IED ABDOMINAL HERNIA WITHOUT OBSTRUCTION OR GA COMPARISON: ABDOMINAL ULTRASOUND 12/22/2017 CT CHEST 04/09/2017 CT ABDOMEN PELVIS 12/18/2016 TECHNIQUE: CT scan of the abdomen and pelvis performed without intravenous or oral contrast. Images reviewed with lung, soft tissue, and bone windows. Reconstructed coronal and sagittal MPR images revi ewed. All images stored on PACS. All CT scanners at this facility use dose modulation, iterative reconstruction, and/or weight based d osing when appropriate to reduce radiation dose to as low as reasonably achievable (ALARA). [facility]: Dose Right [facility]: CareDose [facility]: Dose Right [facility]: Teradose 4D [facility]: [employer] RADIATION DOSE: CT Rad equipment meets quality standard of care and radiation dose reduction techniq ues were employed. CTDIvol: 26.1 mGy. DLP: 1326 mGy-cm.mGy. LIMITATIONS: None. FINDINGS: LOWER CHEST: No significant findings. No nodules or infiltrates. NON-CONTRASTED LIVER, SPLEEN, ADRENALS: Evaluation limited by lack of IV contrast. No identified sign ificant masses. PANCREAS: No masses. No peripancreatic inflammatory changes. GALLBLADDER: No identified stones by CT criteria. No inflammatory changes to suggest cholecystitis. RIGHT KIDNEY AND URETER: No suspicious masses. Assessment limited by lack of IV contrast. No signif icant calcifications. No hydronephrosis or hydroureter. LEFT KIDNEY AND URETER: No suspicious masses. Assessment limited by lack of IV contrast. No signifi cant calcifications. No hydronephrosis or hydroureter. AORTA AND RETROPERITONEUM: No aneurysm. No retroperitoneal masses or adenopathy. BOWEL AND PERITONEAL CAVITY: No obvious masses or inflammatory changes. No free fluid. APPENDIX: Normal. PELVIS, BLADDER, AND ABDOMINAL WALL:No abnormal masses. No free fluid. Bladder normal. BONES: Degenerative disc changes lower lumbar spine OTHER: No other significant finding. IMPRESSION: NO SIGNIFICANT OR ACUTE PROCESS IN THE ABDOMEN OR PELVIS. COMMENT: Quality ID # [id number]: Final reports with documentation of one or more dose reduction techniques (e.g., Automated exposure control, adjustment of the mA and/or kV according to patient size, use of iterative reconstruction technique) TECHNICAL DOCUMENTATION: JOB ID: [id number] [employer]- All Rights Reserved Reading location - IP/workstation name: [facility]
== END ==
LOC: RAD 13:44
PROVIDERS: ATTEND Internal Medicine
DX: K46.9 Unspecified abdominal hernia without obstruction or gangrene (principal); M51.36 Other intervertebral disc degeneration, lumbar region
CPT/HCPCS: 74176

== ENCOUNTER → 2018-10-19 | Outpatient (CLI) | payer MEDICARE, MEDICAID ==
[2018-10-19 11:17] LABS: APPEARANCE,URINE CLEAR; BILIRUBIN,URINE NEGATIVE (NEGATIVE); COLOR,URINE YELLOW; GLUCOSE, URINE 50 mg/dL (NEGATIVE); KETONES,URINE NEGATIVE (NEGATIVE); LEUKOCYTE ESTERASE,URINE NEGATIVE (NEGATIVE); NITRITE,URINE NEGATIVE (NEGATIVE); PROTEIN,URINE 100 mg/dL (NEGATIVE); UROBILINOGEN,URINE NEGATIVE mg/dL (<2.0)
[2018-10-19 11:21] LABS: UR PRO/CREAT RATIO RESULT 3.4 mg/mg (0.0-0.2); URINE CREATININE 43.7 mg/dL (15-278); URINE PROTEIN 147.8 mg/dL (<12)
[2018-10-19 11:24] LABS: HEMATOCRIT 36.5 % (36.0-47.0); HEMOGLOBIN 12.3 g/dL (12.0-15.5); MEAN CORPUSCULAR HEMOGLOBIN 30.7 pg (27.0-33.4); MEAN CORPUSCULAR HGB CONC 33.7 g/dL (32.0-36.0); MEAN CORPUSCULAR VOLUME 91 fl (80-97); PLATELET COUNT 381 10^3/uL (150-450); RED BLOOD COUNT 4.02 10^6/uL (3.72-5.28); RED CELL DISTRIBUTION WIDTH 13.6 % (11.5-14.0); WHITE BLOOD COUNT 5.3 10^3/uL (4.0-10.5)
[2018-10-19 11:47] LABS: ANION GAP 8 (5-19); BLOOD UREA NITROGEN 36 mg/dL (7-20); CARBON DIOXIDE 28 mmol/L (22-30); CHLORIDE 108 mmol/L (98-107); GLUCOSE 94 mg/dL (75-110); POTASSIUM 4.8 mmol/L (3.6-5.0); SODIUM 143.8 mmol/L (137-145)
== END ==
LOC: OD 10:36
PROVIDERS: ATTEND Internal Medicine Nephrology
DX: E11.22 Type 2 diabetes mellitus with diabetic chronic kidney disease (principal); N18.3 Chronic kidney disease, stage 3 (moderate); R80.9 Proteinuria, unspecified; E87.5 Hyperkalemia
CPT/HCPCS: 36415; 80048; 81001; 82570; 84156; 85027

== ENCOUNTER → 2018-11-10 | Outpatient (CLI) | payer MEDICARE, MEDICAID ==
--- NOTE | 2018-11-10 15:35 | WOMENS IMAGING REPORT ---
EXAM DESCRIPTION: TRANSVAGINAL ULTRASOUND COMPLETED DATE/TIME: 11/10/2018 1:57 pm REASON FOR STUDY: N95.0 POSTMENOPAUSAL BLEEDING N95.0 POSTMENOPAUSAL BLEEDING COMPARISON: None. TECHNIQUE: Dynamic and static grayscale images acquired of the pelvis via transvaginal approach and recorded on PACS. Additional selected color Doppler and spectral images recorded. LIMITATIONS: None. FINDINGS: UTERUS: Contour normal. No mass. ENDOMETRIAL STRIPE: Small volume of fluid and possible polyps. CERVIX: No nabothian cysts. RIGHT OVARY AND DOPPLER: Ovary not visualized. LEFT OVARY AND DOPPLER: Ovary not visualized. FREE FLUID: None noted. OTHER: No other significant finding. MEASUREMENTS: UTERUS: 8.0 x 3.8 x 5.7 cm ENDOMETRIAL STRIPE: 7 mm RIGHT OVARY: Not visualized. LEFT OVARY: Not visualized. IMPRESSION: The endometrial stripe normal in transverse diameter at 7 mm. Fluid and possible endome trial polyps. . TECHNICAL DOCUMENTATION: JOB ID: [id number] [employer]- All Rights Reserved Rev Reading location - IP/workstation name: [email or web address]
== END ==
LOC: WI 13:00
PROVIDERS: ATTEND Internal Medicine
DX: N95.0 Postmenopausal bleeding (principal)
CPT/HCPCS: 76830

== ENCOUNTER 2018-12-05 10:32 | Day surgery (SDC) | payer MEDICARE, MEDICAID ==
[~2018-12-05 10:32] MED LIST changes: -FERUMOXYTOL (ESRD) 510 MG/NS 100 ML IV PRN; +PROPOFOL INJ 200 MG/20 ML VIAL IV ONE
[2018-12-05] MEDS ORDERED: ACETAMINOPHEN 325 MG TABLET ONE (12:30)
[2018-12-05 12:42] VITALS: BP 170/84
--- NOTE | 2018-12-05 12:44 | Operative Report ---
Operative Report DATE OF SURGERY: 12/05/18 Operative Report: The risks, benefits and alternatives of the procedure including the risk of bleeding, perforation requiring surgery have been explained to the patient in detail and informed consent was obtained. Patient is taken back to the endoscopy suite and placed in a left, lateral decubital position. Timeout was called. Propofol medication is administered. Rectal examination is done which did not reveal any masses, tears or fissures. An Olympus videoscope is inserted into the patient's rectum. The scope was then carefully advanced all the way to the cecum. The cecum was identified by the usual anatomical landmarks including the ileocecal valve as well as the appendiceal office. Photodocumentation was obtained. The scope was then sequentially pulled back via the various segments of the colon including the ascending colon, hepatic flexure, transverse colon, splenic flexure, descending colon and finally into the rectosigmoid portions of the colon. Retroflexion maneuver was performed. PREOPERATIVE DIAGNOSIS: Colorectal cancer screening POSTOPERATIVE DIAGNOSIS: Descending colon polyp that was removed via biopsy forceps. Internal hemorrhoids OPERATION: Colonoscopy with biopsy SURGEON: MAY ASIF ANESTHESIA: LMAC TISSUE REMOVED OR ALTERED: As noted above. COMPLICATIONS: None. ESTIMATED BLOOD LOSS: None. INTRAOPERATIVE FINDINGS: As noted above. PROCEDURE: Patient tolerated the procedure well. No immediate postprocedure complications are noted. Patient discharged in good condition. Discharge date 12/05/2018. Discharge diet: Regular. Discharge activity: Regular. 2-3-week follow-up to discuss findings. Patient is instructed call the office or proceed to the emergency room should there be any further questions. 3-5-year surveillance colonoscopy depending on the pathology of the polyp.
--- NOTE | 2018-12-05 20:01 | EKG REPORT ---
SEVERITY:- ABNORMAL ECG - SINUS RHYTHM LEFT BUNDLE BRANCH BLOCK : Confirmed by: Perri Campbell MD 05-Dec-2018 20:00:43
== END 2018-12-05 12:42 | disposition home or self-care (01) ==
LOC: END 10:32
PROVIDERS: ATTEND Internal Medicine Gastroenterology
DX: Z12.11 Encounter for screening for malignant neoplasm of colon (principal); D12.4 Benign neoplasm of descending colon; K64.8 Other hemorrhoids; G47.33 Obstructive sleep apnea (adult) (pediatric); R06.02 Shortness of breath; E11.9 Type 2 diabetes mellitus without complications; I10 Essential (primary) hypertension; I20.9 Angina pectoris, unspecified; I49.9 Cardiac arrhythmia, unspecified; Z86.73 Personal history of transient ischemic attack (TIA), and cerebral infarction without residual deficits; Z79.4 Long term (current) use of insulin; Z79.84 Long term (current) use of oral hypoglycemic drugs; Z79.899 Other long term (current) drug therapy
CPT/HCPCS: 45380; 82962; 88305 ×2; 93005; 93010; A9270; J2704; 811

== ENCOUNTER → 2018-12-07 | Outpatient (CLI) | payer MEDICARE, MEDICAID ==
[2018-12-07 09:15] LABS: ABSOLUTE EOSINOPHILS # (AUTO) 0.4 10^3/uL (0.0-0.6); ABSOLUTE LYMPHOCYTES (AUTO) 0.9 10^3/uL (0.5-4.7); ABSOLUTE MONOCYTES (AUTO) 0.5 10^3/uL (0.1-1.4); ABSOLUTE NEUT (AUTO) 2.9 10^3/uL (1.7-8.2); EOSINOPHILS % (AUTO) 9.1 % (0-6); HEMATOCRIT 34.5 % (36.0-47.0); HEMOGLOBIN 11.5 g/dL (12.0-15.5); LYMPHOCYTES % (AUTO) 18.5 % (13-45); MEAN CORPUSCULAR HEMOGLOBIN 30.1 pg (27.0-33.4); MEAN CORPUSCULAR HGB CONC 33.2 g/dL (32.0-36.0); MEAN CORPUSCULAR VOLUME 91 fl (80-97); PLATELET COUNT 390 10^3/uL (150-450); RED CELL DISTRIBUTION WIDTH 13.6 % (11.5-14.0); SEGMENTED NEUTROPHILS % (AUTO) 60.4 % (42-78); TOTAL CELLS COUNTED % (AUTO) 100 %; WHITE BLOOD COUNT 4.8 10^3/uL (4.0-10.5)
== END ==
LOC: OD 08:11
PROVIDERS: ATTEND Internal Medicine
DX: D64.9 Anemia, unspecified (principal); E13.9 Other specified diabetes mellitus without complications
CPT/HCPCS: 36415; 83036; 85025

== ENCOUNTER → 2019-01-31 | Outpatient (CLI) | payer MEDICARE, MEDICAID ==
--- NOTE | 2019-01-31 12:05 | RADIOLOGY REPORT (SQ) ---
EXAM DESCRIPTION: L SPINE WHOLE COMPLETED DATE/TIME: 01/31/2019 9:36 am REASON FOR STUDY: M47.816 SPONDYLOSIS WITHOUT MYELOPATHY OR RADICULOPATHY, LUMBAR REGION COMPARISON: CT abdomen pelvis 09/12/2018 NUMBER OF VIEWS: Five views including obliques. TECHNIQUE: AP, lateral, oblique, and sacral radiographic images acquired of the lumbar spine. LIMITATIONS: None. FINDINGS: MINERALIZATION: Normal. SEGMENTATION: Normal. No transitional anatomy. ALIGNMENT: Normal. VERTEBRAE: Maintained height. No fracture or worrisome bone lesion. DISCS: Disc space loss of height at L1-2, L2-3, L3-4 POSTERIOR ELEMENTS: Pedicles and facets are intact. No pars defect or posterior arch defects. Bilat eral L4-5 and L5-S1 facet arthropathy. HARDWARE: None in the spine. PARASPINAL SOFT TISSUES: Normal. PELVIS: Not in the field of view. Right-sided SI joint sclerosis. OTHER: No other significant finding. IMPRESSION: Multilevel degenerative disc changes. Lower lumbar facet arthropathy TECHNICAL DOCUMENTATION: JOB ID: [id number]- All Rights Reserved Reading location - IP/workstation name: [email or web address]
== END ==
LOC: RAD 09:08
PROVIDERS: ATTEND Internal Medicine
DX: M47.816 Spondylosis without myelopathy or radiculopathy, lumbar region (principal); M51.36 Other intervertebral disc degeneration, lumbar region
CPT/HCPCS: 72110

== ENCOUNTER → 2019-02-03 | Outpatient (CLI) | payer MEDICARE, MEDICAID ==
--- NOTE | 2019-02-03 10:35 | RADIOLOGY REPORT (SQ) ---
EXAM DESCRIPTION: FOOT RIGHT COMPLETE COMPLETED DATE/TIME: 02/03/2019 10:24 am REASON FOR STUDY: TOE FX (S92.919A) S92.919A UNSP FRACTURE OF UNSP TOE(S), INIT FOR CLOS FX COMPARISON: None. NUMBER OF VIEWS: Three views. TECHNIQUE: AP, lateral and oblique radiographic images acquired of the right foot. LIMITATIONS: None. FINDINGS: MINERALIZATION: Normal. BONES: No acute fracture or dislocation. No worrisome bone lesions. JOINTS: There are advanced degenerative changes in the 1st metatarsal phalangeal joint with joint spa ce narrowing and osteophytosis. SOFT TISSUES: No soft tissue swelling. No foreign body. OTHER: No other significant finding. IMPRESSION: Degenerative changes in the 1st metatarsal phalangeal joint. No acute fracture or dislo cation. TECHNICAL DOCUMENTATION: JOB ID: [id number] [employer]- All Rights Reserved Reading location - IP/workstation name: [email or web address]
== END ==
LOC: RAD 10:00
PROVIDERS: ATTEND Internal Medicine
DX: S92.911A Unspecified fracture of right toe(s), initial encounter for closed fracture (principal); M19.071 Primary osteoarthritis, right ankle and foot; X58.XXXA Exposure to other specified factors, initial encounter

== ENCOUNTER → 2019-02-27 | Outpatient (CLI) | payer MEDICARE, MEDICAID ==
--- NOTE | 2019-02-27 19:14 | RADIOLOGY REPORT (SQ) ---
EXAM DESCRIPTION: RIBS RIGHT W/PA CHEST COMPLETED DATE/TIME: 02/27/2019 2:10 pm REASON FOR STUDY: FX RIBS COMPARISON: None. TECHNIQUE: Frontal view of the chest and additional views of the right ribs acquired. NUMBER OF VIEWS: Five view. LIMITATIONS: None. FINDINGS: FRONTAL CXR: No pneumothorax. No pleural effusion. No atelectasis or infiltrates. RIBS: No displaced rib fractures. No lytic or blastic bony lesions. OTHER: No other significant finding. IMPRESSION: NO PNEUMOTHORAX. NO DISPLACED RIB FRACTURES. COMMENT: SITE OF TRAUMA/COMPLAINT MARKED/STAMP COMPLETED: None TECHNICAL DOCUMENTATION: JOB ID: [id number] [employer]- All Rights Reserved Reading location - IP/workstation name: [email or web address]
== END ==
LOC: RAD 13:39
PROVIDERS: ATTEND Internal Medicine
DX: S22.31XA Fracture of one rib, right side, initial encounter for closed fracture (principal); X58.XXXA Exposure to other specified factors, initial encounter

== ENCOUNTER → 2019-03-10 | Outpatient (CLI) | payer MEDICARE, MEDICAID ==
--- NOTE | 2019-03-10 14:44 | RADIOLOGY REPORT (SQ) ---
EXAM DESCRIPTION: CT CHEST WITHOUT COMPLETED DATE/TIME: 03/10/2019 1:34 pm REASON FOR STUDY: CHEST PAIN (R07.9) R07.9 CHEST PAIN, UNSPECIFIED COMPARISON: 2017 TECHNIQUE: CT scan performed of the chest without intravenous contrast. Images reviewed with lung, soft tissue and bone windows. Reconstructed coronal and sagittal MPR images reviewed. All images st ored on PACS. All CT scanners at this facility use dose modulation, iterative reconstruction, and/or weight based d osing when appropriate to reduce radiation dose to as low as reasonably achievable (ALARA). [facility]: Dose Right [facility]: CareDose [facility]: Dose Right [facility]: Teradose 4D [facility]: Smart [employer] RADIATION DOSE: CT Rad equipment meets quality standard of care and radiation dose reduction techniq ues were employed. CTDIvol: 17.8 mGy. DLP: 595 mGy-cm. mGy. LIMITATIONS: No technical limitations. FINDINGS: LUNGS AND PLEURA: Right lower lobe scar. HILAR AND MEDIASTINAL STRUCTURES: No identified masses or abnormal nodes. No obvious aneurysm. HEART AND VASCULAR STRUCTURES: No aneurysm. No pericardial effusion. Mild coronary calcification. UPPER ABDOMEN: No significant findings. Limited exam. THYROID AND OTHER SOFT TISSUES: No masses. No adenopathy. BONES: No significant finding. HARDWARE: None in the chest. OTHER: No other significant findings. IMPRESSION: NO SIGNIFICANT FINDING ON NON-CONTRASTED CHEST CT. TECHNICAL DOCUMENTATION: JOB ID: [id number] Quality ID # [id number]: Final reports with documentation of one or more dose reduction techniques (e.g., Au tomated exposure control, adjustment of the mA and/or kV according to patient size, use of iterative reconstruction technique) 2010 [employer]- All Rights Reserved Reading location - IP/workstation name: [email or web address]
== END ==
LOC: RAD 13:10
PROVIDERS: ATTEND Internal Medicine
DX: R07.9 Chest pain, unspecified (principal)
CPT/HCPCS: 71250